=== PATIENT | female | born 1950 | race Caucasian/White ===

== ENCOUNTER → 2017-10-03 03:04 | Outpatient (CLI) | payer OTHER, SELFPAY ==
--- NOTE | 2017-10-03 09:14 | DI.REPORT_ITS ---
SYMPTOM/DIAGNOSIS: EPIGASTRIC PAIN, R10.3 ABDOMEN ULTRASOUND: Comparison is made with 15 May 2007. There is slightly increased liver echogenicity, consistent with mild fatty infiltration. No focal liver lesions or biliary dilatation is seen. The gallbladder is unremarkable, without evidence of stones or wall thickening. A 12 mm cyst is seen at the inferior pole of the right kidney. No hydronephrosis or stones are identified in either kidney. Pancreas, spleen and aorta are unremarkable. No ascites is seen. IMPRESSION: Mild fatty infiltration of the liver.
== END ==
PROVIDERS: PCP Family Medicine; Visit Provider Family Medicine
DX: R10.13 Epigastric pain (principal); K76.0 Fatty (change of) liver, not elsewhere classified; N28.1 Cyst of kidney, acquired
CPT/HCPCS: 76700

== ENCOUNTER 2018-04-06 09:43 | Outpatient (CLI) | payer OTHER, MEDICARE, SELFPAY ==
[2018-04-06 11:53] LABS: ALT 60 U/L (12-78); AST 35 U/L (15-37); Alkaline Phosphatase 92 U/L (46-116); Anion Gap 10.5 mmol/L (3-11); BUN 18 mg/dL (7-18); Bilirubin, Total 0.4 mg/dL (0.2-1.0); CO2 28.5 mmol/L (21.0-32.0); CREATININE 0.61 mg/dL (0.55-1.02); Calcium 9.4 mg/dL (8.5-10.1); Chloride 102 mmol/L (98-107); Cholesterol 245 mg/dL (50-200); Glucose 113 mg/dL (70-100); HDL Cholesterol 58 mg/dL (40-60); LDL CHOLESTEROL 153 mg/dL (<100); Potassium 3.9 mmol/L (3.5-5.1); Sodium 141 mmol/L (136-145); Total Protein 7.6 g/dL (6.4-8.2); Triglyceride 135 mg/dL (30-150); Vitamin B12 617 pg/mL (193-986)
== END 2018-04-06 10:03 ==
PROVIDERS: PCP Family Medicine; Visit Provider Family Medicine
DX: Z00.00 Encounter for general adult medical examination without abnormal findings (principal); I10 Essential (primary) hypertension; E78.5 Hyperlipidemia, unspecified; K21.9 Gastro-esophageal reflux disease without esophagitis
CPT/HCPCS: 36415; 80053; 80061; 83721; 82607

== ENCOUNTER 2018-05-11 06:27 | Day surgery (SDC) | payer OTHER, MEDICARE, SELFPAY ==
[2018-05-11 06:43] VITALS: BP 137/87; PULSE 90; RESP 16; TEMP 36.5; O2SAT 98
[2018-05-11] MEDS: Lidocaine 2% Multi-Dose 50 ML VIAL (07:43)
--- NOTE | 2018-05-11 08:07 | PDOC.DSDIS_ITS ---
Discharge Plan Disposition Patient Disposition: HOME Condition: Good Discharge Details Reason For Visit: Release trigger RRF Attending Provider: Haseeb Ro Primary Care Provider: Rebecca Monsivais Home Meds and New Rx's Prescriptions: New hydrocodone-acetaminophen 5-325 mg tablet 1 tab PO Q6H PRN (Reason: pain) Qty: 7 RF: 0 Continued Lactobacillus acidophilus capsule 10,000 mmu cells PO DAILY RF: 0 loratadine 10 mg tablet 10 mg PO DAILY PRNRF: 0 omeprazole 20 mg tablet,delayed release (DR/EC) 20 mg PO DAILY Qty: 90 RF: 4 cholecalciferol (vitamin D3) 2,000 UNIT tablet 2,000 unit PO DAILY RF: 0 albuterol sulfate [ProAir HFA] 8.5 GM HFA aerosol inhaler 2 puff Inhalation Q4H PRN Qty: 1 RF: 12 fish oil-dha-epa 1 EACH capsule 1 ea PO DAILY RF: 0 ranitidine HCl [Zantac Maximum Strength] 150 MG tablet 150 mg PO daily prn RF: 0 hydrochlorothiazide 25 MG tablet 25 mg PO DAILY Qty: 90 RF: 12 Discharge Instructions Additional Instructions: Bend and straighten R ring finger 10 times/hour when awake to prevent swelling and stiffness. Keep dressings dry and intact for 48 hours. Remove dressings, shower or bathe and get incision wet after 48 hours. Leave incision uncovered when it is dry and sealed. Follow up with in 2 weeks. Hydrocodone for breakthru pain, not relieved by tylenol or ibuprofen. Referrals: Haseeb Ro MD [ [facility] STAFF PHYSICIAN] - (f/u in 2 weeks.) Activity:: Activity as Tolerated Remove Dressings/Wound Care:: 48 hours Shower/Bathe:: 48 hours Diet:: As Tolerated Discharge Orders Discharge Orders: Discharge Order (Routine); Ordered 05/11/18 Ordered By: Haseeb Ro DS: Diagnosis Discharge Diagnosis (1) Trigger finger: Status: Acute
--- NOTE | 2018-05-11 15:20 | ROE_ITS ---
DATE OF PROCEDURE: May 11, 2018 PREOPERATIVE DIAGNOSIS: Trigger right ring finger. POSTOPERATIVE DIAGNOSIS: Same. PROCEDURE: Tendon sheath incision for release of trigger right ring finger. ANESTHESIA: Local infiltration 1% Xylocaine solution and 0.5% Marcaine with epinephrine solution. SURGEON: Haseeb Ro M.D. INDICATIONS: This is a 67-year-old white female with painful locking of her right ring finger. This interferes with her work activities, including typing, because she is right-handed. Because of the failure of the finger to improve over the course of several months, trigger finger release was recomm ended to alleviate her symptoms. The risks and complications of the procedure were explained to the patient in detail preoperatively. PROCEDURE: The patient was taken to the Operating Room on 05/11/18. She was placed supine on the ope rating table. The right hand is prepped and draped free in the usual sterile fashion. Incision was made parallel to the distal palmar flexion crease and about 5 mm distal to it, centered over the flex or sheath of the right ring finger. The incision was made after infiltrating the skin and subcu with 1% Xylocaine solution. About a 2 cm incision was made. Blunt-tipped Littler scissors were then use d to mobilize the soft tissues away from the flexor sheath. The flexor sheath was directly visualize d. A longitudinal incision was made in the midline of the proximal vasile of the flexor sheath. The incision was then extended proximally and distally using blunt-tipped Littler scissors. The patient was then asked to actively flex and extend her ring finger. She could flex and extend the ring fing er fully with no locking or triggering. The wound was irrigated with saline solution. The wound mar gins were infiltrated with 0.5% Marcaine with epinephrine solution. The skin edges were approximated with two interrupted #4-0 Nylon sutures. Sterile dressings were applied followed by a light val sive dressing to the palm. The patient tolerated the procedure well and was discharged to the [facility] in good condition. The patient was discharged home from the Day Surgery Unit when fully recovered from her procedure. S he was given instructions to continue to flex and extend her right ring finger ten times an hour whil e awake to prevent stiffness and swelling. She is to keep the dressings intact and dry for 48 hours. After 48 hours she can remove her dressings, shower or bathe and get her incision wet. She can [place] ve the incision uncovered when it's dry and sealed. She was given a prescription for breakthrough pa in of Hydrocodone with APAP 5/325 one tablet every six hours, if needed. She will take this for pain that's not relieved by Tylenol or ibuprofen. She will follow-up with me in two weeks.
== END 2018-05-11 08:30 | disposition home or self-care (01) ==
PROVIDERS: PCP Family Medicine; Visit Provider Orthopaedic Surgery
PROC: (CPT 26055; principal; 2018-05-11 07:30)
DX: M65.341 Trigger finger, right ring finger (principal)
CPT/HCPCS: 26055

== ENCOUNTER 2019-04-08 10:38 | Outpatient (CLI) | payer OTHER, SELFPAY ==
[2019-04-08 13:44] LABS: ALT 91 U/L (14-59); AST 70 U/L (15-37); Albumin 4.2 g/dL (3.4-5.0); Alkaline Phosphatase 101 U/L (46-116); Anion Gap 7.8 mmol/L (3-11); BUN 13 mg/dL (7-18); Bilirubin, Total 0.5 mg/dL (0.2-1.0); CO2 31.2 mmol/L (21.0-32.0); CREATININE 0.62 mg/dL (0.55-1.02); Calcium 9.9 mg/dL (8.5-10.1); Calculated LDL 159 mg/dL (<100); Chloride 102 mmol/L (98-107); Cholesterol 244 mg/dL (<200); Glucose 110 mg/dL (74-106); HDL Cholesterol 61 mg/dL (40-60); Sodium 141 mmol/L (136-145); TSH (W/Ref FT4) 1.15 uIU/mL (0.36-3.74); Total Protein 7.5 g/dL (6.4-8.2); Triglyceride 121 mg/dL (<150)
[2019-04-08 13:55] LABS: Hemoglobin A1C 6.4 % (3.8-5.6)
== END 2019-04-08 10:58 ==
PROVIDERS: PCP Family Medicine; Visit Provider Family Medicine
DX: I10 Essential (primary) hypertension (principal); R19.7 Diarrhea, unspecified; Z00.00 Encounter for general adult medical examination without abnormal findings; E11.9 Type 2 diabetes mellitus without complications
CPT/HCPCS: 36415; 80053; 80061; 83036; 84443

== ENCOUNTER 2019-06-21 01:29 | Outpatient (CLI) | payer OTHER, SELFPAY ==
--- NOTE | 2019-06-21 06:30 | DI.MAMMO_ITS ---
EXAM: MAMMO SCREENING CLINICAL HISTORY: screening,z12.39 TECHNIQUE: Mammograms were interpreted according to the usual protocol including computer analysis w ith CAD system, tomosynthesis and C-view imaging. COMPARISON: 2009 through 2017 FINDINGS: The breasts are composed of scattered fibroglandular densities, Breast Density category B. No suspicious masses or suspicious microcalcifications are seen. No skin thickening or abnormal axillary lymph nodes are seen. There has been no significant change from prior exams. IMPRESSION: BI-RADS category 1, negative mammogram. Yearly screening mammography is recommended. Breast density category B, scattered fibroglandular densities.
== END 2019-06-21 01:49 ==
PROVIDERS: PCP Family Medicine; Visit Provider Family Medicine
DX: Z12.31 Encounter for screening mammogram for malignant neoplasm of breast (principal)
CPT/HCPCS: 77063; 77067

== ENCOUNTER 2019-10-05 13:02 | Outpatient (REF) | payer MEDICARE, BC, SELFPAY ==
[2019-10-05 13:48] LABS: HCT 42.6 % (36.0-46.0); HGB 14.1 g/dL (11.2-15.7); MCH 28.7 pg (27.0-33.0); MCHC 33.1 % (32.0-36.0); MCV 86.8 fL (80-95); Platelet Count 282 10^3/uL (130-400); RBC 4.91 10^6/uL (3.93-5.22); RDW 13.1 % (11.7-14.6); WBC 5.91 10^3/uL (4.4-10.8)
[2019-10-05 14:30] LABS: ALT 93 U/L (14-59); AST 55 U/L (15-37); Albumin 4.1 g/dL (3.4-5.0); Alkaline Phosphatase 93 U/L (46-116); Anion Gap 10.9 mmol/L (3-11); BUN 12 mg/dL (7-18); Bilirubin, Total 0.4 mg/dL (0.2-1.0); CO2 28.1 mmol/L (21.0-32.0); CREATININE 0.69 mg/dL (0.55-1.02); Calcium 9.6 mg/dL (8.5-10.1); Calculated LDL 158 mg/dL (<100); Chloride 103 mmol/L (98-107); Cholesterol 243 mg/dL (<200); GGT 69 U/L (5-55); Glucose 122 mg/dL (74-106); HDL Cholesterol 58 mg/dL (40-60); Potassium 3.9 mmol/L (3.5-5.1); Sodium 142 mmol/L (136-145); Total Protein 7.5 g/dL (6.4-8.2); Triglyceride 136 mg/dL (<150)
[2019-10-05 14:32] LABS: Hemoglobin A1C 6.2 % (3.8-5.6)
[2019-10-07 04:55] LABS: Vitamin D 25 Total 38.4 ng/ml (30-100)
[2019-10-07 09:57] LABS: HBs Antibody, Qual Negative (See Note); HBs Antibody, Quant 6.1 mIU/mL (See Note); Hepatitis B Core Antibody Negative (Negative); Hepatitis B surface Ag Negative (Negative); Hepatitis C Ab w Rflx HCV PCR Negative (Negative)
== END 2019-10-05 13:22 ==
LOC: LBN 13:02
PROVIDERS: PCP Family Medicine; Visit Provider Family Medicine
DX: E11.9 Type 2 diabetes mellitus without complications (principal); I10 Essential (primary) hypertension; E78.5 Hyperlipidemia, unspecified; K44.9 Diaphragmatic hernia without obstruction or gangrene; M81.0 Age-related osteoporosis without current pathological fracture; R06.02 Shortness of breath; R79.89 Other specified abnormal findings of blood chemistry
CPT/HCPCS: 80053; 80061; 82306; 85027; 86704; 86706; 86803; 87340; 82977; 83036

== ENCOUNTER 2019-10-07 00:06 | Outpatient (CLI) | payer MEDICARE, BC, SELFPAY ==
--- NOTE | 2019-10-07 06:15 | DI.NM_ITS ---
APPROVED REPORT Exam: Exercise Treadmill Patient Location: Out-Patient Room/Bed: Stress Nurse: Yaima Turner RN BMI: 25.88 Baseline Rhythm: Sinus Rhythm Indications: Dyspnea on exertion Medical History Medical History: HTN, Hyperlipidemia, Pre-Diabetes, Asthma Cardiac Medications: Hydrochlorothiazide. Omeprazole. Fish Oil., Allergies: Lisinopril Cardiac Risk Factors: HTN, Hyperlipidemia, Pre-diabetes, Asthma, FHX of CAD Exercise History: Physically active Lung Sounds: Clear to auscultation Heart Sounds: Regular Stress Test Details Test: Exercise stress testing was performed using a Crescencio protocol. Nuclear Acquisition: Rest Tc-99m/Stress Tc-99m 1 day Rest Isotope: Tc-99m Sestamibi. Dose: 10.8 Date: 10/07/2019 Injection Time: 0850 Stress Isotope: Tc-99m Sestamibi. Dose: 32.8 Date: 10/07/2019 Injection Time: 1010 HR Resting HR Supine: 88 bpm Max Heart Rate (APMHR): 150 bpm Resting HR Standin bpm Target HR (85% APMHR): 127 bpm Max HR Achieved: 150 bpm % of APMHR: 100 Recovery HR: 98 bpm HR response to stress: Normal HR response to stress BP Resting BP Supine: 144/80 mmHg Resting BP Standin/82 mmHg Max BP: 170/72 mmHg Recovery BP: 140//78 mmHg BP response to stress: Normal blood pressure response to stress. ECG Resting ECG: Sinus Rhythm Stress ECG: Sinus Tachycardia ST Change: No significant ST segment depressions Arrhythmia: Rare PVC Recovery ECG: Sinus Rhythm Recovery ST Change: Normal Recovery Arrhythmia: None Clinical Reason for Termination: Fatigue Stress Symptoms: General Fatigue Exercise duration: 09 min00 sec Highest Stage Reached: Stage 3: 3.4 mph at 14% grade. Exercise capacity: 10.16 METs Stress ECG Conclusion 1. The patient exercised for 9 minutes (10 minutes) 2. There is no evidence of ischemia on the ECG portion of the exam. 3. Patient no symptoms suggestive of ischemia. Stress Test Summary STAGE Time (mins) Speed (mph) Grade (%) HR BP SYMPTOMS METS Supine 88 144/80 Standing 87 136/82 1 3 1.7 10 117 152/76 4.6 2 6 2.5 12 133 170/72 7 1 min recovery 140 168/70 3 min recovery 106 152/72 6 min recovery 98 140/78 MPI Conclusion The patient's ejection fraction was 72% with stress. There were no wall motion abnormalities. There is no evidence of ischemia on the imaging portion exam. This represents a normal SPECT stress test. Radiologist Interpretation Radiologist agrees with [facility] [employer] [employer]'s Interpretation. Radiologist Interpretation by: Jessica Branch MD
== END 2019-10-07 00:26 ==
PROVIDERS: PCP Family Medicine; Visit Provider Family Medicine
DX: R06.02 Shortness of breath (principal); I10 Essential (primary) hypertension; E78.5 Hyperlipidemia, unspecified; R73.03 Prediabetes; J45.909 Unspecified asthma, uncomplicated; Z82.49 Family history of ischemic heart disease and other diseases of the circulatory system
CPT/HCPCS: 78452; 93016; 93018; 93017

== ENCOUNTER → 2020-02-04 08:08 | Outpatient (BNVA) | payer MEDICARE, BC, SELFPAY | PROVIDERS: PCP Family Medicine; Referring Provider Family Medicine; Visit Provider Student in an Organized Health Care Education/Training Program | DX: M65.331 Trigger finger, right middle finger (principal); I10 Essential (primary) hypertension | CPT/HCPCS: 99214 ==

== ENCOUNTER 2020-02-22 07:14 | Day surgery (SDC) | payer MEDICARE, BC, SELFPAY ==
[2020-02-22 07:20] VITALS: BP 140/92; PULSE 88; RESP 17; TEMP 36.6; O2SAT 98
[2020-02-22] MEDS: Sodium Bicarbonate 50 MEQ/50 ML VIAL (09:21)
--- NOTE | 2020-02-22 09:36 | PDOC.DSDIS_ITS ---
Discharge Plan Disposition Patient Disposition: HOME Condition: Good Discharge Details Reason For Visit: RMF Trigger Attending Provider: Chencho Alford Primary Care Provider: Rebecca Monsivais Home Meds and New Rx's Prescriptions: New acetaminophen 500 mg tablet 500 mg PO Q6H PRN PRN (Reason: pain) Qty: 40 RF: 3 ibuprofen 600 mg tablet 600 mg PO TID PRN (Reason: pain) Qty: 30 RF: 3 Continued loratadine 10 mg tablet 10 mg PO DAILY PRNRF: 0 omeprazole 20 mg tablet,delayed release (DR/EC) 20 mg PO DAILY Qty: 90 RF: 4 albuterol sulfate 90 mcg/actuation HFA aerosol inhaler 2 puff IH Q8H Qty: 6.7 RF: 4 hydrochlorothiazide 25 mg tablet 25 mg PO DAILY Qty: 90 RF: 12 cholecalciferol (vitamin D3) 2,000 UNIT tablet 2,000 unit PO DAILY RF: 0 fish oil-dha-epa 1 EACH capsule 1 ea PO DAILY RF: 0 Discharge Instructions Stand Alone Forms: Rocío Tong Finger Release Referrals: Chencho Alford MD [ [facility] STAFF PHYSICIAN] - Activity:: Elevate Remove Dressings/Wound Care:: 48 hours Shower/Bathe:: 48 hours Discharge Orders Discharge Orders: Discharge Order (Routine); Ordered 02/22/20 Ordered By: Chencho Alford DS: Diagnosis Discharge Diagnosis (1) Trigger finger, right middle finger: Status: Acute
--- NOTE | 2020-02-22 09:59 | W.PM.OP ---
Date of service: 02/22/20 Time of Service: 09:59 Operative Note Operative Note DATE OF PROCEDURE: 02/22/20 PRE-OP DIAGNOSIS: Right Middle Finger Trigger Finger POST-OP DIAGNOSIS: same PROCEDURE: Trigger Finger Release - Right Middle Finger SURGEON: Chencho Alford ANESTHESIA: local PATHOLOGY: none sent COMPLICATIONS: None Patient was transported to: same day Patient's condition: stable Indications: I have seen Genna in clinic for symptoms of a trigger finger. The catching, clicking, locking, and pain limited function. The diagnosis of trigger finger was evident. The symptoms had not responded to conservative measures. I discussed trigger finger release with the patient. I reviewed the risks of the procedure to include, but not limited to, bleeding, infection, pain, stiffness, incomplete release, damage to nerves or vessels, continued catching, recurrence. Despite these risks, the patient elected to proceed. Findings: There was a tightened A1 vasile which was released. The flexor tendons were inspected and the patient was able to move the finger without any catching, clicking, or locking. Procedure Description: Genna was greeted in the preoperative holding area where the correct side was identified and marked. The consent was reviewed with the patient and signed. All questions were answered. Genna was taken back to the operating room. The patient was placed into the supine position on the operating room table with the right arm on an arm board. All bony prominences were well padded. No prophylactic antibiotics were administered since this was a clean, elective hand surgical case. The right arm was then prepped with Chloraprep and draped in a standard fashion with stockinette and extremity drape. A timeout to confirm correct identity, side and site, procedure, allergies, anesthesia, and medical concerns was performed. The surgical site was marked as a longitudinal incision directly over the A1 vasile of the involved digit. This was confirmed with palpation during finger flexion. This area, overlying the metacarpal head, was then anesthetized with 1% Lidocaine. The patient tolerated this well and once the anesthetic had setup, the procedure began. A longitudinal incision was made through skin only, approximately 1cm. The deep tissues were dissected bluntly. Once the A1 vasile and flexor tendons were identified the soft tissue including neurovascular structures were retracted medially and laterally. There were no crossing structures over the A1 vasile. The proximal edge of the vasile was identified and the vasile was incised with tenotomy scissors. There was a release of the tendons once this was fully released. The tendons were then removed from the wound and inspected. Excess synovium was resected. The tendons were then returned and the patient was asked to move the finger into deep flexion and back to extension. There was no recreation of the pre-operative symptoms. The hand was then once more inspected for any A0 vasile or area of possible constriction. The wound was then irrigated and the skin was closed with a 4-0 Nylon. This was dressed with gauze and a Conform dressing. The patient tolerated the procedure well and was returned to the Same Day Surgery area in a stable condition suffering no known complication.
== END 2020-02-22 09:50 | disposition home or self-care (01) ==
PROVIDERS: PCP Family Medicine; Visit Provider Student in an Organized Health Care Education/Training Program
PROC: (CPT 26055; principal; 2020-02-22 09:45)
DX: M65.331 Trigger finger, right middle finger (principal)
CPT/HCPCS: 26055

== ENCOUNTER → 2020-03-02 09:09 | Outpatient (BNVA) | payer MEDICARE, BC, SELFPAY | PROVIDERS: PCP Family Medicine; Referring Provider Family Medicine; Visit Provider Student in an Organized Health Care Education/Training Program | DX: Z47.89 Encounter for other orthopedic aftercare (principal); M65.331 Trigger finger, right middle finger ==

== ENCOUNTER 2020-09-29 02:01 | Outpatient (CLI) | payer MEDICARE, BC, SELFPAY ==
[2020-09-29 13:32] LABS: ALT 68 U/L (14-59); AST 49 U/L (15-37); Albumin 4.1 g/dL (3.4-5.0); Alkaline Phosphatase 88 U/L (46-116); BUN 15 mg/dL (7-18); Bilirubin, Total 0.6 mg/dL (0.2-1.0); CREATININE 0.7 mg/dL (0.55-1.02); Calcium 9.5 mg/dL (8.5-10.1); Calculated LDL 171 mg/dL (<100); Chloride 105 mmol/L (98-107); Cholesterol 255 mg/dL (<200); Glucose 116 mg/dL (74-106); HDL Cholesterol 55 mg/dL (40-60); Potassium 3.5 mmol/L (3.5-5.1); Sodium 137 mmol/L (136-145); Total Protein 7.4 g/dL (6.4-8.2); Triglyceride 147 mg/dL (<150)
[2020-09-29 13:34] LABS: COMMENT (LAB VIEW ONLY) 82.84 mg/dL; Microalb ug/mg Crea 10.4 ug/mg Cr
[2020-09-29 13:44] LABS: Hemoglobin A1C 6.4 % (<5.7)
== END 2020-09-29 02:02 | disposition home or self-care (01) ==
LOC: LOS 02:04
PROVIDERS: PCP Family Medicine; Visit Provider Family Medicine
DX: E11.9 Type 2 diabetes mellitus without complications (principal); E78.5 Hyperlipidemia, unspecified; I10 Essential (primary) hypertension; M81.0 Age-related osteoporosis without current pathological fracture; R79.89 Other specified abnormal findings of blood chemistry
CPT/HCPCS: 36415; 80053; 80061; 82043; 82570; 83036

== ENCOUNTER 2020-12-28 02:11 | Outpatient (CLI) | payer MEDICARE, BC, SELFPAY ==
[2020-12-28 13:04] LABS: Hemoglobin A1C 6.3 % (<5.7)
[2020-12-28 13:17] LABS: BUN 16 mg/dL (7-18); CREATININE 0.7 mg/dL (0.55-1.02); Calcium 9.6 mg/dL (8.5-10.1); Glucose 106 mg/dL (74-106); Total Protein 7.4 g/dL (6.4-8.2)
[2020-12-28 13:18] LABS: AST 62 U/L (15-37); Albumin 4.1 g/dL (3.4-5.0); Alkaline Phosphatase 97 U/L (46-116); Anion Gap 7.9 mmol/L (3-11); Bilirubin, Total 0.6 mg/dL (0.2-1.0); CO2 31.1 mmol/L (21.0-32.0); Chloride 102 mmol/L (98-107); Potassium 3.9 mmol/L (3.5-5.1); Sodium 141 mmol/L (136-145)
[2020-12-28 13:19] LABS: ALT 74 U/L (14-59)
== END 2020-12-28 02:12 | disposition home or self-care (01) ==
PROVIDERS: PCP Family Medicine; Visit Provider Family Medicine
DX: E11.9 Type 2 diabetes mellitus without complications (principal); I10 Essential (primary) hypertension; R79.89 Other specified abnormal findings of blood chemistry
CPT/HCPCS: 36415; 80053; 83036

== ENCOUNTER 2021-05-01 01:27 | Outpatient (CLI) | payer MEDICARE, BC, SELFPAY ==
--- OUTSIDE RECORDS SUMMARY | 2021-05-01 01:28 | XMS_ITS | Encounter Summary ---
:1950 Author Care Team Providers Name Role Phone Rebecca Monsivais Primary Care Provider [phone] [facility] Medical Records Primary Care Provider [phone] [facility] OTHER [phone] Reason for Visit None recorded. Assessment and Plan 1. Obstructive sleep apnea syndr ome Mild CONI with an AHI of 6.9/hr cm. She has been using CPAP 9-12 cm. She tolerates this well. Her AHI is at goal and she continues to benefit from using CPAP with improvement in snoring, night sweats and feeling better rested. Contin ued use of CPAP is recommended. She is encouraged to keep up with the routine maintenance of the machine and to clean and replace parts as indicated. I will see h er back in two years. is asked to call t he clinic for any sleep related questions or concerns. I provided greater than 20 minutes in e care of this patient, more than half the time was spent in [id number] counseling. Discussion Note: None recorded.Patient educational handouts: No information available. Plan of Care Reminders Provider Appointments Return to on or around Chemo Armstrong, Office 03/13/2023 [employer] Lab None ? ? recorded. Referral None ? ? recorded. Procedures None ? ? recorded. Surgeries None ? ? recorded. Imaging None ? ? recorded. Medications Name Start Date ? ? fish oil-dha-epa ? [id number] 1 tab daily hydrochlorothiazide ? 25mg daily losartan 25 mg tablet ? Take 1 tablet every day by oral route. ProAir HFA ? 2 puffs Q4hrs PRN Ranitidine ? 150mg daily PRN Vitamin D3 ? 2000units daily Medications Administered None recorded. Vitals Height Weight BMI 5 ft 2 in 138 lbs 25.2 kg/m2 Results Lab Results None recorded. Allergies Code Code System Name Reaction Severity Onset 66616 RxNorm Lisinopril ? ? ? Problems Name Status Onset Date Source ? Dyspnea Active 12/09/2017 ? Snoring Active 12/09/2017 ? Chest Discomfort Active 12/09/2017 ? Helicobacter Pylori-associated Gastritis Active ? ? Vitamin D Deficiency Active ? ? Hyperlipidemia Active ? ? Obstructive Sleep Apnea Syndrome Active ? ? Hypertensive Disorder Active ? ? Osteoporosis Active ? ? Fatigue Active ? ? Procedures None recorded. Vaccine List None recorded. Social History Tobacco Smoking Status Former Smoker Notes: quit in 1988 Are you currently employed? N Are you blind or do you have N Notes: r eading glasses difficulty seeing? What was the date of your most recent 03/03/2018 tobacco screening? What is your level of alcohol None consumption? Live alone or with others? with others Notes: hus band Language Difficulties No Hard of hearing or deaf in one or N both ears? What is your level of caffeine Notes: 1 cup coffee daily, 2 consumption? cans soda daily Functional Status No Impairment. Past Encounters 03/13/2021 Obstructive Sleep Apnea Syndrome Bernarda Armstrong, [employer]: [address] [place] [phone], Ph. History of Present Illness Note: <p>Genna Patel has a Zoom for CONI follow-up. She has given consent to have a telehealthvisit. Patient is at home, provider is in the office.</p><div>
</div><p>Genna was last seen by me on 05/09/20. She noted symptoms of fatigue, occasional nocturnal choking, sleep fragmentation and frequent night sweats (couple times a night). She had a PSG on 12/10/17 (BMI 24.47). Sleep efficiency was 90%, AHI 6.9/hr, RDI 12.5/hr, REM AHI 22.9/hr, REM RDI 29.5/hr, supine AHI 4/hr, right lateral AHI 4/hr, left lateral AHI 11/hr, sp02 unruly 85%, 1 minute was spent at a saturation <88%, arousal index 10/hr, PLMi 17.4/hr, PLM arousal index 0/hr. EKG NSR. Intermittent snoring was heard throughout the night. Last visit she was using CPAP 9-12 cm with an Jessica View with excellent compliance and reduction in AHI. </p><div>
</div><div>Genna tells me she is using her CPAP most every night. She only misses a night if she is having skin irritation from the mask. The air pressure feels good. She is using the Jessica View and dows well withthis. She gets to bed around 9-10 pm, she falls asleep in up to 15 minutes. She wakes up 2/night unknown reason and she gets back to sleep easily most nights and only occasionaly has trouble getting back to sleep because of acid reflux. She is not napping, she is not snoring, she is not waking choking/gasping and no nocturia. Her night sweats are about twice a week.</div><div>
</div><div>
</div><p>ESS today 04/12</p><div>
</div><div>COMPLIANCE DATA REVIEWED WITH PATIENT: {{DATES 01/31/21=03/01/21#}}, Used {{25* 30}}/30 days, average use {{5 6*}} hours {{number 47#}} minutes a night, mean pressure {{8 9 9.5#}}cm, 90 th percentile pressure {{9 10 10.5#}}cm, time in large air leak {{5 10 2.5#}} minutes, AHI {{1 2 2.5#}}/hour.</div><div>
</div>Review of Systems: ROS as noted in the HPI Review of Systems None recorded. Physical Exam ? Notes: <div>N/A</div>
--- OUTSIDE RECORDS SUMMARY | 2021-05-01 01:28 | XMS_ITS ---
:1950 Author Care Team Providers Name Role Phone JANICE AGUIRRE Primary Care Provider [phone] [facility] REC[facility]DS Primary Care Provider [phone] [facility] OTHER [phone] Allergies Code Code System Name Reaction Severity Status Onset 08038 RxNorm Lisinopril ? ? Active ? Medications Name Status Start Date Stop Date ? ? amoxicillin Completed ? 12/09/2017 500mg- 2 tabs BID clarithromycin Completed ? 12/09/2017 500mg BID fish oil-dha-epa Active ? Not available [id number] 1 tab daily hydrochlorothiazide Active ? Not availabl e 25mg daily losartan 25 mg tablet Active ? Not availa ble Take 1 tablet every day by oral route. omeprazole Completed ? 12/09/2017 20mg daily omeprazole 40 mg capsule,delayed release Completed ? 12/09/2017 Take 1 capsule every day by oral route. ProAir HFA Active ? Not available 2 puffs Q4hrs PRN Ranitidine Active ? Not available 150mg daily PRN Vitamin D3 Active ? Not available 2000units daily zolpidem 5 mg tablet Completed ? 12/30/2017 Take 1-2 PO night of sleep study Problems Name Status Onset Date Source ? Dyspnea Active 12/09/2017 ? Snoring Active 12/09/2017 ? Chest Discomfort Active 12/09/2017 ? Helicobacter Pylori-associated Gastritis Active ? ? Vitamin D Deficiency Active ? ? Hyperlipidemia Active ? ? Obstructive Sleep Apnea Syndrome Active ? ? Hypertensive Disorder Active ? ? Osteoporosis Active ? ? Fatigue Active ? ? Procedures Date Name Performed by ? 12/09/2017 Polysomnogram Information not avai lable Results Lab Results None recorded. Past Encounters 03/13/2021 Obstructive Sleep Apnea Syndrome Bernarda Armstrong [employer]: [address] [place] [phone], Ph. 05/09/2020 Obstructive Sleep Apnea Syndrome Bernarda Armstrong NP: [address] [place] [phone], Ph. Social History Tobacco Smoking Status Former Smoker Notes: quit in 1988 Vaccine List None recorded. Plan of Care Reminders Provider Appointments None ? ? recorded. Lab None ? ? recorded. Referral None ? ? recorded. Procedures None ? ? recorded. Surgeries None ? ? recorded. Imaging None ? ? recorded. Vitals 03/13/2021 01:15PM Office 30 Height Weight BMI 157.48 cm 62.6 kg 25.2 kg/m2 05/09/2020 10:00AM Office 30 Height Weight BMI Blood Pressure 157.48 cm 62.6 kg 25.2 kg/m2 142/86 mm[Hg] 03/03/2018 09:30AM Office 30 Height Weight BMI Blood Pressure 157.48 cm 61.42 kg 24.8 kg/m2 138/82 mm[Hg] 12/30/2017 11:00AM Office 30 Height Weight BMI Blood Pressure 157.48 cm 61.69 kg 24.9 kg/m2 140/82 mm[Hg] 12/09/2017 11:00AM New Patient 45 Height Weight BMI Blood Pressure 157.48 cm 60.69 kg 24.5 kg/m2 130/78 mm[Hg]
[2021-05-01 09:36] LABS: Hemoglobin A1C 6.5 % (<5.7)
[2021-05-01 10:39] LABS: ALT 77 U/L (14-59); AST 50 U/L (15-37); Albumin 4.2 g/dL (3.4-5.0); Alkaline Phosphatase 98 U/L (46-116); Anion Gap 8.1 mmol/L (3-11); BUN 19 mg/dL (7-18); Bilirubin, Total 0.5 mg/dL (0.2-1.0); CO2 29.9 mmol/L (21.0-32.0); CREATININE 0.7 mg/dL (0.55-1.02); Calcium 9.8 mg/dL (8.5-10.1); Chloride 100 mmol/L (98-107); Glucose 116 mg/dL (74-106); Potassium 3.8 mmol/L (3.5-5.1); Sodium 138 mmol/L (136-145); Total Protein 7.9 g/dL (6.4-8.2)
== END 2021-05-01 01:28 | disposition home or self-care (01) ==
LOC: LBO 01:27
PROVIDERS: PCP Family Medicine; Visit Provider Family Medicine
DX: E11.9 Type 2 diabetes mellitus without complications (principal); R79.89 Other specified abnormal findings of blood chemistry
CPT/HCPCS: 36415; 80053; 83036

== ENCOUNTER → 2021-05-16 01:55 | Outpatient (CLI) | payer MEDICARE, BC, SELFPAY ==
--- NOTE | 2021-05-16 06:45 | DI.RAD_ITS ---
Exam(s) RF BARIUM SWALLOW EXAM: RF BARIUM SWALLOW CLINICAL HISTORY: dysphagia - intermittently R13.10 TECHNIQUE: 2D and realtime digital imaging was performed. COMPARISON: CR CHEST 2 VIEWS PA,LAT from 10/02/2015 FINDINGS: Preliminary films of the chest and neck are unremarkable. Barium was ingested and showed grossly nor mal hypo pharyngeal motility. There is normal esophageal motility and mucosal appearance. No esopha geal stricture. 12 millimeter barium tablet passed easily through the esophagus into the stomach. IMPRESSION: Negative barium swallow. RADIATION DOSE DELIVERED: miguelito De La Rosa= 29.9 mGy
[2021-05-16] MEDS: Barium Sulfate 700 MG TAB PO (09:30)
[2021-05-16] MEDS: Simethicone/Sod Bicarb/Cit Ac, 4 gram PACKET 1 PACKET PO (09:31)
[2021-05-16] MEDS: Barium Sulfate 60% W/V 355 ML BTL PO (09:32)
== END ==
PROVIDERS: PCP Family Medicine; Visit Provider Family Medicine
DX: R13.10 Dysphagia, unspecified (principal)
CPT/HCPCS: 74221; J3490

== ENCOUNTER 2021-06-15 00:40 | Outpatient (CLI) | payer MEDICARE, BC, SELFPAY ==
--- OUTSIDE RECORDS SUMMARY | 2021-06-15 00:41 | XMS_ITS ---
:1950 Author Care Team Providers Name Role Phone JANICE AGUIRRE Primary Care Provider [phone] [facility] MEDICAL RECORDS Primary Care Provider [phone] [facility] OTHER [phone] Allergies Code Code System Name Reaction Severity Status Onset 33380 RxNorm Lisinopril ? ? Active ? Medications Name Status Start Date Stop Date ? ? amoxicillin Completed ? 12/09/2017 500mg- 2 tabs BID clarithromycin Completed ? 12/09/2017 500mg BID fish oil-dha-epa Active ? Not available [id number] 1 tab daily hydrochlorothiazide Active ? Not [...] 03/13/2021 Obstructive Sleep Apnea Syndrome Bernarda Armstrong [employer]OR [employer]: [address] [place] [phone], Ph. 05/09/2020 Obstructive Sleep Apnea Syndrome Bernarda Armstrong NP: [address] [place] [phone], Ph. Social History Tobacco Smoking Status Former [...]
--- NOTE | 2021-06-15 08:15 | DI.DEXA_ITS ---
Exam(s) XR DEXA BONE DENSITY W/WO BRETT EXAM: XR DEXA BONE DENSITY W/WO BRETT CLINICAL HISTORY: osteoporosis,m81.0 TECHNIQUE: EZDOCTOR C densitometer COMPARISON: 2014 FINDINGS: Lateral view of the thoracic and lumbar spine shows no evidence of compression fractures. Bone mineral density measurements of the lumbar spine correspond to a total T-score of -3.4, in the osteoporotic range. 6.8 percent decrease compared with 2014 Bone mineral density measurements of the left hip correspond to a total T-score of -2.2. The femora l neck T-score is -2.7, representing a 6.0 Percent decrease compared with 2014. The left forearm bone mineral density measurements correspond to a T-score of the distal 3rd of nega tive 2.9, in the osteoporotic range, unchanged from prior.. IMPRESSION: Osteoporosis of the lumbar spine, left hip and left forearm
--- NOTE | 2021-06-15 15:41 | DI.MAMMO_ITS ---
Exam(s) MAMMO SCREENING EXAM: MAMMO SCREENING CLINICAL HISTORY: screening,z12.39 TECHNIQUE: Mammograms were interpreted according to the usual protocol including computer analysis w TRUSTe CAD system, tomosynthesis and C-view imaging. COMPARISON: 2011 through 2019 FINDINGS: The breasts are composed of scattered fibroglandular densities, Breast Density category B. No suspicious masses or suspicious microcalcifications are seen. No skin thickening or abnormal axillary lymph nodes are seen. There has been no significant change from prior exams. IMPRESSION: BI-RADS Category 1, Negative mammogram Yearly screening mammography is recommended. Breast Density - Category B, scattered fibroglandular densities. A negative radiographic report should not delay biopsy if a dominant or clinically suspicious mass is present. Up to ten percent of cancers are not identified on mammography. A negative report may reinforce clinical impression. Adenosis and dense breasts may obscure an underlying neoplasm. False positive reports average 6 to 10%. Patient will receive a letter notifying them of these results.
== END 2021-06-15 01:00 ==
PROVIDERS: PCP Family Medicine; Visit Provider Family Medicine
DX: Z12.31 Encounter for screening mammogram for malignant neoplasm of breast (principal); M81.0 Age-related osteoporosis without current pathological fracture
CPT/HCPCS: 77063; 77067; 77080

== ENCOUNTER 2021-06-21 02:22 | Outpatient (CLI) | payer MEDICARE, BC, SELFPAY ==
--- NOTE | 2021-06-21 08:30 | DI.US_ITS ---
Exam(s) US THYROID EXAM: US THYROID CLINICAL HISTORY: left thyroid enlargement,GOITER,E04.9 TECHNIQUE: Ultrasound performed using standard protocol. COMPARISON: US ABDOMEN ULTRASOUND (P) from 10/03/2017 FINDINGS: Thyroid ultrasound was performed according to the usual protocol. Right thyroid lobe measures 41 x 1 0 x 10 millimeters and left thyroid lobe measures 43 x 9 x 9 millimeters. The isthmus is about 2 mil limeters in thickness. Thyroid parenchyma is homogeneous throughout. No thyroid mass or nodule identified. IMPRESSION: Normal thyroid ultrasound. DATA REPOSITORY:
== END 2021-06-21 02:42 ==
PROVIDERS: PCP Family Medicine; Visit Provider Family Medicine
DX: E04.8 Other specified nontoxic goiter (principal)
CPT/HCPCS: 76536

== ENCOUNTER 2021-09-04 02:11 | Outpatient (CLI) | payer MEDICARE, BC, SELFPAY ==
--- OUTSIDE RECORDS SUMMARY | 2021-09-04 02:15 | XMS_ITS | Encounter Summary ---
:1950 [place] [address] Care Team Providers Name Role Phone Rebecca Monsivais MD Primary Care Provider Reason for Visit Reason Comments Wound Check Encounter Details Date Type Department Care Team Description 03/25/2012 Follow-Up Dermatology at [facility], Visit for wound check Geri NAVAS (Primary Dx) [address] [place] [address] [address] [phone] [facility]-DERMATOLOGY [place], [place] [address] (Wo rk) Social History Tobacco Use Types Packs/Day Years Used Date Former Smoker Sex Assigned at Date Recorded Not on file documented as of this encounter Progress Notes Hawa Landeros RN - 03/25/2012 3:57 PM EST CC: Wound check HPI: Patient is a 61 y.o. female with history of basal cell carcinoma left paranasal, s/p Mohs, repaired by complex linear repair and full thickness skin graft 01/21/12 who presents for wound check. Patient had Kenalog 5mg/ml injection on 02/26/12. Reports improvement in the scar. ROS: Otherwise well. No other skin complaints. Exam: General: No acute distress Skin: Limited examination of left paranasal shows a well-healed graft and incision. Assessment and Plan 1. Basal cell carcinoma left paranasal s/p Mohs with full thickness skin graft repair. Discussed option of Kenalog [place] injection today, patient declined. Encouraged massage of the area daily. Follow up with myself in 2-3 months. documented in this encounter Plan of Treatment Upcoming Encounters Date Type Specialty Care Team Description 12/24/2021 Office Visit Dermatology Aryan Chris MD [address] [place] [address] DERMATOLOGY [place], [place] [address] (Wo rk) documented as of this encounter Visit Diagnoses Diagnosis Visit for wound check - Primary Encounter for other specified aftercare documented in this encounter Care Teams Certified Emergency Vehicle Technician Relationship Specialty Start Date End Date Rebecca Monsivais MD PCP - General 01/09/[address] [place] [address] documented as of this encounter
--- OUTSIDE RECORDS SUMMARY | 2021-09-04 02:15 | XMS_ITS | Encounter Summary ---
:1950 Author Organization [facility] [place] [address] Care Team Providers Name Role Phone Rebecca Monsivais MD Primary Care Provider Reason for Visit Reason Comments Suture / Staple Removal Encounter Details Date Type Department Care Team Description 01/28/2012 Clinical Support Dermatology at [facility] Visit for suture removal (Primary Dx); Debra Jiang MD BCC (basal cell carcinoma) [address] [facility] [address] [place] [phone] RD-DERMATOLOGY [place] [id number] Social History Tobacco Use Types Packs/Day Years Used Date Former Smoker Sex Assigned at Date Recorded Not on file documented as of this encounter Progress Notes Rg Mon MD - 01/28/2012 3:57 PM EST HPI: Patient is a 61 y.o. female with history of basal cell carcinoma, left paranasal, s/p Mohs repaired by full thickness skin graft with donor site of left cheek repaired by complex linear closure who is presenting for suture removal. Exam: General: No acute distress Skin: Limited examination of left paranasal shows a graft with yellow fibrinous debris noted. Limited examination of the left cheek shows a well healed incision. Assessment and Plan 1. Basal cell carcinoma left paranasal s/p Mohs with full thickness skin graft with partial loss of the graft. Bolster removed, area cleaned with saline, vaseline and bandaid applied, prescription given for Bactroban 2% ointment to apply BID. 2. Left cheek - donor site, s/p complex linear repair. Sutures removed. Vaseline and bandaid applied. Wound care instructions given. Follow up in 1 month Is there another skin cancer that requires treatment? No Has this been scheduled? N/A documented in this encounter Plan of Treatment Upcoming Encounters Date Type Specialty Care Team Description 12/24/2021 Office Visit Dermatology Aryan Chris MD [address] [place] [address] DERMATOLOGY [place], [place] [address] (Wo rk) documented as of this encounter Visit Diagnoses Diagnosis Visit for suture removal - Primary Encounter for removal of sutures BCC (basal cell carcinoma) Basal cell carcinoma of skin, site unspe cified documented in this encounter Care Teams Production Operations Manager Relationship Specialty Start Date End Date Rebecca Monsivais MD PCP - General 01/09/[address] [place] [address] documented as of this encounter
--- OUTSIDE RECORDS SUMMARY | 2021-09-04 02:15 | XMS_ITS | Encounter Summary ---
:1950 [place] [address] Care Team Providers Name Role Phone Rebecca Monsivais MD Primary Care Provider Reason for Visit Reason Comments Follow-up Skin Check Encounter Details Date Type Department Care Team Description 12/17/2018 Office Visit Dermatology at [facility] Basal c ell carcinoma of scalp; Thai NAVAS SK (seborrheic keratosis); [address] [facility] Seborrheic keratosis, inflamed Armin B DERMATOLOGY [place], [place] [id number] [phone] Social History Tobacco Use Types Packs/Day Years Used Date Former Smoker Smokeless Tobacco: Never Used Alcohol Use Standard Drinks/Week Comments No 0 (1 standard drink = 0.6 oz pure alcoho l) Sex Assigned at Date Recorded Not on file documented as of this encounter Progress Notes Aryan Chris MD - 12/17/2018 8:00 AM EDT Problem: 1. New skin lesions of concern 2. History of multiple nonmelanoma cutaneous malignancies 3. History BCC right nasal bridge August 2005 test post shave C&D 4. History of Mohs surgery left nasal sidewall [address] Schmid 5. History of Mohs surgery BCCA frontal parietal scalp September [address] Raj Vail follows up with the last see me in 2009. In the meantime she is was seen at [facility] as noted above. She has a new lesion of concern on the left cutaneous lip. She like to have a general skin checkup. She was getting yearly checks at [facility]. Physical examination reveals a pleasant 68-year-old woman who has a pearly papule 3 mm in diameter on the left cutaneous lip. Otherwise careful examination of the scalp the face the neck the chest the back the hands the arms deforms the thighs and the calves is unremarkable. She has numerous seborrheic keratoses on her back 3 on the right lateral cheek one above the left eyebrow and numerous toscano red hemangiomas on the abdomen and anterior legs. She is very fair skin type II Marroquin pigmentation and is of [place] ethnic descent. Assessment and plan: Rule out BCCA left cutaneous lip 1. After obtaining informed consent site was anesthetized and removed with shave C&D x3 2. After curettage site measured 5 mm in diameter 3. Return to clinic in another year for repeat check. History of multiple nonmelanoma cutaneous malignancies 1. No evidence recurrence at the above noted prior treatment sites. Irritated seborrheic keratoses forehead and right restorationism, and left left posterior calf 1. LN 2??2 applied to each of 3 sites. CC: Rebecca Monsivais MD documented in this encounter Plan of Treatment Upcoming Encounters Date Type Specialty Care Team Description 12/24/2021 Office Visit Dermatology Aryan Chris MD [address] [place] [address] DERMATOLOGY [place], [place] [address] (Wo rk) documented as of this encounter Visit Diagnoses Diagnosis Basal cell carcinoma of scalp Basal cell carcinoma of scalp and skin o f neck SK (seborrheic keratosis) Other seborrheic keratosis Seborrheic keratosis, inflamed Inflamed seborrheic keratosis documented in this encounter Care Teams Police Commanding Officer Relationship Specialty Start Date End Date Rebecca Monsivais MD PCP - General 01/09/[address] [place] [address] (work) documented as of this encounter
--- OUTSIDE RECORDS SUMMARY | 2021-09-04 02:15 | XMS_ITS | Encounter Summary ---
:1950 [place] [address] Care Team Providers Name Role Phone Rebecca Monsivais MD Primary Care Provider Reason for Visit Reason Comments Skin Check Encounter Details Date Type Department Care Team Description 12/20/2019 Office Visit Dermatology at [facility] SK (stephani orrheic keratosis); Thai NAVAS History of basal cell carcinoma; [address] [facility] J Luis Paul DERMATOLOGY [place], [place] [id number] [phone] Social History Tobacco Use Types Packs/Day Years Used Date Former Smoker Smokeless Tobacco: Never Used Alcohol Use Standard Drinks/Week Comments No 0 (1 standard drink = 0.6 oz pure alcoho l) Sex Assigned at Date Recorded Not on file documented as of this encounter Progress Notes Aryan Chris MD - 12/20/2019 10:00 AM EST Problem: 1. New skin lesions of concern 2. History of multiple nonmelanoma cutaneous malignancies 3. History BCC right nasal bridge August 2005 test post shave C&D 4. History of Mohs surgery left nasal sidewall [address] Schmid 5. History of Mohs surgery BCCA frontal parietal scalp September [address] Anthony 6. History of BCCa of left cutaneous lip November 2018 7. History of rosacea Genna follows up for repeat check. She is been doing well. She is noticing numerous new seborrheic keratosis on her back and forehead and legs. She states her grandmother had quite a few seborrheic keratoses, but not her parents. Physical examination reveals a pleasant 69-year-old woman who has a benign examination of the scalp the face the neck the chest the back the hands the arms of forearms the thighs and the calves. There is no evidence of recurrent tumor at any of the prior treatments as noted above. She has a number of stucco keratosis on her forehead cheeks and legs. She has pigmented seborrheic keratosis on her back and flanks in a number of toscano red hemangiomas. There is no concerning malignant lesions today. Shehas a number of skin tags present on the around the base of the neck circumferentially and several also on the presternal chest. Assessment plan: History of multiple nonmelanoma cutaneous malignancies 1. Patient sure about his benign skin examination 2. No evidence recurrence of prior treatment sites 3. Return to clinic in a year for repeat check. Rosacea facial again active 1. In the past patient has used Sulfacet-R 5% lotion and then later successfully used metronidazole cream 0.75%. 2. Prescription will be called in for metronidazole 0.75% cream to [facility] pharmacy in [place]. Dispense 45 g with 5 refills. Plan to face twice daily as needed. Seborrheic keratoses and tags 1. Patient reassured about the benign nature 2. Discussed option of removing these if they become symptomatic patient defers today. Return to clinic in 1 year CC: Rebecca Monsivais MD documented in this encounter Plan of Treatment Upcoming Encounters Date Type Specialty Care Team Description 12/24/2021 Office Visit Dermatology Aryan Chris MD [address] [facility] DERMATOLOGY [place], [place] [address] (Wo rk) documented as of this encounter Visit Diagnoses Diagnosis SK (seborrheic keratosis) Other seborrheic keratosis History of basal cell carcinoma Personal history of other malignant neop lasm of skin Rosacea documented in this encounter Care Teams Surplus Property Disposal Agent Relationship Specialty Start Date End Date Rebecca Monsivais MD PCP - General 01/09/[address] [place] [address] documented as of this encounter
--- OUTSIDE RECORDS SUMMARY | 2021-09-04 02:15 | XMS_ITS | Encounter Summary ---
:1950 [place] [address] Care Team Providers Name Role Phone Rebecca Monsivais MD Primary Care Provider Reason for Visit Reason Comments Skin Check Encounter Details Date Type Department Care Team Description 10/25/2015 Office Visit Dermatology at [facility] Adolfo Vides MD Seborrheic keratoses; [facility] Seborrheic dermatitis of sca lp; [address] Herpes simplex virus infection; [place] [address] [facility] History of basal cell carcin kenia [phone] RD-DERMATOLOGY [place], [place] [address] Social History Tobacco Use Types Packs/Day Years Used Date Former Smoker Alcohol Use Standard Drinks/Week Comments No 0 (1 standard drink = 0.6 oz pure alcoho l) Sex Assigned at Date Recorded Not on file documented as of this encounter Progress Notes Lamar Vides MD - 10/25/2015 10:30 AM EDT DERMATOLOGY - ESTABLISHED PATIENT NOTE Date of service: 10/25/2015 Genna Patel : 1950 CC: skin cancer exam, rash on buttocks Past Skin History: BCC - 11/2011 -MOH's left paranasal, several in the past- scalp,nose ?? HPI: Genna Patel is a 65 y.o. established patient, last seen by Dr. Fernandez on 07/29/14. Here todaywith the following concerns: - She states has a rash on left buttocks, been present for 2 weeks, no treatment tried. She states today it has been a little itchy. She is wondering it it was shingles? She denies it being painful feels it's going away. She did have the shingles vaccine. She has never had this before. - History of BCC left paranasal 2012 moh's Last FSE: 07/29/14 Current sun protection: SPF 30 -50 and hat's Procedure Screening Questions: No Yes Defibrillator/Pacemaker x Artificial Joints x Heart Valves x Blood Thinners ASA 81 mg daily Prophylactic Antibiotics x Social History: Occupation: Retired [employer] Medical History: Past Medical History Diagnosis Date ??? Basal cell carcinoma ??? Hyperlipidemia ??? Hypertension Medications: mupirocin No Known Allergies Review of Systems: - General: Feels well. - Skin: No other skin concerns. Examination: - Constitutional: Patient was alert, well-appearing and in no noticeable distress. - Skin exam: Patient was asked to disrobe to the level of their comfort. A total body skin exam except for the genitalia was performed. This includes examination of the skin of the face, ears, neck, chest, axillae, left and right upper and lower extremities, hands, feet, abdomen, back, and buttocks. The genitalia, perineum, and perianal areas were not examined. Notable findings/Assessment/Plan: 1. Diffuse mild erythema and scaling patchy on scalp Seborrheic dermatitis on scalp- mild, itchy to her. - Discussed treatment by shampooing with Head and shoulders and massaging into the scalp. If this does not help, she may call and I can prescribe a low potency topical steroid. 2. Multiple 0.4-1 cm, brown-black papules/plaques with waxy stuck on appearance Seborrheic keratosis - Patient reassured benign in nature - No treatment needed at this time 3. Erythematous patch with some uniform 2-3 mm macules on left buttocks Herpes simplex vs Herpes zoster This area is resolving phase, healing. I favor HSV 1 but not certain. - Discussed HSV- different pattern some people can have it for many years and harbor it in their system and it comes out for some reason such as medical stress or something else can trigger. In generalif it comes back in 3 months or so it's more likely to be the herpes simplex virus. It can be spreadby open sores. If open, weepy, should be covered to prevent spread. If getting more blisters, redness or it becomes painful treatment can be given to help. RTC: In 1 year for full skin exam or PRN if problems arise Note initiated by SHELLY DOBBS LPN. I am documenting this encounter acting as the scribe for and inthe presence of Lamar Vides I performed the above scribed service and agree with the accuracy of the documentation in this encounter. Reviewed and signed by: Lamar Vides MD Dermatology [facility] documented in this encounter Plan of Treatment Upcoming Encounters Date Type Specialty Care Team Description 12/24/2021 Office Visit Dermatology Aryan Chris MD [address] [facility] DERMATOLOGY [place], [place] [address] (Wo rk) documented as of this encounter Visit Diagnoses Diagnosis Seborrheic keratoses Seborrheic dermatitis of scalp Other seborrheic dermatitis Herpes simplex virus infection Herpes simplex without mention of compli cation History of basal cell carcinoma Personal history of other malignant neop lasm of skin documented in this encounter Care Teams Ecological Economist Relationship Specialty Start Date End Date Rebecca Monsivais MD PCP - General 01/09/[address] [place] [address] documented as of this encounter
--- OUTSIDE RECORDS SUMMARY | 2021-09-04 02:15 | XMS_ITS | Encounter Summary ---
:1950 Author Organization [facility] [place] [address] Care Team Providers Name Role Phone Rebecca Monsivais MD Primary Care Provider Reason for Visit Reason Comments Skin Lesion Encounter Details Date Type Department Care Team Description 12/06/2011 Follow-Up Dermatology Lamar, Skin lesion of face (Primary Dx); [facility] Rebecca Newman [place] [address]-DERMATOLOGY [place] [address] (Wo rk) Social History Tobacco Use Types Packs/Day Years Used Date Former Smoker Sex Assigned at Date Recorded Not on file documented as of this encounter Progress Notes Lamar Vides MD - 12/13/2011 3:39 PM EDT I was the supervising physician working with dermatology resident Dr. Rebecca Newton in the dermatology clinic during this patient visit. The level of Resident supervision for this patient visit was indirect supervision with direct supervision immediately available. (definition: [facility] Policy Statement on Graduate Medical Education, Supervision of Graduate Medical Trainees) I was immediately available to Dr. Newton for questions and discussion regarding this visit. I have reviewed his encounter note details and level of service. Lamar, Rebecca Newman MD - 12/06/2011 2:10 PM EDT DERMATOLOGY - ESTABLISHED PATIENT FOLLOW-UP Date of service: 12/06/2011 Genna Patel : 1950 Dermatology Resident Note: Rebecca Newton MD Chief Problem: Chief Complaint Patient presents with ??? Skin Lesion Ms. Genna Patel is a 61 y.o. female. This is an established patient, last seen by Dr. Aryan dyson on 12-12-2009. HPI: Ms. Patel presents for full skin exam. She is concerned about a new papule on the left nasal side wall that has appeared since her last visit with Dr Dyson. Actively avoids the sun. No other skin complaints. Skin History: basal cell carcinoma. Rosacea Medical History: There is no problem list on file for this patient. Medications: Current outpatient prescriptions ordered prior to encounter Medication Sig Dispense Refill ??? DISCONTD: alendronate (FOSAMAX) 70 mg tablet 70mg, PO, QWEEK Allergies: No Known Allergies Family History: No family history of melanoma or non-melanoma skin cancer No family history of atopy, psoriasis or other skin disease Social History: Review of Systems: - General: Feels well. - Skin: As per HPI; no other skin concerns. Examination: - Constitutional: Patient was alert, well-appearing and in no noticeable distress. - Skin: A full skin examination was performed. This includes the head, neck, face and scalp including behind the ears. The chest, abdomen, back, and axillae, as well as the arms, hands, palms, fingers.Legs, feet, toes and soles were also examined. Buttocks and breasts were also examined with patient consent. Genitalia were not examined. Specific skin findings: 1. 0.2-0.3cm scaly irregular pink papule-forehead 2. 0.4 mm flesh colored papule-left paranasal. Diagnosis/Assessment/Treatment Plan: 1.actinic keratosis-Procedure(s): Destruction of lesion(s) with cryotherapy. Number: 1 Location: as above Discussed procedure and expectations including risks (including risk of hypopigmentation) and benefits. Verbal consent obtained. Frozen with LN2, 15-30 second thaw time, TWICE. There were no complications; the patient tolerated the procedure well. Post-procedure expectations and wound care were reviewed. 2. basal cell carcinoma / fibrosis papule Procedure: Skin biopsy. Location: left paranasal Discussed indications for procedure and expectations including risks and benefits. Verbal consent obtained. Skin prep with alcohol. Local anesthesia with 1% xylocaine, 1/100,000 epinephrine, 0.1 mEq/mLbicarbonate. A sample of the lesion was removed by shave technique to the level of the dermis and submitted to Pathology. Hemostasis obtained (AlCl and/or electrocautery). There were no complications; the pt. tolerated the procedure well. The wound was dressed. Post-procedure expectations, wound care and activity restrictions were reviewed. Discussed mohs procedure if basal cell carcinoma. Follow-up based on pathology results. Follow-up:with dr. Dyson. RTC in 1 year. Instructed to call for questions or concerns. Rebecca Newton MD Resident in Dermatology [facility] Patient seen and evaluated with staff grocery store clerk: Lamar Vides MD Section of Dermatology [facility] documented in this encounter Plan of Treatment Upcoming Encounters Date Type Specialty Care Team Description 12/24/2021 Office Visit Dermatology Aryan Dyson MD [address] [place] [address] DERMATOLOGY [place], [place] [address] (Wo rk) documented as of this encounter Procedures Procedure Name Priority Date/Time Associated Diagnosis Comme [facility] SURGICAL PATHOLOGY Routine 12/06/2011 4:03 PM Res ults for this REPORT EDT procedure are i n the results section. SPECIMEN TO Routine 12/06/2011 2:13 PM Skin lesion of face Re sults for this PATHOLOGY (NON-OR) EDT procedure are in the results section. documented in this encounter Results SURGICAL PATHOLOGY REPORT (12/06/2011 4:03 PM EDT) Component Value Ref Test Analysis Performed At [facility] gist Range Method Time Signature Surgical CERNER Pathology ? [facility]– [place] ? Provider: ?? JD-JAZMYNE, ? Pt. Name: ?? GENNA JOHNSON ?REBECCA I ? Acc #: ?[id number] ? Pt. ? Col Date: ?? 12/06/19 12 ?/Sex: ?1950,(61 years),Female ? Rec Date: ?? 12/06/2011 ?LOC: ?4M ? SURGICAL PATHOLOGY ? ---Pathologic Diagnosis--- ? Skin, left paranasal, shave biopsy: ?Basal cell carci noma with micronodular features, involving peripheral ? and deep biopsy edges. ? CR-0 ? 12/07/11 ? AJE ? 12/08/11 Verified by: ? Renee Vickers MD ? Dermatopatholo gist ? (Electronic Si gnature) ? The attending pathologist whose signature appears o n this report has ? reviewed all diagnostic slides and has edited the fabio ss and/or ? microscopic portion of the report in rendering the fi nal pathologic ? diagnosis. ? ---Microscopic Description--- ? Slides reviewed, microscopic description not recorded . ? ---Gross Description--- ? Labeled/Fixative: ? Labeled with the patient's na me, formalin. ? Qty/Size/Weight: ?Single papule, 0.4 x 0.2 cm, pink-white. ? Sections/Processing: ??Bisected. ??(T1) ??aje/SNS ? ---Clinical Information--- ? Specimen Submitted: ? A - Skin, left paranasal, shave biopsy (1) ? Clinical History/Diagnosis: ? 0.4-mm flesh-colored papule / basal cell carcinoma, f ibrous papule Specimen (Source) Anatomical Collection Method Collection Time Re ceived Time Location / / Volume Laterality 12/06/2011 4:03 PM EDT Rebecca Newman MD PATHOLOGY/CYTOLOGY ORDERABL ES Performing Organization Address City/State/[place] [address] [facility] Specimen to Pathology (NON-OR) (12/06/2011 2:13 PM EDT) Specimen Anatomical Collection Method Collection Time Receive d Time (Source) Location / / Volume Laterality AP Specimen 12/06/2011 2:13 PM 2 2:14 EDT PM EDT Narrative CERNER MILLENNIUM - 12/06/2011 2:14 PM E DT Specimen requisition ordered. ??Separate Pathology report to follow Lamar Vides MD PATHOLOGY/CYTOLOGY ORDERABLE S Performing Organization Address City/State/[place] [address] [facility]ERNER MILLENNI[facility] documented in this encounter Visit Diagnoses Diagnosis Skin lesion of face - Primary Unspecified disorder of skin and subcuta neous tissue Actinic keratosis documented in this encounter Care Teams Applications Packager Relationship Specialty Start Date End Date Rebecca Monsivais MD PCP - General 01/09/[address] [place] [address] [address] [place] [address] documented as of this encounter
--- OUTSIDE RECORDS SUMMARY | 2021-09-04 02:15 | XMS_ITS | Encounter Summary ---
:1950 [place] [address] Care Team Providers Name Role Phone Rebecca Monsivais MD Primary Care Provider Reason for Visit Reason Comments Basal Cell Carcinoma Encounter Details Date Type Department Care Team Description [facility]/21[facility] (basal cell Road carcinoma of skin) [address] [facility] (Primary Dx) [place] [address] [facility]-DER[facility]OLOGY [place], [place] [address] Social History Tobacco Use Types Packs/Day Years Used Date Former Smoker Sex Assigned at Date Recorded Not on file documented as of this encounter Last Filed Vital Signs Vital Sign Reading Time Taken Comments Blood Pressure 152/85 01/21/2012 9:11 AM EST Pulse 82 01/21/2012 9:11 AM EST Temperature - - Respiratory Rate 20 01/21/2012 9:11 AM EST Oxygen Saturation - - Inhaled Oxygen Concentration - - Weight 59 kg (130 lb) 01/21/2012 9:11 AM EST Height 157.5 cm (5' 2) 01/21/2012 9:11 AM EST Body Mass Index 23.78 01/21/2012 9:11 AM EST documented in this encounter Progress Notes Rg Mon MD - 01/21/2012 2:43 PM EST Operative Report Patient name: Genna Patel : 1950 Date: 01/21/2012 Staff Surgeon: Rg Mon MD, PhD Packaging Designer I: Stephanie Lamb, Hawa Landeros, Iraida Scott Patient Support Assistant: Katie Kerns Pre-operative diagnosis: Basal cell carcinoma Post-operative diagnosis: Basal cell carcinoma Location: Left paranasal Procedure: Mohs micrographic surgery Indication for Mohs micrographic surgery: Critical anatomic location Stages: 2 Final defect size: 1.8 x 1.3 cm Stage I The nature and purpose of the procedure, associated risks, possible consequences and complications,and alternative forms of treatment were explained in detail. Informed consent and permission to takephotographs were obtained. The site was confirmed with the patient/authorized off premise service representative/referring physician and a pre-operative time-out was conducted with no unresolved discrepancies noted. Localanesthesia was obtained with 1% lidocaine with 1:100,000 epinephrine. The surgical site was prepped and draped in the usual sterile manner. Clinically apparent tumor was removed by excision with clinical margins and sent for step sectioning. With all visible gross tumor completely excised, the borders of the tumor were excised as a complete layer 2-3mm in thickness. Hemostasis was achieved by electrocoagulation. The excised tissue was oriented and divided into 2 sections, chromacoded, and submitted for frozen sections. The patient tolerated the procedure well and without complications. On microscopic evaluation of the frozen sections, residual tumor was identified on section 1. Stage II The surgical site was re-anesthetized with 1% lidocaine with 1:100,000 epinephrine, re-prepped and redraped in a sterile manner. The residual tumor was re-excised as a complete layer 2-3mm in thickness. Hemostasis was achieved with electrocoagulation. The tissue was oriented and divided into 1 sections, chromacoded, and submitted for frozen sections. The patient tolerated the procedure well and without complications. On microscopic evaluation of the frozen sections, no residual tumor was identified on the deep or outer border of the sections. The final size of the defect after complete tumor removal was 1.8 x 1.3 cm, extending to fat on the left cheek and muscle on the left nose. Rg Mon MD, PhD Repair Operative Report Patient name: Genna Patel : 1950 Date: 01/21/2012 Staff Surgeon: Rg Mon MD, PhD Packaging Designer I: Khushbu Torres Patient Support Assistant: Katie Kerns Clinical Diagnosis: 0.8 x 1.3 cm surgical defect secondary to Mohs microscopically controlled excision of basal cell carcinoma Location: Left cheek Procedure: Complex linear closure of Mohs defect Due to the size and location of the defect resulting from the complete removal of the tumor, the postoperative risk of hemorrhage, infection, and the possibility of serious deformity from scarring, and in order to restore proper function and prevent loss of function, the defect on the left cheek was closed in the following manner. The nature and purpose of the procedure, associated risks, possible consequences, complications andalternative methods of treatment were explained to the patient in detail. An informed consent was obtained. The operative site was anesthetized with 1% lidocaine with 1:100,000 epinephrine. The site was prepped and draped in the usual sterile manner. The edges of the defect were widely undermined at the dermal subcutaneous layer in all directions. The edges could then be approximated without excess tension. Hemostasis was achieved with electrocoagulation. Redundant adjacent tissue was removed as needed. The deep tissues were apposed and sutured with 5-0 Monocryl sutures and the epidermal edges wereapproximated with 5-0 Prolene sutures. The resulting complex linear closure measured 5.0 cm. Rg Mon MD, PhD Repair Report Patient name: Genna Patel : 1950 Date: 01/21/2012 Staff Surgeon: Rg Mon MD, PhD Packaging Designer I: Hawa Torres Janet Davis Clinical Diagnosis: 0.9 x 1.3 cm skin and soft tissue defect status post Mohs excision of basal cellcarcinoma. Location: Left nose Procedure: Full thickness skin graft for repair of Mohs defect Donor site: Inferior Pete's triangle from the left cheek Due to the size and location of the defect resulting from the complete removal of the tumor, the postoperative risk of hemorrhage, infection, and the possibility of serious deformity from scarring, and in order to restore proper function and prevent loss of function, the defect on the nose was closed. The nature and purpose of the procedure, associated risks, possible consequences, complications andalternative methods of treatment were explained to the patient in detail. An informed consent was obtained. Local anesthesia was achieved with 1% lidocaine with 1:100,000 epinephrine at both the site of the defect and the donor site. The patient was prepped and draped at both sites in the usual sterile manner. The Pete's triangle was trimmed to fit the defect. The graft was defatted and placed uponthe defect. The tissue was secured with the placement of several bolster sutures of 4-0 Silk sutures. The graft was then trimmed to match the contour of the defect and sutured to the edges of the defect using 5-0 Chromic suture without causing tenting or tension on the graft. The final graft dimensions were 0.9 x 1.3 cm. The recipient site was cleaned and a white petrolatum ointment applied. A bolster dressing consisting of Xeroform gauze was secured with the bolster sutures tied over the dressing. The left cheek was cleaned and a white petrolatum ointment applied. A Xeroform gauze was placed over the incision. Additional gauze dressing was placed over this and secured with tape. The patient was discharged in good condition.The patient tolerated the procedure well and without complications and was given both verbaland written instructions on post-operative wound care. Follow-up for suture removal was scheduled for one week. The patient was discharged in good condition. Rg Mon MD, PhD documented in this encounter Plan of Treatment Upcoming Encounters Date Type Specialty Care Team Description 12/24/2021 Office Visit Dermatology Aryan Chris MD [address] [facility] DERMATOLOGY [place], [place] [address] (Wo rk) documented as of this encounter Visit Diagnoses Diagnosis BCC (basal cell carcinoma of skin) - [facility] Basal cell carcinoma of skin, site unspe cified documented in this encounter Care Teams Equipment Installer Relationship Specialty Start Date End Date Rebecca Monsivais MD PCP - General 01/09/10 [facility] [address] [place] [address] documented as of this encounter
--- OUTSIDE RECORDS SUMMARY | 2021-09-04 02:15 | XMS_ITS | Encounter Summary ---
:1950 [place] [address] Care Team Providers Name Role Phone Rebecca Monsivais MD Primary Care Provider Reason for Visit Reason Comments Annual Exam Encounter Details Date Type Department Care Team Description 12/22/2020 Office Visit Dermatology at [facility] (stephani orrheic keratosis); [place] [employer] History of basal cell carcinoma; [address] J Luis Paul DERMATOLOGY [place], [place] [id number] [phone] Social History Tobacco Use Types Packs/Day Years Used Date Former Smoker Smokeless Tobacco: Never Used Alcohol Use Standard Drinks/Week Comments No 0 (1 standard drink = 0.6 oz pure alcoho l) Sex Assigned at Date Recorded Not on file documented as of this encounter Progress Notes Aryan Chris MD - 12/22/2020 10:00 AM EDT Problem: 1. ??New skin lesions of concern 2. ??History of multiple nonmelanoma cutaneous malignancies 3. ??History BCC right nasal bridge August 2005 test post shave C&D 4. ??History of Mohs surgery left nasal sidewall [address] Schmid 5. ??History of Mohs surgery BCCA frontal parietal scalp September [address] Anthony 6. History of BCCa of left cutaneous lip November 2018 7. History of rosacea Genna follows up and is now 70. She has been doing well. She has noted a new lesion on the left medial cheek. Physical examination reveals a pleasant 70-year-old woman who has numerous seborrheic keratoses on her back within her scalp and on her arms and torso. She has a new seborrheic keratosis developing on the left medial cheek which is the site that she wants me to look at today. Otherwise careful examination of the head and the neck the chest the back the hands the arms deforms the thighs and the calvesis benign. Her rosacea continues to be a problem with marked erythema of the nose and malar cheeks. Assessment plan: History of multiple nonmelanoma cutaneous malignancies 1. Patient reassured about her benign examination today 2. No evidence of recurrence of prior treatment sites 3. Return to clinic in another year for repeat check. Rosacea facial 1. CPAP mask is irritant as is Covid mask 2. Prescription for metronidazole 0.75% cream not covered by her insurance, she had to pay for [id number] last time. She has been applying it very sparingly 3. Discussed the [employer] website and how she can receive this medicine at a far better hassan using it. Seborrheic keratoses 1. Patient reassured about seborrheic keratoses CC: Rebecca Desouza MD documented in this encounter Plan of Treatment Upcoming Encounters Date Type Specialty Care Team Description 12/24/2021 Office Visit Dermatology Aryan Chris MD [address] [facility] DERMATOLOGY [place], [place] [address] (Wo rk) documented as of this encounter Visit Diagnoses Diagnosis SK (seborrheic keratosis) Other seborrheic keratosis History of basal cell carcinoma Personal history of other malignant neop lasm of skin Rosacea documented in this encounter Care Teams Debrander Relationship Specialty Start Date End Date Rebecca Monsivais MD PCP - General 01/09/[address] [place] [address] [address] [place] [address] documented as of this encounter
--- OUTSIDE RECORDS SUMMARY | 2021-09-04 02:15 | XMS_ITS | Encounter Summary ---
:1950 Author Organization [facility] [place] [address] Care Team Providers Name Role Phone Rebecca Monsivais MD Primary Care Provider Reason for Visit Reason Comments Follow-up Skin Check Encounter Details Date Type Department Care Team Description 07/29/2014 [facility] Seborrheic keratosis, inflamed; Road [facility] History of basal cell carcin kenia; [address] Skin [place] for [place] [address] [facility] [phone] RD-DERMATOLOGY [place] [id number] (Wo rk) Social History Tobacco Use Types Packs/Day Years Used Date Former Smoker Sex Assigned at Date Recorded Not on file documented as of this encounter Patient Instructions Patient InstructionsJalyn Alva LPN - 07/29/2014 2:14 PM EDT Seborrheic Keratoses You have been diagnosed today with Seborrheic Keratosis (SK). These are benign (non-cancerous) growths that can occur almost anywhere on the skin. They are very common. SKs can often be mistaken for a wart or a mole. SKs are usually brown, but can range in color from light pink to black. They can measure anywhere from a fraction of an inch to larger than a half-dollar. One distinguishing feature of an SK is that they usually have a waxy, dcmxw-un-cjl-skin appearance. They have been referred to as barnacles of life, because they resemble the barnacles stuck to a ship. Although it is unclear what causes an SK to develop, it is certain that they are not contagious. SKsdo have the tendency to run in families. Unless irritated, SKs do not require treatment. However, do seek an appointment if an SK starts to grow rapidly, turns black, or bleeds. You were treated today with Liquid Nitrogen. This is the most common treatment for an irritated SK. Liquid nitrogen is extremely cold, and freezes the surface of the skin, causing the lesion to flake off. Treatment with liquid nitrogen can be uncomfortable, but discomfort should subside after a coupleof hours. The area treated will look red and irritated, and it may blister up or turn dark, then fall off. This is normal! You do not need and special treatment for the area, but you may find cold compresses and/or a light application of Vaseline soothing. For best results, do not rub or pick at the healing lesion. Expected healing time is 3-4 weeks. Please contact the clinic at [phone] if the lesion has not fully resolved after 6 weeks. documented in this encounter Progress Notes Jason Cintron MD - 07/29/2014 4:28 PM EDT I was the supervising physician working with dermatology resident Dr. Fernandez in the dermatology clinic during this patient visit. The level of Resident supervision for this patient visit was indirect supervision with direct supervision immediately available. (definition: [facility] GME Policy Statement on [facility] Medical Education, Supervision of Graduate Medical Trainees) I was immediately available to Dr. Fernandez for questions and discussion regarding this visit. I have reviewed her encounter note detailsand level of service. Jason Cintron MD Staff Physician Moriah Fernandez MD - 07/29/2014 1:36 PM EDT DERMATOLOGY - ESTABLISHED PATIENT NOTE Date of service: 07/29/2014 Genna Patel : 1950 Dermatology Resident Note: Moriah Fernandez MD Chief Problem: skin cancer screening Chief Complaint Patient presents with ??? Follow-up ??? Skin Check Ms. Genna Patel is a 63 y.o. female , established to me, last seen 07/28/2013. HPI: Ms. Patel presents for a full skin exam. She has numerous spots of minor concern. She has an itchyspot on her back, that she noticed bled one night. She has noticed increased redness on her central face. Otherwise she is well today. Past Skin History: BCC - 11/2011 -MOH's left paranasal, several in the past- scalp,nose Medical History: There is no problem list on file for this patient. Medications: Current Outpatient Prescriptions Medication Sig Dispense Refill ??? mupirocin (BACTROBAN) 2 % ointment Apply topically 2 times daily. 22 g 0 No current facility-administered medications for this visit. Allergies: No Known Allergies Family History: No family h/o melanoma, or Non Melanoma Skin Cancer No family h/o atopy, psoriasis, or other skin disease Review of Systems: General: Feels well Skin: As per HPI; no other skin concerns Examination: Constitutional: Patient was alert, well-appearing and in no noticeable distress. Skin: A full skin examination was performed. This includes the head, neck, face and scalp including behind the ears. The chest, abdomen, back, and axillae, as well as the arms, hands, palms, fingers. Legs, feet, toes and soles were also examined. Buttocks and breasts were also examined with patient consent. Genitalia were not examined. Specific skin findings: 1.central face with diffuse erythema and telangiectasias 2. Left back - Brown papules with waxy, stuck-on appearance and surrounding patch of erythema. Milia-like cysts, comedone-like openings and/or fissuring on dermoscopy. 3. Multiple atrophic scars, NER Diagnosis/Assessment/Treatment Plan: 1. Rosacea, no pustular component, telangiectasias/central erythema Discussed the etiology and treatment options. Discussed laser and green makeup for reducing redness. Patient will consider PDL in the future, quoted $350 for full face treatment. Reviewed procedure andexpected outcome. Discussed sunprotection and avoidance of triggers. 2. Inflamed seborrheic keratosis (ISK)- - Discussed diagnosis, reassured patient of benign nature. Recommend treating with LN, as lesion is inflamed; patient agreed to this plan. ?? Procedure(s): Destruction of lesion(s) with cryotherapy. Number: 1 Location: as above ?? Discussed procedure and expectations including risks (including risk of hypopigmentation) and benefits. Verbal consent obtained. Frozen with LN2, 15-30 second thaw time, TWICE. There were no complications; the patient tolerated the procedure well. Post-procedure expectations and wound care were reviewed. 3. Hx BCCs ?? Well-healed; no evidence of recurrence. Will continue to monitor clinically Discussed importance of sun protection, sun avoidance strategies, protective clothing, and sunscreen. Recommend a hat. Follow-up: RTC in 1 year. Instructed to call for questions or concerns. Moriah Fernandez MD Resident in Dermatology [facility] staff machine heel seat laster: Che Cintron MD Section of Dermatology [facility] documented in this encounter Plan of Treatment Upcoming Encounters Date Type Specialty Care Team Description 12/24/2021 Office Visit Dermatology Aryan Chris MD [address] [facility] DERMATOLOGY [place], [place] [address] (Wo rk) documented as of this encounter Visit Diagnoses Diagnosis Seborrheic keratosis, inflamed Inflamed seborrheic keratosis History of basal cell carcinoma Personal history of other malignant neop lasm of skin Skin exam for malignant neoplasm Screening for malignant neoplasm of the skin documented in this encounter Care Teams Social Worker Assistant Relationship Specialty Start Date End Date Rebecca Monsivais MD PCP - General 01/09/[address] [place] [address] documented as of this encounter
--- OUTSIDE RECORDS SUMMARY | 2021-09-04 02:15 | XMS_ITS | Clinical Summary ---
:1950 Author Organization [facility] [place] [address] Care Team Providers Name Role Phone Rebecca Monsivais MD Primary Care Provider Allergies Active Allergy Reactions Severity Noted Date Comments Lisinopril Palpitations 07/07/2017 Medications Medication Sig Dispensed Refills Start Date End Date Status hydrochlorothiazide TAKE ONE 0 10/18/2015 Active (HYDRODIURIL) 25 mg Tablet TABLET BY MOUTH EVERY DAY loratadine (CLARITIN) 10 mg Take 10 mg by 0 Active Tablet mouth daily. omeprazole (PRILOSEC) 20 mg Take 20 mg by 0 Active Capsule, Delayed mouth daily. Release(E.C.) metroNIDAZOLE (METROCREAM) Apply to face 45 g 5 0 Active 0.75 % Cream twice daily as needed Active Problems Problem Noted Date Chest pain 10/07/2015 History of basal cell carcinoma 07/29/2014 Seborrheic keratosis, inflamed 07/29/2014 Family History Medical History Relation Comments Heart Disease Father Heart Disease Mother Relation Status Comments Father Mother Social History Tobacco Use Types Packs/Day Years Used Date Former Smoker Smokeless Tobacco: Never Used Alcohol Use Standard Drinks/Week Comments No 0 (1 standard drink = 0.6 oz pure alcoho l) Sex Assigned at Date Recorded Not on file Last Filed Vital Signs Vital Sign Reading Time Taken Comments Blood Pressure 148/85 09/30/2017 8:06 AM EDT Pulse 74 09/30/2017 8:06 AM EDT Temperature 36.7 ??C (98.1 ??F) 10/08/2015 3:35 PM EDT Respiratory Rate 20 10/08/2015 3:35 PM EDT Oxygen Saturation 95% 10/08/2015 3:35 PM EDT Inhaled Oxygen Concentration - - Weight 59.1 kg (130 lb 4.7 oz) 10/07/2015 4:30 PM EDT Height 157.5 cm (5' 2) 10/07/2015 4:30 PM EDT Body Mass Index 23.83 10/07/2015 4:30 PM EDT Plan of Treatment Upcoming Encounters Date Type Specialty Care Team Description 12/24/2021 Office Visit Dermatology Aryan Chris MD [address] [facility] DERMATOLOGY [place], [place] [address] (Wo rk) Health Maintenance Due Date Last Done Comments Covid-19 Vaccine (#1) 1954 Hepatitis C Screening 08/01/1967 Tdap adult 1968 Tetanus vaccine 1968 Breast Cancer Share Decision Needed 1989 Colonoscopy 1994 Breast Cancer screening 08/01/1999 Zoster vaccine (1 of 2) 08/01/1999 Advance Directive 2004 Bone Density Scan 2014 Pneumoccocal Vaccine: 65+ (1 - PCV) 2014 Influenza (Flu) vaccine (1 of 1 - Influenza standard 10/18/2021 series) Insurance Payer Benefit Plan / Subscriber ID Effective Phone Address T ype Group Dates MEDICARE MEDICARE PART [id number] 2019-Pres [phone] [facility] [phone] [employer] BCBS [id number] 2019-Pres [address] [place] GUZMÁN [id number] Advance Directives Latest Code Status on File Code Status Date Activated Date Inactivated Comments Full Code 10/07/2015 4:49 PM 10/08/2015 5:38 PM Does patient have capacity to make decision: Yes Care Teams Napper Fixer Relationship Specialty Start Date End Date Rebecca Monsivais MD PCP - General 01/09/[address] [place] [address]
--- OUTSIDE RECORDS SUMMARY | 2021-09-04 02:15 | XMS_ITS | Encounter Summary ---
:1950 Author Organization [facility] [place] [address] Care Team Providers Name Role Phone Rebecca Monsivais MD Primary Care Provider Reason for Visit Reason Comments Basal Cell Carcinoma Encounter Details Date Type Department Care Team Description 01/08/2012 Office Visit Dermatology at [facility] Rg Mon, BCC (basal cell Road MD carcinoma) (Primary [address] [facility] Dx) [place] [address] [facility]-DERMATOLOGY [place], [place] [address] Social History Tobacco Use Types Packs/Day Years Used Date Former Smoker Sex Assigned at Date Recorded Not on file documented as of this encounter Last Filed Vital Signs Vital Sign Reading Time Taken Comments Blood Pressure 146/84 01/08/2012 2:04 PM EST Pulse 98 01/08/2012 2:04 PM EST Temperature - - Respiratory Rate 20 01/08/2012 2:04 PM EST Oxygen Saturation - - Inhaled Oxygen Concentration - - Weight 59 kg (130 lb) 01/08/2012 2:04 PM EST Height 157.5 cm (5' 2) 01/08/2012 2:04 PM EST Body Mass Index 23.78 01/08/2012 2:04 PM EST documented in this encounter Progress Notes Rg Mon MD - 01/08/2012 2:13 PM EST Chief Complaint: ____BCC History of Present Illness: Referring Physician: Tumor type BCC Location of Skin Cancer: ___left paranasal Duration of Presence: __1 yr Previous Treatment [x] No [ ] Yes When: Symptoms: [ ] pain [ ] bleeding [ ] crusting [ ] other ___none Previous History of Skin Cancer: [ ] none [x] list ____BCCs Family History of Skin Cancer [x] none [ ] melanoma [ ] basal cell [ ] squamous cell [ ] other Review of Systems: Check all that apply regarding other health problems Skin Hematological Eyes/Ears/Nose/Throat [ ] normal [x] normal [x] normal [ ] thick scars/keloids [ ] anemia [ ] glaucoma [ ] poor wound healing [ ] bleeding problems [ ] hearing aid [x] herpes infection/cold sores lip [ ] enlarged lymph nodes [ ] cosmetic surgery [ ] other [ ] other [ ] other Cardiovascular Respiratory GI/Renal [ ] normal [x] normal [x] normal [ ] angina (chest pain) [ ] emphysema [ ] colitis [ ] heart attack (Date____) [ ] COPD [ ] stomach ulcer [ ] artificial heart valve [ ] asthma [ ] kidney disease [ ] pacemaker/defib [ ] other [ ] other [x] HTN New diagnosis, watching [ ] other Musculoskeletal Endocrine Infections [x] normal [x] normal [x] none [ ] arthritis [ ] thyroid disease [ ] HIV/AIDS [ ] artificial joint (Year ____) [ ] diabetes [ ] hepatitis (type ) [ ] other [ ] other [ ] tuberculosis [ ] other Neurological Psychiatric [x] normal [x] normal [ ] stroke [ ] anxiety [ ] seizures [ ] depression [ ] mental status change [ ] other [ ] other Do you take antibiotics prior to having a dental or any other procedure [x] No [ ] Yes Medical Problems (not listed above): Past Medical History Diagnosis Date ??? Basal cell carcinoma Surgical history (not listed above): __hysterectomy Physical Limitations: _none Do You Take [ ] aspirin [ ] Plavix [ ] Coumadin [ ] Other blood thinners/anti- platelet medications __none List Other Medications (prescription and over the counter including vitamins): No current outpatient prescriptions on file prior to encounter. 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 [x] No [ ] Yes Are you nursing? [x] No [ ] Yes Physical Exam Blood pressure 146/84, pulse 98, resp. rate 20, height 157.5 cm (5' 2), weight 58.968 kg (130 lb). General: Pleasant, well-appearing, in no acute distress. Skin:Limited examination of face reveals 6 mm erythematous papule located on the left paranasal. Assessment and Plan 1. Basal Cell Carcinoma - left paranasal Reviewed treament options including wide local excision, Mohs micrographic surgery, electrodesiccation and curettage, and radiation therapy. Reviewed reconstruction options including second intention healing, linear repair, local flap, full thickness graft, and repair by Plastic Surgery or any other physician of the patient's choosing. The patient has elected to proceed with Mohs surgery. The patient has elected to have the post-Mohs defect repaired by us, and understands and acknowledges the risk of scarring. documented in this encounter Miscellaneous Notes Miscellaneous - Provider, Scanning - 02/19/2012 7:53 AM EST Miscellaneous - Provider, Scanning - 02/17/2012 2:56 PM EST documented in this encounter Plan of Treatment Upcoming Encounters Date Type Specialty Care Team Description 12/24/2021 Office Visit Dermatology Aryan Chris MD [address] [place] [address] DERMATOLOGY [place], [place] [address] (Wo rk) documented as of this encounter Visit Diagnoses Diagnosis BCC (basal cell carcinoma) - Primary Basal cell carcinoma of skin, site unspe cified documented in this encounter Care Teams Machine Adjuster Leader Case Trim Relationship Specialty Start Date End Date Rebecca Monsivais MD PCP - General 01/09/[address] [place] [address] documented as of this encounter
--- OUTSIDE RECORDS SUMMARY | 2021-09-04 02:15 | XMS_ITS | Encounter Summary ---
:1950 Author Organization [facility] [place] [address] Care Team Providers Name Role Phone Rebecca Monsivais MD Primary Care Provider Reason for Visit Reason Onset Date Comments Pre Procedure Call 09/24/2017 Encounter Details Date Type Department Care Team Description 09/24/2017 Telephone Dermatology at [facility] Stephanie Lamb, Pre Procedure Call [address] [employer] [place] [address] Social History Tobacco Use Types Packs/Day Years Used Date Former Smoker Alcohol Use Standard Drinks/Week Comments No 0 (1 standard drink = 0.6 oz pure alcoho l) Sex Assigned at Date Recorded Not on file documented as of this encounter Miscellaneous Notes Telephone Encounter - Stephanie Lamb LPN - 09/24/2017 4:29 PM EDT Unable to speak with Genna for her pre-op instructions prior to her Mohs surgery with Dr. Klein. Stephanie Lamb LPN documented in this encounter Plan of Treatment Upcoming Encounters Date Type Specialty Care Team Description 12/24/2021 Office Visit Dermatology Aryan Chris MD [address] [place] [address] RD DERMATOLOGY [place], [place] [address] [facility] [phone] (Wo rk) documented as of this encounter Visit Diagnoses Not on filedocumented in this encounter Care Teams Mash Grinder Relationship Specialty Start Date End Date Rebecca Monsivais MD PCP - General 01/09/[address] [place] [address] documented as of this encounter
--- OUTSIDE RECORDS SUMMARY | 2021-09-04 02:15 | XMS_ITS | Encounter Summary ---
:1950 [place] [address] Care Team Providers Name Role Phone Rebecca Monsivais MD Primary Care Provider Reason for Visit Auth/Cert Specialty Diagnoses / Procedures Referred By Contact Refer red To Contact Diagnoses Chest pain Procedures EMERGENCY OBSVO Referral ID Status Reason Start Date Expiration Date Visits Requ ested Visits Authorized [id number] 1 1 Encounter Details Date Type Department Care Team Description 10/07/2015 - Emergency Emergency Department Aleida Tsai Che st pain, unspecified type (Primary Dx); 10/08/2015 Jessica Peres MD Other chest pain; [facility] Shortness of breath; [facility] DR Elevated white blood cell count, unspeci fied; [facility] EMERGENCY MEDICINE Hyperlipidemia, unspecified hyperlipidem ia type; [place] [id number] Essential hypertension, hypertension wit h unspecified goal; [id number] Personal history of digestiv e disease; Personal history of tobacco use, present ing hazards to health Social History Tobacco Use Types Packs/Day Years Used Date Former Smoker Alcohol Use Standard Drinks/Week Comments No 0 (1 standard drink = 0.6 oz pure alcoho l) Sex Assigned at Date Recorded Not on file documented as of this encounter Last Filed Vital Signs Vital Sign Reading Time Taken Comments Blood Pressure 127/78 10/08/2015 3:35 PM EDT Pulse 87 10/08/2015 3:35 PM EDT Temperature 36.7 ??C (98.1 ??F) 10/08/2015 3:35 PM EDT Respiratory Rate 20 10/08/2015 3:35 PM EDT Oxygen Saturation 95% 10/08/2015 3:35 PM EDT Inhaled Oxygen Concentration - - Weight 59.1 kg (130 lb 4.7 oz) 10/07/2015 4:30 PM EDT Height 157.5 cm (5' 2) 10/07/2015 4:30 PM EDT Body Mass Index 23.83 10/07/2015 4:30 PM EDT documented in this encounter Discharge Instructions Discharge InstructionsSimona Montana, INJECTION MOLDING MACHINE SETTER - 10/08/2015 3:22 PM EDT Images from the original note were not included. [facility] Chest Pain: After Your Visit Your Care Instructions There are many things that can cause chest pain. Some are not serious and will get better on their own in a few days. But some kinds of chest pain need more testing and treatment. Your doctor may have recommended a follow-up visit in the next 8 to 12 hours. If you are not getting better, you may need more tests or treatment. Even though your doctor has released you, you still need to watch for any problems. The doctor carefully checked you, but sometimes problems can develop later. If you have new symptoms or if your symptoms do not get better, get medical care right away. If you have worse or different chest pain or pressure that lasts more than 5 minutes or you passed out (lost consciousness), call 911 or seek other emergency help right away. A medical visit is only one step in your treatment. Even if you feel better, you still need to do what your doctor recommends, such as going to all suggested follow-up appointments and taking medicinesexactly as directed. This will help you recover and help prevent future problems. How can you care for yourself at home? ?? Rest until you feel better. ?? Take your medicine exactly as prescribed. Call your doctor if you think you are having a problem with your medicine. ?? Do not drive after taking a prescription pain medicine. When should you call for help? Call 911 if: ?? You passed out (lost consciousness). ?? You have severe difficulty breathing. ?? You have symptoms of a heart attack. These may include: ?? Chest pain or pressure, or a strange feeling in your chest. ?? Sweating. ?? Shortness of breath. ?? Nausea or vomiting. ?? Pain, pressure, or a strange feeling in your back, neck, jaw, or upper belly or in one or both shoulders or arms. ?? Lightheadedness or sudden weakness. ?? A fast or irregular heartbeat. After you call 911, the dehydrogenation operator head may tell you to chew 1 adult-strength or 2 to 4 low-dose aspirin. Wait for an ambulance. Do not try to drive yourself. Call your doctor today if: ?? You have any trouble breathing. ?? Your chest pain gets worse. ?? You are dizzy or lightheaded, or you feel like you may faint. ?? You are not getting better as expected. ?? You are having new or different chest pain. Where can you learn more? Visit our health information library at [email or web address] You can also view health information on [employer], your personal patient account. Log in or sign up today. Enter A120 in the search box to learn more about Chest Pain: After Your Visit. ?? [id number] [employer] Care instructions adapted under license by [facility]. This care instruction is for use with your licensed healthcare professional. If you have questionsabout a medical condition or this instruction, always ask your healthcare professional. [employer] disclaims any warranty or liability for your use of this information. Content Version: 10.4.906871; Current as of: July 21, 2013 documented in this encounter Medications at Time of Discharge Medication Sig Dispensed Refills Start Date End Date mupirocin (BACTROBAN) 2 Apply topically 2 22 g 0 01/2707/07/2017 % ointmentIndications: times daily. BCC (basal cell carcinoma) documented as of this encounter ED Notes Simona Montana APRN - 10/08/2015 3:58 PM EDT Images from the original note were not included. CLINICAL DECISION UNIT - DISCHARGE SUMMARY Patient Name: Domingo Youngblood Patient Age: 65 y.o. Birthdate: 1950 Admit date: 10/07/2015 Discharge date and time: 10/08/2015 Attending Physician: Radha att. providers found Discharge Diagnoses: Chest pain History of Presentation (from ED Note): 65 y.o. female who presents to the Emergency Department with shortness of breath. Per family and patient patient is a very active individual with a past medical history significant for inflammatory bowel disease who is in her normal state of health until approximately 2 weeks ago when she developed an acute onset shortness of breath. She states that she was on a 30 mile bike ride and at approximately 20 miles she became very fatigued and very short of breath and unable to continue. Patient states that she has continued to be very short of breath with any exertion with an associated substernal chest pressure. She was seen at an outside hospital emergency department and per reporthad a negative workup and was scheduled for an outpatient stress test. Here in the emergency department patient presents because she is continued to become increasingly short of breath and increasinglyunable to perform the activities of daily living including severe shortness of breath while making the bed today. Some associated lightheadedness, no diaphoresis, no arm pain but occasional left fingertingling. Occasional nausea without vomiting. No long distance travel or recent surgery, no calf pain. ?? Patient reports chest pressure with exertion which has become more and more frequent. Currently resting denies shortness of breath, chest pain, palpitations, dizziness. States she just began taking a medication for hypertension, thinks this may be metoprolol. She has not taken this today. ?? Initial presentation concerning for suspected ACS although patient's initial workup in the ED has been unremarkable, she'll be observed overnight in the CDU with a treadmill stress test tomorrow morning. Initial and repeat troponin <0.03. Most recent EKG reveals sinus bradycardia (58bm) of which patient is asymptomatic. DDimer elevated, CTA negative for PE. Medically stable in ED and on transfer to CDU. Exam at Time of Discharge: BP 127/78 (Patient Position: Lying) Pulse 87 Temp 36.7 ??C (98.1 ??F) (Oral) Resp 20 Ht 157.5 cm (5'2) Wt 59.1 kg (130 lb 4.7 oz) SpO2 95% BMI 23.83 kg/m2 Constitutional: oriented to person, place, and time. Appears well-developed and well-nourished. No distress. Head: Normocephalic and atraumatic. Eyes: EOM are normal. Neck: Normal range of motion. Neck supple. No JVD present. No tracheal deviation present. Cardiovascular: Normal rate and regular rhythm. Exam reveals no gallop and no friction rub. No murmur heard. Pulmonary/Chest: Effort normal and breath sounds normal. No respiratory distress. No wheezes. No rales. Exhibits no tenderness. Abdominal: Soft. Exhibits no distension. There is no tenderness. There is no rebound and no guarding. Normal bowel sounds Musculoskeletal: Exhibits no edema or tenderness. Neurological: Alert and oriented to person, place, and time. Skin: Skin is warm and dry. No rash noted. Not diaphoretic. No erythema. No pallor. Emergency Department/Clinical Decision Unit Course: H & PE Monitor EKG Results for DOMINGO YOUNGBLOOD ( ) as of 10/08/2015 16:04 Ref. Range 10/07/2015 11:55 10/07/2015 13:47 10/07/2015 15:13 10/07/2015 18:05 10/07/2015 18:30 10/08/2015 05:45 WBC Latest Ref Range: 4.0 - 10.0 x10(3)/mcL 11.5 (H) RBC Latest Ref Range: 3.93 - 5.22 x10(6)/mcL 5.18 Hemoglobin Latest Ref Range: 11.2 - 15.7 gm/dL 14.8 Hematocrit Latest Ref Range: 34.0 - 45.0 % 43.2 MCV Latest Ref Range: 79.0 - 94.0 fL 83.4 MCH Latest Ref Range: 26.6 - 32.2 pg 28.6 MCHC Latest Ref Range: 32.0 - 36.5 gm/dL 34.3 RDWSD Latest Ref Range: 35.0 - 46.0 fL 38.4 RDWCV Latest Ref Range: 10.9 - 14.4 % 12.7 Platelets Latest Ref Range: 145 - 370 x10(3)/mcL 354 MPV Latest Ref Range: 9.0 - 12.0 fL 10.3 nRBC % Auto Latest Units: % 0.0 nRBC Abs Auto Latest Ref Range: 0.000 - 0.012 x10(3)/mcL 0.000 Neutr Abs (ANC) Latest Ref Range: 1.50 - 6.30 x10(3)/mcL 7.79 (H) Neutrophils % Latest Units: % 67.5 Immature Gran % Latest Units: % 0.30 Lymphocytes % Latest Units: % 25.6 Monocytes % Latest Units: % 5.0 Eosinophils % Latest Units: % 0.7 Basophils % Latest Units: % 0.9 Myra Gran Abs Latest Ref Range: 0.00 - 0.05 x10(3)/mcL 0.04 Lymphocytes Abs Latest Ref Range: 1.0 - 3.6 x10(3)/mcL 3.0 Monocyte Abs Latest Ref Range: 0.2 - 1.0 x10(3)/mcL 0.6 Eosinophils Abs Latest Ref Range: 0.0 - 0.5 x10(3)/mcL 0.1 Basophils Abs Latest Ref Range: 0.0 - 0.2 x10(3)/mcL 0.1 D-Dimer, Quant Latest Ref Range: 0 - 500 FEU ng/ml 575 (H) Sodium Latest Ref Range: 135 - 145 mmol/L 139 Potassium Latest Ref Range: 3.5 - 5.0 mmol/L 3.8 Chloride Latest Ref Range: 98 - 107 mmol/L 98 CO2 Latest Ref Range: 22 - 31 mmol/L 20 (L) Anion Gap Latest Ref Range: 5 - 15 mmol/L 21 (H) BUN Latest Ref Range: 8 - 18 mg/dL 18 Creatinine Latest Ref Range: 0.70 - 1.20 mg/dL 0.85 Estimated GFR Latest Ref Range: >=60 >60 Glucose Lvl Latest Ref Range: 65 - 199 mg/dL 109 Calcium Latest Ref Range: 8.5 - 10.5 mg/dL 10.5 Troponin-T Latest Ref Range: <=0.03 ng/mL <0.03 <0.03 CK, Total Latest Ref Range: 0 - 160 unit/L 59 Chol, Total Latest Ref Range: <=199 mg/dL 217 (H) Triglycerides Latest Ref Range: <=149 mg/dL 178 (H) HDL Latest Ref Range: >=40 mg/dL 44 LDL Cholesterol Latest Ref Range: <=99 mg/dL 137 (H) Chol/HDL Ratio Latest Units: ratio 4.9 CTA IMPRESSION 1. No acute pulmonary embolism identified. 2. No acute pulmonary process. Findings discussed with Dr. Tsai at 2:[address] Ramos Exercise stress echo CONCLUSION: This was a normal echocardiographic stress test. Summary of Important Studies and Lab Data: See above Pending Studies and Lab Data: Follow up with PCP Discharge Condition: good Discharge to: Home with Discharge Medications: Your Medications UNREVIEWED medications - Discuss With Your Provider Dose Details mupirocin 2 % Oint Commonly known as: BACTROBAN Apply topically 2 times daily. Quantity: 22 g Refills: 0 Updated Allergies/ADRs: No Known Allergies Future Appointments and Orders Future Appointments Provider Department Dept Phone 10/25/2015 10:30 AM Lamar Vides MD Dermatology at [facility] [phone] General Instructions [facility] Chest Pain: After Your Visit Your Care Instructions There are many things that can cause chest pain. Some are not serious and will get better on their own in a few days. But some kinds of chest pain need more testing and treatment. Your doctor may have recommended a follow-up visit in the next 8 to 12 hours. If you are not getting better, you may need more tests or treatment. Even though your doctor has released you, you still need to watch for any problems. The doctor carefully checked you, but sometimes problems can develop later. If you have new symptoms or if your symptoms do not get better, get medical care right away. If you have worse or different chest pain or pressure that lasts more than 5 minutes or you passed out (lost consciousness), call 911 or seek other emergency help right away. A medical visit is only one step in your treatment. Even if you feel better, you still need to do what your doctor recommends, such as going to all suggested follow-up appointments and taking medicinesexactly as directed. This will help you recover and help prevent future problems. How can you care for yourself at home? ?? Rest until you feel better. ?? Take your medicine exactly as prescribed. Call your doctor if you think you are having a problem with your medicine. ?? Do not drive after taking a prescription pain medicine. When should you call for help? Call 911 if: ?? You passed out (lost consciousness). ?? You have severe difficulty breathing. ?? You have symptoms of a heart attack. These may include: ?? Chest pain or pressure, or a strange feeling in your chest. ?? Sweating. ?? Shortness of breath. ?? Nausea or vomiting. ?? Pain, pressure, or a strange feeling in your back, neck, jaw, or upper belly or in one or both shoulders or arms. ?? Lightheadedness or sudden weakness. ?? A fast or irregular heartbeat. After you call 911, the dehydrogenation operator head may tell you to chew 1 adult-strength or 2 to 4 low-dose aspirin. Wait for an ambulance. Do not try to drive yourself. Call your doctor today if: ?? You have any trouble breathing. ?? Your chest pain gets worse. ?? You are dizzy or lightheaded, or you feel like you may faint. ?? You are not getting better as expected. ?? You are having new or different chest pain. Where can you learn more? Visit our health information library at [email or web address] You can also view health information on [employer], your personal patient account. Log in or sign up today. Enter A120 in the search box to learn more about Chest Pain: After Your Visit. ?? [id number] [employer]. Care instructions adapted under license by [facility]. This care instruction is for use with your licensed healthcare professional. If you have questionsabout a medical condition or this instruction, always ask your healthcare professional. [employer] disclaims any warranty or liability for your use of this information. Content Version: 104.994591; Current as of: July 21, [address] Rouse to see this patient today. For questions regarding this document or issues relating to this admission, please contact the Clinical Decision Unit through the [facility] Electronic Warfare [employer] . Simona Montana APRN 10/08/15 [id number] Selwyn Rouse MD - 10/08/2015 3:27 PM EDT CLINICAL DECISION UNIT - ED ATTENDING DAY OF DISCHARGE NOTE Reason for CDU Admission: Chest Pain Brief Clinical Summary: 65 y.o. female presented to ED with chest pain concerning for possible ACS. Initial evaluation in the ED did not reveal any objective evidence of cardiac ischemia or an alternative cause to explain the patient's pain. Subsequent course in the CDU also did not reveal any objective evidence of ischemia. Stress imaging was obtained and did not reveal evidence of ischemia. The patient is currently chest pain free with no new complaints. Discharge Vital Signs: BP 122/78 (BP Location (NBP): Left arm, Patient Position: Sitting) Pulse 100 Temp 36.7 ??C (98.1 ??F) (Oral) Resp 18 Ht 157.5 cm (5' 2) Wt 59.1 kg (130 lb 4.7 oz) SpO2 94% BMI 23.83 kg/m2 Medical Decision Making: Chest pain of unclear etiology. ACS has essentially been ruled out given negative serial troponin, non-ischemic serial ECGs and non- ischemic stress imaging. Other life threatening causes of chest pain were considered and felt to be unlikely. There have been no other active clinical issues identified. I have determined that the patient meets criteria for discharge at this time. The discharge plan was reviewed with the patient, they have had an opportunity to ask questions, and are in agreement with the plan. The patient was seen in conjunction with Simona Montana. Selwyn Rouse MD 10/08/15 [id number] Ethel Fitzgerald RN - 10/08/2015 3:[address] Rouse at bedside to discuss discharge plan Ethel Fitzgerald RN - 10/08/2015 1:57 PM EDT Resting, waiting..... Ethel Fitzgerald RN - 10/08/2015 12:33 PM EDT Has returned from stress test, I did good. No pain but I still got the shortness of breath Ethel Fitzgerald RN - 10/08/2015 11:11 AM EDT Off the floor for stress test via w/c with electromechanical technologist Ethel Fitzgerald RN - 10/08/2015 10:58 AM EDT Comfortable, visits with spouse, awaits stress test Ethel Fitzgerald RN - 10/08/2015 7:10 AM EDT Report received, care assumed Ethan Moore MD - 10/08/2015 7:06 AM EDT Patient Name: Domingo Youngblood Patient Age: 65 y.o. Birthdate: 1950 Admit date: 10/07/2015 Attending Physician: Aleida Tsai MD ED Course Comment By Time Report received: 65 yo woman with SOB awaiting stress testing Ethan Moore MD 10/07 0715 Ethan Moore MD 10/10/15 0855 Susie Romeo PA - 10/07/2015 7:35 PM EDT CLINICAL DECISION UNIT - ADMISSION NOTE Admit date: 10/07/2015 Attending Physician: Aleida Tsai MD Brief Summary of Patient Presentation: (from initial H&P) Domingo Youngblood is a 65 y.o. female who presents to the Emergency Department with shortness of breath. Per family and patient patient is a very active individual with a past medical history significant for inflammatory bowel disease who is in her normal state of health until approximately 2 weeks ago when she developed an acute onset shortness of breath. She states that she was on a 30 mile bike ride and at approximately 20 miles she became very fatigued and very short of breath and unable to continue. Patient states that she has continued to be very short of breath with any exertion with an associated substernal chest pressure. She was seen at an outside hospital emergency department and per reporthad a negative workup and was scheduled for an outpatient stress test. Here in the emergency department patient presents because she is continued to become increasingly short of breath and increasinglyunable to perform the activities of daily living including severe shortness of breath while making the bed today. Some associated lightheadedness, no diaphoresis, no arm pain but occasional left fingertingling. Occasional nausea without vomiting. No long distance travel or recent surgery, no calf pain. Patient reports chest pressure with exertion which has become more and more frequent. Currently resting denies shortness of breath, chest pain, palpitations, dizziness. States she just began taking a medication for hypertension, thinks this may be metoprolol. She has not taken this today. Initial presentation concerning for suspected ACS although patient's initial workup in the ED has been unremarkable, she'll be observed overnight in the CDU with a treadmill stress test tomorrow morning. Initial and repeat troponin <0.03. Most recent EKG reveals sinus bradycardia (58bm) of which patient is asymptomatic. DDimer elevated, CTA negative for PE. Medically stable in ED and on transfer to CDU. Patient Active Problem List Diagnosis Code ??? History of basal cell carcinoma Z85.828 ??? Seborrheic keratosis, inflamed L82.0 ??? Chest pain R07.9 No Known Allergies Past Medical History Diagnosis Date ??? Basal cell carcinoma ??? Hyperlipidemia ??? Hypertension Social History Social History ??? Marital status: Spouse name: N/A ??? Number of children: N/A ??? Years of education: N/A Occupational History ??? Not on file. Social History Main Topics ??? Smoking status: Former Smoker ??? Smokeless tobacco: Not on file ??? Alcohol use No ??? Drug use: No ??? Sexual activity: Not on file Other Topics Concern ??? Not on file Social History Narrative Family History Problem Relation Age of Onset ??? Heart Disease Mother ??? Heart Disease Father Focused Exam: BP 110/67 (Patient Position: Sitting) Pulse 66 Temp 36.7 ??C (98.1 ??F) (Oral) Resp 16 Ht 157.5 cm (5' 2) Wt 59.1 kg (130 lb 4.7 oz) SpO2 96% BMI 23.83 kg/m2 PHYSICAL EXAMINATION: GENERAL: WD, WN, WF, NAD, vitals are stable HEENT: NECK: Supple. No carotid bruit bilaterally. No lymphadenopathy or thyromegaly. No JVD. LUNGS: CTA bilaterally, no rhonchi, wheezes, crackles, stridor or rales. HEART: RRR, S1/S2 regular, No S3/S4, no murmur, rub or gallop CHEST: Non-tender ABDOMEN: Soft, NT, ND EXTREMITIES: peripheral pulses 2+ bilaterally, capillary refill <3 sec NEUROLOGIC: A+Ox3 SKIN: [place], warm, dry, no lesions, no edema Recent Results (from the past 72 hour(s)) EKG 12 Lead Result Value Ref Range Ventricular rate 60 BPM Atrial Rate 60 BPM P-R Interval 142 ms QRS Duration 76 ms Q-T Interval 432 ms QTC Calculated (Bezet) 432 ms Calculated P Willard 25 degrees Calculated R Willard 25 degrees Calculated T Willard 47 degrees INTERPRETATION Normal sinus rhythm Normal ECG No previous ECGs available Confirmed by MD Butler Douglas ([id number]) on 10/07/2015 2:40:37 PM Blue Tube HOLD Result Value Ref Range Blue Hold Sample in lab. Cardiac Enzymes Result Value Ref Range Troponin-T <0.03 <=0.03 ng/mL CK, Total 59 0 - 160 unit/L Basic Metabolic Panel (non-fasting) Result Value Ref Range Glucose Lvl 109 65 - 199 mg/dL BUN 18 8 - 18 mg/dL Creatinine 0.85 0.70 - 1.20 mg/dL Sodium 139 135 - 145 mmol/L Potassium 3.8 3.5 - 5.0 mmol/L Chloride 98 98 - 107 mmol/L CO2 20 (L) 22 - 31 mmol/L Anion Gap 21 (H) 5 - 15 mmol/L Calcium 10.5 8.5 - 10.5 mg/dL Estimated GFR >60 >=60 Hemogram Result Value Ref Range WBC 11.5 (H) 4.0 - 10.0 x10(3)/mcL RBC 5.18 3.93 - 5.22 x10(6)/mcL Hemoglobin 14.8 11.2 - 15.7 gm/dL Hematocrit 43.2 34.0 - 45.0 % MCV 83.4 79.0 - 94.0 fL MCH 28.6 26.6 - 32.2 pg MCHC 34.3 32.0 - 36.5 gm/dL Platelets 354 145 - 370 x10(3)/mcL RDWSD 38.4 35.0 - 46.0 fL RDWCV 12.7 10.9 - 14.4 % MPV 10.3 9.0 - 12.0 fL nRBC % Auto 0.0 % nRBC Abs Auto 0.000 0.000 - 0.012 x10(3)/mcL Differential, Automated Result Value Ref Range Neutrophils % 67.5 % Neutr Abs (ANC) 7.79 (H) 1.50 - 6.30 x10(3)/mcL Lymphocytes % 25.6 % Lymphocytes Abs 3.0 1.0 - 3.6 x10(3)/mcL Monocytes % 5.0 % Monocyte Abs 0.6 0.2 - 1.0 x10(3)/mcL Eosinophils % 0.7 % Eosinophils Abs 0.1 0.0 - 0.5 x10(3)/mcL Basophils % 0.9 % Basophils Abs 0.1 0.0 - 0.2 x10(3)/mcL Immature Gran % 0.30 % Myra Gran Abs 0.04 0.00 - 0.05 x10(3)/mcL D-Dimer, Quantitative Result Value Ref Range D-Dimer, Quant 575 (H) 0 - 500 FEU ng/ml EKG 12 Lead Result Value Ref Range Ventricular rate 60 BPM Atrial Rate 60 BPM P-R Interval 174 ms QRS Duration 84 ms Q-T Interval 424 ms QTC Calculated (Bezet) 424 ms Calculated P Willard 65 degrees Calculated R Willard 12 degrees Calculated T Willard 40 degrees INTERPRETATION Normal sinus rhythm Normal ECG When compared with ECG of 07-OCT-2015 11:47, No significant change was found EKG 12 Lead Result Value Ref Range Ventricular rate 58 BPM Atrial Rate 58 BPM P-R Interval 174 ms QRS Duration 82 ms Q-T Interval 420 ms QTC Calculated (Bezet) 412 ms Calculated P Willard 69 degrees Calculated R Willard 30 degrees Calculated T Willard 46 degrees INTERPRETATION Sinus bradycardia Otherwise normal ECG When compared with ECG of 07-OCT-2015 15:13, (unconfirmed) No significant change was found Troponin T Result Value Ref Range Troponin-T <0.03 <=0.03 ng/mL CTA Chest COMPARISON: None ?? FINDINGS: Pulmonary arteries: Normal caliber. No intraluminal filling defects. Other cardiovascular structures: Evaluation of the aorta is limited by timing of contrast, however, the thoracic aorta is normal in course and caliber without evidence of aneurysmal dilatation or dissection. Lungs and airways:? No focal consolidation. Minimal bibasilar atelectasis. There is a small amount of scarring/atelectasis in the anterior right upper lobe. A calcified 4 mm nodule is present in the right middle lobe (series 6, image 134), consistent with a granuloma. Pleura and pericardium: No pleural effusion. The heart is normal in size no pericardial effusion. Mediastinum and hilar structures: No mediastinal, hilar or axillary lymphadenopathy. Limited views of the upper abdomen: The visualized aspects of the upper abdomen are unremarkable. Skeletal structures: No lytic or sclerotic lesions. ?? IMPRESSION 1. No acute pulmonary embolism identified. 2. No acute pulmonary process. Review of ED Course: H&P Chart Review Labs EKG and troponin x2 CTA Chest CDU Protocol Used: Chest Pain Plan: Continuous cardiac monitoring Treadmill stress tomorrow Aspirin daily Fasting lipid in AM Hold metoprolol NPO after MN Susie Romeo PA 10/07/151939 Elsie Umanzor RN - 10/07/2015 4:20 PM EDT Transfer via w/c to CDU. Elsie Umanzor RN - 10/07/2015 4:14 PM EDT Report to Ethel BROWNLEE. Ethel Fitzgerald RN - 10/07/2015 4:00 PM EDT Report received from Elsie CENTENO RN Elsie Umanzor RN - 10/07/2015 1:[address] via stretcher. Too Cortez MD - 10/07/2015 1:03 PM EDT Domingo Youngblood is an 65 y.o. female who presents to the ED with: No chief complaint on file. I saw this patient 10/07/2015 at 1:03 PM HPI Domingo Youngblood is a 65 y.o. female who presents to the Emergency Department with shortness of breath. Per family and patient patient is a very active individual with a past medical history significant for inflammatory bowel disease who is in her normal state of health until approximately 2 weeks ago when she developed an acute onset shortness of breath. She states that she was on a 30 mile bike ride and at approximately 20 miles she became very fatigued and very short of breath and unable to continue. Patient states that she has continued to be very short of breath with any exertion with an associated substernal chest pressure. She was seen at an outside hospital emergency department and per reporthad a negative workup and was scheduled for an outpatient stress test. Here in the emergency department patient presents because she is continued to become increasingly short of breath and increasinglyunable to perform the activities of daily living including severe shortness of breath while making the bed today. Some associated lightheadedness, no diaphoresis, no arm pain but occasional left fingertingling. Occasional nausea without vomiting. No long distance travel or recent surgery, no calf pain. Review of Systems: Review of Systems Constitutional: Positive for activity change and fatigue. Negative for diaphoresis and fever. HENT: Negative for congestion, rhinorrhea and trouble swallowing. Eyes: Negative for visual disturbance. Respiratory: Positive for shortness of breath. Negative for cough and chest tightness. Cardiovascular: Positive for chest pain. Negative for palpitations. Gastrointestinal: Negative for abdominal distention, abdominal pain, constipation, diarrhea, nausea and vomiting. Genitourinary: Negative for dysuria. Musculoskeletal: Negative. Skin: Negative. Neurological: Negative for dizziness, speech difficulty and headaches. Psychiatric/Behavioral: Negative. Patient Vitals for the past 24 hrs: BP Temp Temp src Pulse Resp SpO2 Weight 10/07/15 1200 114/62 - - 55 17 99 % - 10/07/15 1155 112/83 36.7 ??C (98.1 ??F) Oral 55 17 99 % 60.3 kg (133 lb) 10/07/15 1150 112/83 - - - - 92 % - Physical Exam: Physical Exam Constitutional: She is oriented to person, place, and time. She appears well- developed and well-nourished. No distress. Patient is very pleasant and conversational and speaking in complete sentences although appears fatigued and weak. HENT: Head: Normocephalic and atraumatic. Right Ear: External ear normal. Left Ear: External ear normal. Mouth/Throat: Oropharynx is clear and moist. Eyes: Conjunctivae and EOM are normal. Pupils are equal, round, and reactive to light. Right eye exhibits no discharge. Left eye exhibits no discharge. Neck: Normal range of motion. Cardiovascular: Normal rate, regular rhythm, normal heart sounds and intact distal pulses. Exam reveals no gallop and no friction rub. No murmur heard. Pulmonary/Chest: Effort normal and breath sounds normal. No respiratory distress. She has no wheezes. She has no rales. She exhibits no tenderness. Abdominal: Soft. Bowel sounds are normal. She exhibits no distension. There is no tenderness. There is no rebound and no guarding. Musculoskeletal: Normal range of motion. Neurological: She is oriented to person, place, and time. No cranial nerve deficit. Skin: Skin is warm and dry. No rash noted. She is not diaphoretic. No erythema. Psychiatric: She has a normal mood and affect. Nursing note and vitals reviewed. ED Course: - Patient was evaluated and discussed with Dr. Tsai - Medications, allergies and past medical history reviewed Assessment and Plan: Assessment: 65 y.o. female with chest pressure and shortness of breath. Patient's story very concerning for possible ACS but negative troponin and EKG without evidence of new ischemia or arrhythmia at this time. Troponin negative. PE CT negative for PE today. No other identified cardiopulmonary etiology on exam or imaging. No anemia at this time. Slight leukocytosis of 11.5. Unstable angina of concern, plan for admission to CDU for stress echo as patient states she will beable to walk on the treadmill for several minutes. Patient and family amenable to this plan. Too Cortez MD Resident 10/07/15 1744 Associated attestation - Aleida Tsai MD - 10/07/2015 8:21 PM EDT ED ATTENDING ATTESTATION NOTE The patient was seen in conjunction with Dr. Cortez, the resident physician. I have independently performed the hansen portions of the history and physical exam. I have reviewed the nursing notes, vital signs, and all diagnostic studies personally including labs, imaging studies and EKGs. I have discussed the details of the case with the resident and agree with the assessment and plan as described in the resident note above unless noted otherwise below. Brief Summary: No significant past medical history of coronary artery disease. The patient presentedwith acute onset of poor exercise tolerance and shortness of breath which certainly seems exertionaland isn't associated with chest pressure. I think this is fairly high risk for unstable angina. I think it is unlikely that she has acute coronary syndrome now but it is possible that she had a OK 2 weeks ago and has cleared her troponin E anemia. She will stay overnight in the CDU and have a stress test in the morning and have her enzymes cycled overnight. documented in this encounter Miscellaneous Notes ED Triage - Elsie Umanzor RN - 10/07/2015 11:55 AM EDT Pt presents to ED7 w/ c/o sob exacerbated w/ exertion for about 10 days. Recently seen at [facility] for same c/o. Pt's daughter stated sob worsened when trying to make her bed today (pt is normally an active person and hikes w/ her daughter). Took a baby aspirin this am. Vss; a&ox3; w/p/d. EKG at bedside. CCM applied. Denies n/v, h/a and chills. States intermittently w/ chest pressure. Bed in low position, sr up x2, call guthrie in reach and family at bedside. documented in this encounter Plan of Treatment Upcoming Encounters Date Type Specialty Care Team Description 12/24/2021 Office Visit Dermatology Aryan Chris MD [address] [facility] [place], [place] [address] (Wo rk) Scheduled Orders Name Type Priority Associated Order Schedule Diagnoses Echocardiogram Stress Echocardiography STAT Chest pain, On e Time for 1 (Treadmill) unspecified type Occurrences starting 10/08/2015 unti l 10/08/2015 documented as of this encounter Procedures Procedure Name Priority Date/Time Associated Comments Diagnosis STRESS ECHOCARDIOGRAM W Routine 10/08/2015 12:03 Chest pain, Results for this CONTRAST LMTD SPEC PM EDT unspecified type proce dure are in DOPP,COLOR DOPP the results section. LIPID PANEL (REFLEX STAT 10/08/2015 5:45 Resul ts for this DIRECT LDL) AM EDT procedure are i n the results section. TROPONIN Timed 10/07/2015 6:30 Results for this PM EDT procedure are i n the results section. EKG 12-LEAD Routine 10/07/2015 6:05 Results for this PM EDT procedure are i n the results section. EKG 12-LEAD Timed 10/07/2015 3:13 Results for this PM EDT procedure are i n the results section. CT CHEST PULMONARY STAT 10/07/2015 1:47 Result s for this EMBOLISM W CONTRAST PM EDT procedur e are in the results section. HEMOGRAM STAT 10/07/2015 11:55 Results for this AM EDT procedure are i n the results section. DIFFERENTIAL, AUTOMATED STAT 10/07/2015 11:55 Results for this AM EDT procedure are i n the results section. D-DIMER, QUANTITATIVE STAT 10/07/2015 11:55 Re sults for this AM EDT procedure are i n the results section. BLUE TUBE HOLD STAT 10/07/2015 11:55 Results f or this AM EDT procedure are i n the results section. CARDIAC ENZYMES STAT 10/07/2015 11:55 Results for this ([facility]) AM EDT procedure are i n the results section. CBC (WITH DIFF) STAT 10/07/2015 11:55 AM EDT BASIC METABOLIC PANEL STAT 10/07/2015 11:55 Re sults for this (NON-FASTING) AM EDT procedure are in the results section. EKG 12-LEAD STAT 10/07/2015 11:47 Results for this AM EDT procedure are i n the results section. documented in this encounter Results STRESS ECHOCARDIOGRAM W CONTRAST LMTD SPEC DOPP,COLOR DOPP (10/08/2015 12:03 PM EDT) P athologist Signature EF 65 [employer] SYSTEM Specimen (Source) Anatomical Location Collection Method / Collectio n Time Received Time / Laterality Volume 10/08/2015 Narrative [facility] - 10/08/2015 2:50 PM EDT Procedure: ?Stress Echocardiogram Patient: ?RYLIE LANE P ? (Age): 1950(65y) Med Rec#: ? [id number] ?Sex: ?F ? [place] ? [facility] [place]Ht / Wt: ??157(cm)/59(kg) Pt. Loc: ?ED ?BSA: ?1.59 Study Date: ?? 10/08/2015 ?Pt. Type: Tape: ? Referring: Aleida Tsai Reading: Crescencio Robin ([id number]) Financial Services Consultant: Juan Campa Range Feeder: Antwan Tovar Diagnosis: *ICD-10-PCS Chest pain, unspecified (R0 7.9) CPT Codes: *Stress Echo (45638) *Color Doppler (95028) *Doppler LTD (77135) *ECG Interpretation (44133) *Optison (53063VR) Stage ? BP ?HR ? Rest ?134/88 ?96 ? Peak ?154/80 ?166 ? Recovery ?122/76 ?100 ? SUMMARY: 1. REST: ECG shows sinus rhythm with no pathologic Q waves and no ST depression. There is normal global left ventricular systolic function. Ejection fraction is estimated to be 65% . There are no left ventricular segmental wall motion abnormalities. 2. STRESS: The patient achieved a level of 11 METs.The patient did not express feelings of chest discomfort. Th e blood pressure response was normal. There were no significant ST seg ment changes. Echo imaging showed appropriate augmentation of all w all segments with exercise. 3. CONCLUSION: This was a normal echocar diographic stress test. Findings Rest: Study Quality: ? Adequate Left Ventricle: ? The left ventricul ar chamber size is normal. ?Left ventricular wall thickness is normal. ?There is normal global left ventri cular systolic function. ??Ejection fraction is estimated to be 65%. ?There are no left ventricular segm ental wall motion abnormalities. ?Left ventricular diastolic functio n is normal. Right Ventricle: ? The right ventric le is normal in size. ?Right ventricular global systolic function is probably normal. ?The estimated pulmonary artery sys tolic pressure is 22 mmHg. ?The estimated right atrial pressur e is 3 mmHg. Aortic Valve: ? The aortic valve is tricuspid. ?Systolic excursion of the aortic v alve is normal. ?There is no evidence of aortic paulina ve stenosis. ?There is no evidence of aortic reg urgitation. Mitral Valve: ? The mitral valve [place] flets appear normal. ?There is no evidence of mitral reg urgitation. Tricuspid Valve: ? The tricuspid paulina ve is probably normal. ?There is trace tricuspid regurgita tion present. Pericardium: ? The pericardium appea rs normal and there is no evidence of a pericardial effusion. Aorta: ? The aortic root is normal i n size. ?The ascending aorta is normal in s ize. Stress: ? EKG: normal sinus rhythm. ?The patient's oxygen saturation wa s 99%. ?The patient is taking a beta block er. ?The patient is taking a nitrate. ?The patient is on an NELSON inhibitor . ?The patient is taking aspirin. Misc: ? The cardiac valves appear st ructurally and functionally normal. ?Optison contrast (one 3 ml vial) w as used to enhance endocardial definition. Excess contrast was discarde d. ?Stress echo, limited spectral Dopp ler, color Doppler and ECG interpretation performed. Findings Peak: Predicted Values:The patient achieved a maximum heart rate of 166 which is 108% of the maximum predicted heart r ate (154 beats/min). ??The target heart rate was achieved. Stress: ? Patient followed a Crescencio p rotocol. ?The patient exercised into stage 4 . ?The total exercise duration was:9: 42 mins. ?The study was terminated because o f fatigue. ?The study was terminated because o f dyspnea.09/26 SOB at peak exercise. ?The patient did not express feelin gs of chest discomfort. ?The patient experienced shortness of breath. ?The blood pressure response was no rmal. ?Exercise capacity was excellent. ?The patient achieved a level of 11 METS. ?There were no arrhythmias. ?There were no significant ST segme nt changes. ?This was a negative electrocardiog raphic stress test for ischemia. ?This was a negative echocardiograp hic stress test. ?The patient's oxygen saturation wa s 99%. Chambers 2D ?Value ?Units (Range) ? IVSd (2D) ? 0.8 ?cm ? LVPWd (2D) ?0.6 ?cm ? IVS:LVPW ratio (2D) 1.3 ?ratio ? LVIDd (2D) ?4 ?cm ? LVIDs (2D) ?2.3 ?cm ? LVIDd (2D) index ?2.5 ?cm/m2 ? LVIDs (2D) index ?1.5 ?cm/m2 ? LV FS (2D) ?42 ? % ? EF Teichholz (2D) ?? 73 ? % ? Ao root diameter (2D2.9 ?cm (2.1 - 3.6) ? Ascending Ao ?3.1 ?cm (2 - 3.5) ? Volumes/Mass ?Value ?Units (Range) ? LV mass (2D) ?83.4 ? g ? LV mass (2D) index ??52.4 ? g/m2 ? Diastolic/Systolic Function ?Value ?Units (Range) ? MV E-wave Vmax ?0.8 ?m/sec ? MV deceleration aspf312 ?msec ? MV A-wave Vmax ?0.8 ?m/sec ? MV E:A ratio ?0.9 ?ratio ? LV septal e' Vmax ?? 0.1 ?m/sec ? LV lateral e' Vmax ??0.1 ?m/sec ? LV E:e' septal ratio9.9 ?ratio ? LV E:e' lateral rati6.6 ?ratio ? Tricuspid Valve ?Value ?Units (Range) ? TR Vmax ? 2.2 ?m/sec ? TR peak gradient ?19 ? mmHg ? RAP ? 3 ?mmHg ? RVSP ?22 ? mmHg ? Measurement Trending Name ? 10/08/2015 ? LVIDd (2D) ? 3. 97 LVIDs (2D) ? 2. 32 Wall Motion: Segment Name ?Rest ?Peak ? Base-Anteroseptal ?? Normal ?Normal ? Base-Anterior ? Normal ?Normal ? Base-Anterolateral ??Normal ?Normal ? Base-Posterolateral Normal ?Normal ? Base-Inferior ? Normal ?Normal ? Base-Inferoseptal ?? Normal ?Normal ? Mid-Anteroseptal ?Normal ?Normal ? Mid-Anterior ?Normal ?Normal ? Mid-Anterolateral ?? Normal ?Normal ? Mid-Posterolateral ??Normal ?Normal ? Mid-Inferior ?Normal ?Normal ? Mid-Inferoseptal ?Normal ?Normal ? [place]-Septal ? Normal ?Normal ? [place]-Anterior ? Normal ?Normal ? [place]-Lateral ?Normal ?Normal ? [place]-Inferior ? Normal ?Normal ? [place]-Tip ?Normal ?Normal ? This report has been electronically sign ed by: _ Crescencio Robin M.D. ? 10/08/2015 14:50:31 Images reviewed and interpretation verif ied [facility] Cardiac Ultrasound Laboratory Procedure Note Crescencio Robin MD - 10/08/2015Formatti ng of this note might be different from the original. Procedure: Stress Echocardiogram Patient: RYLIE Win (Age): [birth year](65y) Med Rec#: [id number] Sex: F [place] [facility] [place] Ht / Wt: 157(cm)/59(kg) Pt. Loc: ED BSA: 1.59 Study Date: 10/08/2015 Pt. Type: Tape: Referring: Aleida Tsai Reading: Crescencio Robin ([id number]) Financial Services Consultant: Juan Campa Range Feeder: Antwan Tovar Diagnosis: *ICD-10-PCS Chest pain, unspecified (R0 7.9) CPT Codes: *Stress Echo (96812) *Color Doppler (65109) *Doppler LTD (52484) *ECG Interpretation (35039) *Optison (62950IM) Stage BP HR Rest 134/88 96 Peak 154/80 166 Recovery 122/76 100 SUMMARY: 1. REST: ECG shows sinus rhythm with no pathologic Q waves and no ST depression. There is normal global left ventricular systolic function. Ejection fraction is estimated to be 65% . There are no left ventricular segmental wall motion abnormalities. 2. STRESS: The patient achieved a level of 11 METs.The patient did not express feelings of chest discomfort. Th e blood pressure response was normal. There were no significant ST seg ment changes. Echo imaging showed appropriate augmentation of all w all segments with exercise. 3. CONCLUSION: This was a normal echocar diographic stress test. Findings Rest: Study Quality: Adequate Left Ventricle: The left ventricular vida mber size is normal. Left ventricular wall thickness is norm al. There is normal global left ventricular systolic function. Ejection fraction is estimated to be 65%. There are no left ventricular segmental wall motion abnormalities. Left ventricular diastolic function is normal. Right Ventricle: The right ventricle is normal in size. Right ventricular global systolic funct ion is probably normal. The estimated pulmonary artery systolic pressure is 22 mmHg. The estimated right atrial pressure is 3 mmHg. Aortic Valve: The aortic valve is tricus pid. Systolic excursion of the aortic valve is normal. There is no evidence of aortic valve st enosis. There is no evidence of aortic regurgit ation. Mitral Valve: The mitral valve leaflets appear normal. There is no evidence of mitral regurgit ation. Tricuspid Valve: The tricuspid valve is probably normal. There is trace tricuspid regurgitation present. Pericardium: The pericardium appears nor mal and there is no evidence of a pericardial effusion. Aorta: The aortic root is normal in size . The ascending aorta is normal in size. Stress: EKG: normal sinus rhythm. The patient's oxygen saturation was 99% . The patient is taking a beta pola. The patient is taking a nitrate. The patient is on an NELSON inhibitor. The patient is taking aspirin. Misc: The cardiac valves appear structur ally and functionally normal. Optison contrast (one 3 ml vial) was us ed to enhance endocardial definition. Excess contrast was discarde d. Stress echo, limited spectral Doppler, color Doppler and ECG interpretation performed. Findings Peak: Predicted Values:The patient achieved a maximum heart rate of 166 which is 108% of the maximum predicted heart r ate (154 beats/min). The target heart rate was achieved. Stress: Patient followed a Crescencio protoco l. The patient exercised into stage 4. The total exercise duration was:9:42 mi ns. The study was terminated because of fat igue. The study was terminated because of dys pnea.8/10 SOB at peak exercise. The patient did not express feelings of chest discomfort. The patient experienced shortness of br eath. The blood pressure response was normal. Exercise capacity was excellent. The patient achieved a level of 11 METS . There were no arrhythmias. There were no significant ST segment ch anges. This was a negative electrocardiographi c stress test for ischemia. This was a negative echocardiographic s tress test. The patient's oxygen saturation was 99% . Chambers 2D Value Units (Range) IVSd (2D) 0.8 cm LVPWd (2D) 0.6 cm IVS:LVPW ratio (2D) 1.3 ratio LVIDd (2D) 4 cm LVIDs (2D) 2.3 cm LVIDd (2D) index 2.5 cm/m2 LVIDs (2D) index 1.5 cm/m2 LV FS (2D) 42 % EF Teichholz (2D) 73 % Ao root diameter (2D2.9 cm (2.1 - 3.6) Ascending Ao 3.1 cm (2 - 3.5) Volumes/Mass Value Units (Range) LV mass (2D) 83.4 g LV mass (2D) index 52.4 g/m2 Diastolic/Systolic Function Value Units (Range) MV E-wave Vmax 0.8 m/sec MV deceleration [id number] msec MV A-wave Vmax 0.8 m/sec MV E:A ratio 0.9 ratio LV septal e' Vmax 0.1 m/sec LV lateral e' Vmax 0.1 m/sec LV E:e' septal ratio9.9 ratio LV E:e' lateral rati6.6 ratio Tricuspid Valve Value Units (Range) TR Vmax 2.2 m/sec TR peak gradient 19 mmHg RAP 3 mmHg RVSP 22 mmHg Measurement Trending Name 10/08/2015 LVIDd (2D) 3.97 LVIDs (2D) 2.32 Wall Motion: Segment Name Rest Peak Base-Anteroseptal Normal Normal Base-Anterior Normal Normal Base-Anterolateral Normal Normal Base-Posterolateral Normal Normal Base-Inferior Normal Normal Base-Inferoseptal Normal Normal Mid-Anteroseptal Normal Normal Mid-Anterior Normal Normal Mid-Anterolateral Normal Normal Mid-Posterolateral Normal Normal Mid-Inferior Normal Normal Mid-Inferoseptal Normal Normal Salem-Septal Normal Normal Salem-Anterior Normal Normal Salem-Lateral Normal Normal Salem-Inferior Normal Normal [place]-Tip Normal Normal This report has been electronically sign ed by: _ Crescencio Robin M.D. 10/08/2015 14:50 :31 Images reviewed and interpretation sy iealberto [facility] Cardiac Ultrasound Laboratory Aleida Tsai MD ECHO ORDERABLES Performing Organization Address City/State/ZIP Code Phon e Number [facility] (ABNORMAL) Lipid panel (fasting) (10/08/2015 5:45 AM EDT) P athologist Signature Chol, Total 217 (H) <=199 [facility] mg/dL [facility] Comment: Recommendations of the NCEP Adult Treatm ent Panel for the following risk cutoff thresholds for the [place] popul[place] n: Desirable: <200 mg/dL Borderline High: 200-239 mg/dL High: > or = 240 mg/dL Triglycerides 178 (H) <=149 mg/dL [facility] Comment: Reference Range: Normal triglycerides: ??<150 mg/dL Borderline high: ??150-199 mg/dL High: ??200-499 mg/dL Very high: ??>wh=726 mg/dL JUANJO 2001; 285(19):5329-6519 HDL 44 >=40 mg/dL [facility] Comment: Reference range: ??Low HDL: ?? < 40 mg/dL ??Normal: ?40-60 mg/dL ??Desirable: > 60 mg/dL JUANJO 2001; 285(19):9513-7709 LDL Cholesterol 137 (H) <=99 mg/dL [facility] Comment: Reference range: ?? Optimal: ?<100 mg/dL ?? Near Optimal/Above Optimal: ?? 100-1 29 mg/dL ?? Borderline high: ?130-159 mg/dL ?? High: ? 160-189 mg/dL ?? Very high: ?>rr=197 mg/dL JUANJO 2001: 285(19):0716-9820 Chol/HDL Ratio 4.9 ratio [facility] Comment: A Cholesterol to HDL ratio below 4:1 is desirable. ??Studies suggest that increased CAD risk occurs at ratios abov e 5 for females and above 6 for men. ? [place] [employer] Association ??(htt p://www.americanheart.org) ? Renee Int Med, 1994; 121:641 ? AM J Med, 1998; 105(1A):48S Specimen Anatomical Collection Method Collection Time Receive d Time (Source) Location / / Volume Laterality Blood specimen 10/08/2015 5:45 AM 016 5:50 (specimen) EDT AM EDT Resulting Agency Comment Spec In Lab Aleida Tsai MD CHEMISTRY ORDERABLES Performing Organization Address City/State/[place] [address] Troponin T (10/07/2015 6:30 PM EDT) athologist Signature Troponin-T <0.03 <=0.03 [facility] ng/mL [facility] Comment: 0.03 ng/mL: Represents the 99th percenti le upper reference limit for normals. >0.03 ng/mL: Elevated cardiac troponin T level indicative of myocardial damage. Diagnosis of acute, evolving or recent M I requires a typical rise and gradual fall of cTnT with at least ONE of the fo llowing: a) Ischemic symptoms b) Development of pathologic Q waves on the ECG c) ECG changes indicative of eschemia (S -T segment elevation/depression) d) Coronary artery intervention Serial bloods should be obtained for bob ting on admission, at 6 to 9 hrs and again at 12 to 24 hrs if earlier samples are negative and the clinical index of suspicion is high. Reference: [Myocardial infarction redefined? a consensus document of the Joint Society of Cardiology/[place] College o f [employer] Committee for the redefinition of myocardial infarction. ? ?Journal of the [place] College [employer]iology 2000; 36: 959-969] Specimen Anatomical Collection Method Collection Time Receive d Time (Source) Location / / Volume Laterality Blood specimen 10/07/2015 6:30 PM 016 6:32 (specimen) EDT PM EDT Resulting Agency Comment Spec In Lab Aleida Tsai MD CHEMISTRY ORDERABLES Performing Organization Address City/[facility]/[place] [address] HOSPITAL [address] EKG 12 Lead (10/07/2015 6:05 PM EDT) Component Value Ref Range Test Analysis Performed Pathologis t Method Time At Signature Ventricular rate 58 BPM MUSE SYSTEM Atrial Rate 58 BPM MUSE SYSTEM P-R Interval 174 ms MUSE SYSTEM QRS Duration 82 ms MUSE SYSTEM Q-T Interval 420 ms MUSE SYSTEM QTC Calculated 412 ms MUSE SYSTEM (Bezet) Calculated P Willard 69 degrees MUSE SYSTEM Calculated R Willard 30 degrees MUSE SYSTEM Calculated T Willard 46 degrees MUSE SYSTEM INTERPRETATION Sinus bradycardia MUSE SY STEM Otherwise normal ECG When compared with ECG of 07-OCT-2015 15:13, (unconfirmed) No significant change was found Confirmed by MD Lilly Rajbir S ([id number]) on 10/08/2015 7:47:56 AM Specimen Anatomical Collection Method Collection Time Receive d Time (Source) Location / / Volume Laterality 10/07/2015 6:05 PM 6 7:47 EDT AM EDT Aleida Tsai MD ECG ORDERABLES Performing Organization Address City/State/ZIP Code Phon e Number MUSE SYSTEM EKG 12 Lead (10/07/2015 3:13 PM EDT) Component Value Ref Range Test Analysis Performed Pathologis t Method Time At Signature Ventricular rate 60 BPM MUSE SYSTEM Atrial Rate 60 BPM MUSE SYSTEM P-R Interval 174 ms MUSE SYSTEM QRS Duration 84 ms MUSE SYSTEM Q-T Interval 424 ms MUSE SYSTEM QTC Calculated 424 ms MUSE SYSTEM (Bezet) Calculated P Willard 65 degrees MUSE SYSTEM Calculated R Willard 12 degrees MUSE SYSTEM Calculated T Willard 40 degrees MUSE SYSTEM INTERPRETATION Normal sinus rhythm MUSE SYSTEM Normal ECG When compared with ECG of 07-OCT-2015 11:47, No significant change was found Confirmed by MD Lilly Rajbir S ([id number]) on 10/08/2015 7:47:41 AM Specimen Anatomical Collection Method Collection Time Receive d Time (Source) Location / / Volume Laterality 10/07/2015 3:13 PM 6 7:47 EDT AM EDT Aleida Tsai MD ECG ORDERABLES Performing Organization Address City/State/ZIP Code Phon e Number MUSE SYSTEM CT Chest Pulmonary Embolism With Contrast (10/07/2015 1:47 PM EDT) Anatomical Region Laterality Modality Chest Computed Tomography Specimen (Source) Anatomical Location Collection Method / Collectio n Time Received Time / Laterality Volume Impressions 10/07/2015 2:17 PM EDT 1. ??No acute pulmonary embolism identified. 2. ??No acute pulmonary process. Findings discussed with Dr. Tsai at 2: [address] Ramos. I have personally reviewed the image(s) and the residents interpretation and agree with the findings, Oscar Carvajal at 10/07/2015 2:17 PM Narrative 10/07/2015 2:17 PM EDT EXAMINATION: CT CHEST PULMONARY EMBOLISM WITH CONTRAST CLINICAL HISTORY: SOB, hypoxia TECHNIQUE: Helical CT angiogram of the c hest was performed after intravenous contrast administration of 95cc of Omnip aque 350. ??Thin-section reconstructions as well as coronal and sagittal MIP refo rmatted images were generated to aid in evaluation. COMPARISON: None FINDINGS: Pulmonary arteries: Normal caliber. ??No intraluminal filling defects. Other cardiovascular structures: Evaluat ion of the aorta is limited by timing of contrast, however, the thoracic aorta is normal in course and caliber without evidence of aneurysmal dilatation or dis section. ? Lungs and airways:? No focal consolidati on. Minimal bibasilar atelectasis. There is a small amount of scarring/atelectasi s in the anterior right upper lobe. A calcified 4 mm nodule is present in the right middle lobe (series 6, image 134), consistent with a granuloma. Pleura and pericardium: No pleural effus ion. The heart is normal in size no pericardial effusion. ? Mediastinum and hilar structures: No med iastinal, hilar or axillary lymphadenopathy. ? Limited views of the upper abdomen: The visualized aspects of the upper abdomen are unremarkable. Skeletal structures: No lytic or sclerot ic lesions. Procedure Note Oscar Carvajal MD - 10/07/2015Forma tting of this note might be different from the original. EXAMINATION: CT CHEST PULMONARY EMBOLISM WITH CONTRAST CLINICAL HISTORY: SOB, hypoxia TECHNIQUE: Helical CT angiogram of the c hest was performed after intravenous contrast administration of 95cc of Omnip aque 350. Thin-section reconstructions as well as coronal and sagittal MIP refo rmatted images were generated to aid in evaluation. COMPARISON: None FINDINGS: Pulmonary arteries: Normal caliber. No i ntraluminal filling defects. Other cardiovascular structures: Evaluat ion of the aorta is limited by timing of contrast, however, the thoracic aorta is normal in course and caliber without evidence of aneurysmal dilatation or dis section. ? Lungs and airways:? No focal consolidati on. Minimal bibasilar atelectasis. There is a small amount of scarring/atelectasi s in the anterior right upper lobe. A calcified 4 mm nodule is present in the right middle lobe (series 6, image 134), consistent with a granuloma. Pleura and pericardium: No pleural effus ion. The heart is normal in size no pericardial effusion. ? Mediastinum and hilar structures: No med iastinal, hilar or axillary lymphadenopathy. ? Limited views of the upper abdomen: The visualized aspects of the upper abdomen are unremarkable. Skeletal structures: No lytic or sclerot ic lesions. IMPRESSION 1. No acute pulmonary embolism identifie d. 2. No acute pulmonary process. Findings discussed with Dr. Tsai at 2: [address] Ramos. I have personally reviewed the image(s) and the residents interpretation and agree with the findings, Oscar Carvajal at 10/07/2015 2:17 PM Ethan Moore MD IMG CT ORDERABLES (ABNORMAL) D-Dimer, Quantitative (10/07/2015 11:55 AM EDT) athologist Signature D-Dimer, Quant 575 (H) 0 - 500 [facility] FEU ng/ml [facility] Comment: Specimen drawn more than one hour prior to testing. ??Results may not be reliable for heparin monitoring. ??(May be falsely low) The D-Dimer assay is used to aid in the diagnosis of deep vein thrombosis and pulmonary embolism. A normal D-Dimer res ult (less than 500 FEU ng/ml) has a negative predictive value of approximate ly 95% for the exclusion of acute PE and DVT when there is low to moderate pr etest probability. Specimen Anatomical Collection Method Collection Time Receive d Time (Source) Location / / Volume Laterality Blood specimen No Charge / 10/07/2015 11:55 6 (specimen) Unknown AM EDT 12:07 PM EDT Resulting Agency Comment Spec In Lab Aleida Tsai MD HEMATOLOGY ORDERABLES Performing Organization Address City/State/[place] [address] (ABNORMAL) Differential, Automated (10/07/2015 11:55 AM EDT) [facility] Method Time Signature Neutrophils % 67.5 % [facility] Neutr Abs (ANC) 7.79 (H) 1.50 - [facility] 6.30 [facility] x10(3)/[facility] LABORATORY Lymphocytes % 25.6 % [facility] Lymphocytes Abs 3.0 1.0 - 3.6 [facility] x10(3)/[facility] LABORATORY Monocytes % 5.0 % [facility] Monocyte Abs 0.6 0.2 - 1.0 [facility] x10(3)/[facility] LABORATORY Eosinophils % 0.7 % [facility] Eosinophils Abs 0.1 0.0 - 0.5 [facility] x10(3)/[facility] LABORATORY Basophils % 0.9 % [facility] Basophils Abs 0.1 0.0 - 0.2 [facility] x10(3)/[facility] LABORATORY Immature Gran % 0.30 % [facility] Comment: Immature granulocytes(IG's)percentage an d absolute count will include metamyelocytes, myelocytes, and promyelo cytes. Blood smears from CBCs yielding IG's will be scanned manually for concor dance. If this scan disagrees with the automated IG or if promyelocytes are not ed, a manual differential will be performed. Myra Gran Abs 0.04 0.00 - 0.05 x10(3)/[facility] MAR Y [facility] Specimen Anatomical Collection Method Collection Time Receive d Time (Source) Location / / Volume Laterality Blood specimen 10/07/2015 11:55 6 (specimen) AM EDT 12:07 PM EDT Resulting Agency Comment Spec In Lab Aleida Tsai MD HEMATOLOGY ORDERABLES Performing Organization Address City/State/[place] [address] (ABNORMAL) Hemogram (10/07/2015 11:55 AM EDT) Analysis Performed At Patho logist Time Signature WBC 11.5 (H) 4.0 - 10.[address] [facility] [facility] [address] x[facility](3[facility] LABORATORY RBC 5.18 3.93 - JESSICA FANY 5.22 [facility] x10(6)/[facility] LABORATORY Hemoglobin 14.8 11.2 - [facility] 15.[facility] gm/dL [facility] Hematocrit 43.2 34.0 - [facility] 45.0 % [facility] MCV 83.4 79.0 - [facility] 94.0 [facility] LABORATORY MCH 28.6 26.6 - [facility] 32.2 pg [facility] MCHC 34.3 32.0 - JESSICA FANY 36.5 gm/dL [facility] Platelets 354 145 - 370 [facility] x10(3)/[facility] LABORATORY RDWSD 38.4 35.0 - [facility] 46.0 [facility] LABORATORY RDWCV 12.7 10.9 - [facility] 14.4 % [facility] MPV 10.3 9.0 - 12.[address] [facility] nRBC % Auto 0.0 % [facility] nRBC Abs Auto 0.000 0.000 - [facility] 0.012 [facility] x10(3)/[facility] LABORATORY Specimen Anatomical Collection Method Collection Time Receive d Time (Source) Location / / Volume Laterality Blood specimen 10/07/2015 11:55 6 (specimen) AM EDT 12:07 PM EDT Resulting Agency Comment Spec In Lab Aleida Tsai MD HEMATOLOGY ORDERABLES Performing Organization Address City/State/[place] [address] (ABNORMAL) Basic Metabolic Panel (non-fasting) (10/07/2015 11:55 AM EDT) P athologist Signature Glucose Lvl 109 65 - 199 [facility] mg/dL [facility] Comment: Diabetes: >=200 mg/dL plus symp toms BUN 18 8 - 18 mg/dL [facility] Creatinine 0.85 0.70 - 1.20 mg/dL [facility] Comment: Please note that the pediatric reference intervals supplied above were not validated at [facility]. Results from pediatri c patients should be interpreted in conjunction to the patient's age, height and muscle mass. Sodium 139 135 - 145 mmol/L [facility] Potassium 3.8 3.5 - 5.0 mmol/L [facility] Comment: Please note: ??Patients with WBC >100,00 0 may have falsely elevated Potassium levels. ??For accurate Potassium quantif ication in these patients send serum separator tube (gold top) for subsequent determinations. ??Contact the Clinical Chemistry Laboratory if there are any qu estions. Chloride 98 98 - 107 mmol/L [facility] CO2 20 (L) 22 - 31 mmol/L [facility] Anion Gap 21 (H) 5 - 15 mmol/L [facility] Calcium 10.5 8.5 - 10.5 mg/dL [facility] Estimated GFR >60 >=60 [facility] Comment: This estimated GFR (eGFR) value was calc ulated using the MDRD equation which has been validated on patients between t he ages of 18 and 70. The MDRD should not be used to assess kidney function in patients < 18 years of age or in patients with extremes of body mass, or in patients with acute kidney failure. This value should be multiplied by 1.2 f or patients. For further information please copy and past e the following links into your internet browser. http://Bouju/DHnkdep http://Bouju/DHMCnkf Specimen Anatomical Collection Method Collection Time Receive d Time (Source) Location / / Volume Laterality Blood specimen 10/07/2015 11:55 6 (specimen) AM EDT 12:07 PM EDT Resulting Agency Comment Spec In Lab Aleida Tsai MD CHEMISTRY ORDERABLES Performing Organization Address City/[facility]/ZIP Code Phon e Number [place] [id number] Cardiac Enzymes (10/07/2015 11:55 AM EDT) P athologist Signature Troponin-T <0.03 <=0.03 [facility] ng/mL [facility] Comment: 0.03 ng/mL: Represents the 99th percenti le upper reference limit for normals. >0.03 ng/mL: Elevated cardiac troponin T level indicative of myocardial damage. Diagnosis of acute, evolving or recent M I requires a typical rise and gradual fall of cTnT with at least ONE of the fo llowing: a) Ischemic symptoms b) Development of pathologic Q waves on the ECG c) ECG changes indicative of eschemia (S -T segment elevation/depression) d) Coronary artery intervention Serial bloods should be obtained for bob ting on admission, at 6 to 9 hrs and again at 12 to 24 hrs if earlier samples are negative and the clinical index of suspicion is high. Reference: [Myocardial infarction redefined? a consensus document of the Joint Society of Cardiology/[place] [employer] Committee for the redefinition of myocardial infarction. ? ?Journal of the [place] [employer] 2000; 36: 959-969] CK, Total 59 0 - 160 unit/L [facility] Specimen Anatomical Collection Method Collection Time Receive d Time (Source) Location / / Volume Laterality Blood specimen 10/07/2015 11:55 6 (specimen) AM EDT 12:07 PM EDT Resulting Agency Comment Spec In Lab Aleida Tsai MD CHEMISTRY ORDERABLES Performing Organization Address City/[facility]/[place] [address] Blue Tube HOLD (10/07/2015 11:55 AM EDT) P athologist Signature Blue Hold Sample in [facility]. [facility] Specimen Anatomical Collection Method Collection Time Receive d Time (Source) Location / / Volume Laterality Blood specimen 10/07/2015 11:55 201 6 (specimen) AM EDT 12:07 PM EDT Aleida Tsai MD HEMATOLOGY ORDERABLES Performing Organization Address City/State/[place] [address] EKG 12 Lead (10/07/2015 11:47 AM EDT) [facility] gist Method Time Signature Ventricular rate 60 BPM MUSE SYSTEM Atrial Rate 60 BPM MUSE SYSTEM P-R Interval 142 ms MUSE SYSTEM QRS Duration 76 ms MUSE SYSTEM Q-T Interval 432 ms MUSE SYSTEM QTC Calculated 432 ms MUSE SYSTEM (Bezet) Calculated P Willard 25 degrees MUSE SYSTEM Calculated R Willard 25 degrees MUSE SYSTEM Calculated T Willard 47 degrees MUSE SYSTEM INTERPRETATION Normal sinus rhythm MUSE SYSTEM Normal ECG No previous ECGs available Confirmed by MD Butler Douglas ([id number]) on 10/07/2015 2:40:37 PM Specimen Anatomical Collection Method Collection Time Receive d Time (Source) Location / / Volume Laterality 10/07/2015 11:47 10/07/2015 2:40 AM EDT PM EDT Narrative This result has an attachment that is no t available. Aleida Tsai MD ECG ORDERABLES Performing Organization Address City/State/ZIP Code Phon e Number MUSE SYSTEM documented in this encounter Visit Diagnoses Diagnosis Chest pain, unspecified type - Primary Shortness of breath Elevated white blood cell count, unspeci fied Hyperlipidemia, unspecified hyperlipidem ia type Essential hypertension, hypertension wit h unspecified goal Personal history of digestive disease Personal history of unspecified digestiv e disease Personal history of tobacco use, present ing hazards to health documented in this encounter Admitting Diagnoses Diagnosis Chest pain Chest pain, unspecified documented in this encounter Administered Medications Inactive Administered Medications - up to 3 most recent administrations Medication Order MAR Action Action Date Dose Rate Site aspirin chewable tablet 324 mg Given 10/07/2015 12:34 PM EDT 243 mg 324 mg, Oral, DAILY, First dose on 10/07/15 at 1144, Until Discontinued, Unless allergic or given BOOM BOSS. If partial dose administered BOOM BOSS administer remaining MG for a total dose of 325 mg/day., Routine iohexol (OMNIPAQUE) 350 mg/mL solution Given 10/07/2015 1:38 PM EDT 14,000 mg 14,000 mg 14,000 mg (40 mL), Intravenous, ONCE PRN, 1 dose, Starting on 10/07/15 at 1337, Until 10/07/15 at 1338, Per Protocol, Warning Vesicant/Irritant Medication , Routine perflutren protein-A microspheres (OPTIS ON) 0.22 mg/mL injection 3 mL 3 mL, Intravenous, ONCE PRN, 1 dose, Starting on Sun at 1203, Until 10/08/15 at 1738, for enhancement of sub-optimal echo i halies, Echo Lab (Intra-Procedure), Routine sodium chloride 0.9% 1,000 mL IV bolus Given 10/07/2015 7:58 PM EDT 4000 mL/hr at 4,000 mL/hr, Intravenous, ONCE, 1 dose, On 10/07/15 at 1942 documented in this encounter Active and Recently Administered Medications Times are shown in EDT. Scheduled Medication Order 10/06/2015 10/07/2015 10/08/2015 aspirin chewable tablet 324 mg 1234 (Giv en - Provider: Elsie Umanzor RN - Comment: pt took aspirin 81mg at home. aspirin 81mg x3 admin as per Dr Cortez to equal total 324mg) 0900 (Due) 324 mg, Oral, DAILY, First dose on Sat at 1144, Until Discontinued, Unless allergic or given BOOM BOSS. If partial dose administered BOOM BOSS administer remaining MG for a total dose of 325 mg/day., Routine aspirin tablet 325 mg 0000 (Not Given - Provider: Anton Trivedi RN - Reason: Contraindicated) 325 mg, Oral, ONCE, 1 dose, 10/08/15 at 0000, STAT sodium chloride 0.9% 1,000 mL IV bolus (COMPLETED) 195 (Given - Provider: Anton Trivedi, TORRIE) at 4,000 mL/hr, Intravenous, ONCE, 1 dose, 10/07/15 at 1942 PRN Medication Order 10/06/2015 10/07/2015 10/08/2015 acetaminophen (TYLENOL) tablet 650 mg 650 mg, Oral, EVERY 4 HOURS PRN, Startin g 10/07/15 at 1649, Until 10/08/15 at 1738, Pain, Maximum dose of acetaminophen is 4000 mg from all sources in 24 hours., STAT iohexol (OMNIPAQUE) 350 mg/mL solution 14,000 mg (COMPLETED) 1338 (Given - Provider: Elliott Gee) 14,000 mg (40 mL), Intravenous, ONCE PRN , 1 dose, Starting 10/07/15 at 1337, Until 10/07/15 at 1338, Per Protocol, Warning Vesicant/Irritant Medication , Routine nitroGLYcerin (NITROSTAT) SL tablet 0.4 mg 0.4 mg, Sublingual, EVERY 5 MIN PRN, 3 d oses, Starting 10/07/15 at 1649, Until 10/08/15 at 1738, Chest pain, SL nitroglycerin may be repeated every 5 minutes as needed up to 3 doses, STAT perflutren protein-A microspheres (OPTISON) 0.22 mg/mL injection 3 mL 3 mL, Intravenous, ONCE PRN, 1 dose, Sta rting 10/08/15 at 1203, Until 10/08/15 at 1738, for enhancement of sub-optimal echo images, Echo Lab (Intra- Procedure), Routine documented in this encounter Care Teams Aeronautical Engineer Relationship Specialty Start Date End Date Rebecca Monsivais MD PCP - General 01/09/[address] [place] [address] documented as of this encounter
--- OUTSIDE RECORDS SUMMARY | 2021-09-04 02:15 | XMS_ITS | Encounter Summary ---
:1950 Author Organization [facility] Address [address] [place] [address] Care Team Providers Name Role Phone Unknown, Provider Primary Care Provider Encounter Details Date Type Department Care Team Description 10/06/2019 Lab Requisition [facility] Outr Resulting Lab, Pathology & Laboratory Provider [facility] [address] [place] [address] Social History Tobacco Use Types Packs/Day Years Used Date Never Assessed Sex Assigned at Date Recorded Not on file documented as of this encounter Plan of Treatment Not on filedocumented as of this encounter Procedures Procedure Name Priority Date/Time Associated Diagnosis Comme nts CHRONIC HEPATITIS Routine 10/05/2019 9:00 EDT Res ults for this PROFILE, UNKNOWN procedure a re in TYPE the results section. documented in this encounter Results CHRONIC HEPATITIS PROFILE, UNKNOWN TYPE (10/05/2019 9:00 EDT) Hep B Surface Ag Negative Negative [facility] Hep B Surface Ab, 6.1 See Note mIU/mL [facility] Quantitative Comment: [facility] Reference Range for Hep B Surface Ab, Quant: SERVICES Positive: >= 10.0 mIU/mL Negative: ??< 10.0 mIU/mL Patient is presumed to not be immune to infection with Hepatitis B Virus. Hep B Surface Ab, Negative See Note [facility] Qualitative Comment: [facility] Reference Range for Hep B Surface Ab, Qual: SERVICES Unvaccinated: ??Negative Vaccinated: ??Positive Hepatitis B Core Negative Negative [facility] Ab, Total [facility] Hep C Antibody Negative Negative [facility] Specimen Blood - Venous blood (substance) Performing Organization Address City/State/ZIP Code Phon e Number [facility] [address] [place] [address] SERVICES documented in this encounter Visit Diagnoses Not on filedocumented in this encounter Care Teams Salesperson Books Relationship Specialty Start Date End Date Unknown, Provider, PCP - General 10/09/15 documented as of this encounter
--- OUTSIDE RECORDS SUMMARY | 2021-09-04 02:15 | XMS_ITS | Encounter Summary ---
:1950 Author Organization [facility] [place] [address] Care Team Providers Name Role Phone Rebecca Monsivais MD Primary Care Provider Encounter Details Date Type Department Care Team Description 12/20/2019 Refill Dermatology at [facility] Ella Levy, MADIHA [address] [place] [address] Social History Tobacco Use Types Packs/Day Years Used Date Former Smoker Smokeless Tobacco: Never Used Alcohol Use Standard Drinks/Week Comments No 0 (1 standard drink = 0.6 oz pure alcoho l) Sex Assigned at Date Recorded Not on file documented as of this encounter Plan of Treatment Upcoming Encounters Date Type Specialty Care Team Description 12/24/2021 Office Visit Dermatology Aryan Chris MD [address] DERMATOLOGY [place], [place] [address] (Wo rk) documented as of this encounter Visit Diagnoses Not on filedocumented in this encounter Care Teams Hydrochloric Acid Operator Relationship Specialty Start Date End Date Rebecca Monsivais MD PCP - General 01/09/[address] [place], [place] [id number] documented as of this encounter
--- OUTSIDE RECORDS SUMMARY | 2021-09-04 02:15 | XMS_ITS | Encounter Summary ---
:1950 Author Organization [facility] [address] Care Team Providers Name Role Phone Rebecca Monsivais MD Primary Care Provider Encounter Details Date Type Department Care Team Description 09/30/2017 Procedure visit Dermatology at [facility], Basal cell carcinoma Geri NAVAS of scalp [address] [facility] [id number] [place] [address] [phone] Social History Tobacco Use Types Packs/Day Years [...] Pulse 74 09/30/2017 8:06 AM EDT Temperature - - Respiratory Rate - - Oxygen Saturation - - Inhaled Oxygen Concentration - - Weight - - Height - - Body Mass Index - - documented in this encounter Patient Instructions Patient InstructionsStephanie Lamb LPN - 09/30/2017 8:30 AM EDT Your staff surgeon today was Maico Klein MD. Your wound(s) was repaired by [id number] stitches called a primary repair. Instructions are as below. Please keep as a reference: After Surgery 1. Avoid tobacco, smoking/vapors, cigars, and cannabis (marijuana) for at least 3 weeks after your surgery. These prevent proper healing and lead to worse scarring. Cutting back on tobacco is helpful if you cannot abstain completely. 2. Do not drink alcohol for roughly 3 days as this can slow healing or cause bleeding. 3. Do not participate in athletic activities for 1 week, unless you were told a different timeline during your visit. Athletic activity is a relative term, but this is considered to be anything that could potentially raise your heartrate or blood pressure. Elevating your heart rate and blood pressure increases the risk of swelling, bleeding, wound opening, and it could lead to worse scarring. Walkingat a leisurely pace is fine for most people, but not if you are walking for the purpose of exercise.When in doubt, take it easy or call us. 4. Do not lift anything heavier than 10 pounds until your sutures are removed. 5. Some registered public surveyor may need to be delayed or delegated such as vacuuming, mowing the lawn, snow shoveling, or caring for young children that need to be carried/lifted. Working any major muscle groups increases your heart rate and can increasing bleeding. 6. Avoid swimming, hot tubs, and direct water pressure for 3 weeks after surgery. You may shower, however, once your initial bandage comes off in 48 hours. 7. Avoid antibiotic ointments such as triple antibiotic creams. Stick with your wound care instructions, please. 8. Whenever possible, it is helpful to take photographs with your camera or cell phone of any problems or concerns you see with your wound. We often ask for photos when you call with questions. 9. Starting 2 months following surgery, you can begin firm massage to any areas of firm scar along your incision to soften the scar and reduce bumpiness. Do this 3 times per day, 3 minutes each time. Do not start massage before 2 months. 10. Your wound will appear almost completely healed soon after sutures are removed (about 1 week), but incisions can remain bright red for several weeks. Then the scarring and healing process continuesunder the skin for 6 months until to 2 years. The scar may become less red, less firm, and more subtle during this time; please note that the rate of improvement varies depending on the person. Most redness, discoloration, bumpiness resolves by 6 months, and most patients will look presentable within a few weeks after surgery. 11. Keep your follow-up appointments and make sure to continue to have your skin checked, as often as is recommended by your system operation superintendent, for new skin cancers. This is once per year for most patients. 12. Your can expect your scar to be red for several weeks with gradual fading of the redness. Your scar will also be raised and lumpy until the dissolvable sutures under the skin get absorbed by your body which can take 3-4 months. The scar will flatten eventually. a. If you have a skin condition called rosacea, the redness can last long-term, or you can get an increased appearance of red vessels to the skin. The appearance of vessels slightly improves, but tendsto respond well to laser treatments. 13. Occasionally, about 20% of the time on the face, the stitches under the skin can spit out of the incision to the surface. It can start out looking like a pimple or blemish directly on your incision. Sometimes you can feel something poking through the incision. it can look also minic a small areaof infection, so please let us know before you go to another provider for antibiotics. This means that the suture may need to be trimmed or removed when you return for your wound check. This typically occurs a few weeks after surgery if it does occur. 14. To optimize your scar, and best cosmetic result, please avoid direct sunlight to your incision for the first 6 months following surgery. UV ray exposure to your incision may cause the redness to last longer, or to cause permanent darkening of your scar. You can avoid sun by covering your incision w ith a bandage when outdoors, wearing broad-rimmed hats, and wearing SPF 30 to 50 sunscreen (broad spectrum). 15. Sometimes after your sutures are removed, your incision may still be healing for 1 more week. Because of this, avoid make-up and sunscreen until approximately 2 weeks after surgery. You can begin sooner if your skin edges look completely sealed. 16. Any time you have skin surgery or any type of surgery, you can experience mild sensation loss (numbness) in the area of surgery. Massage starting at 8 weeks after surgery can help. 17. Swelling and bruising is common, and expected, especially if your surgery site was on the forehead, cheeks, temples, nose, or eyelids. . Sometimes it can be quite profound, where the eyelids swell shut, or getting black eyes. This is especially true if you are on blood thinners such as aspirin. Swelling and bruising will peak at about 48 hours after surgery. Bruising and swelling will graduallyresolve. You can use ice packs or a bag of frozen peas for 15-20 minutes, 20 minutes off, up to 3-4 times daily to areas of swelling on the face. Use caution not to put the icy item directly onto your incision, or directly in contact with your skin as this can damage skin. Avoid prolonged use more than 20 minutes. The best way to use ice packs is over the bandage, or using a light cloth/paper towel barrier between the ice pack and your skin. You can ice for as many days as needed until swelling has resolved. Eyelid and lip swelling is typically the last type of swelling to resolve. Wound Care ??? Gently remove your initial bandage (after 48 hours from surgery). It is normal to have swelling and bruising. ??? Begin wound care as below. ??? If your initial bandage only stayed on for 24 hours (for example, falls off sooner), this is okay. Resume your wound care and bandaging instructions as below. ??? Change your bandage once a day (and whenever it becomes wet or soaks through) until your suturesare removed. If you have absorbable sutures, you do wound care for 1 week and then stop. ??? For bandage changes: o Wash hands with soap and water, or use gloves that you can purchase at a local pharmacy or drug store. o Clean the surgical area with cotton-tipped swabs or soft gauze dipped in soapy water (recommend liquid soap in clean room temperature water). Roll the cotton swab over the incision with soapy water, then with plain water, and then gently pat dry. Do not scrub the area with a washcloth. Do not put direct shower water pressure onto your wound. Do not pick off any scabs. It is okay to allow soapy water to run over your wound in the shower, however. o If you cannot remove any bloody or crusted areas, you may soak the area with wet gauze first for 15 to 20 minutes to help soften it o Pat the area dry with clean gauze or cotton swabs. Do not rub. o Use a cotton swab to apply a generous layer of petrolatum over the incision lines and any open-wound areas. o Make sure your tube or jar of petrolatum is new or unused to prevent prior contamination from entering your wound. Avoid double dipping. o After applying petrolatum, use a clean nonstick gauze or other nonstick dressing, such as Telfa. This may be purchased over the counter at a drug store. Do not use regular gauze as it will stick to your wound and can peel off healing skin with bandage changes. o Secure the bandage with paper tape or a bandage. Band-aids are okay, but typically have more adhesive that can irritate the skin compared to paper tape. This can be purchased at a drug store. o Continue this wound care daily until stitches are removed. This is typically for 5-7 days. If you had absorbable stitches used, you will do wound care for 1 week then stop. Keep in mind that if you do not want to use a bandage at all due to difficulty, allergies, irritation of skin, cost, time, or inconvenience --- you can certainly avoid bandages altogether. However, itis imperative that you continue with topical petrolatum ointment or Aquaphor (plain, fragrance-free). This may need to be applied several times daily if it gets wiped off, washed off, or dries out. Things to purchase for wound care: -Nonstick gauze -A tube or tub of petrolatum jelly (fragrance-free, no dye, not lotion) -paper tape -cotton swabs -gloves (optional) -Dial or other antibacterial liquid soap If you have specific questions or instructions, it can be written/typed by your nurse or doctor here: Antibiotics: If you were given antibiotic prescription, it is important to start them the evening of your surgerydate. However, most patients do not need antibiotics after surgery. For pain: Most patients of different ages do not require pain medications. If you do feel soreness, throbbing or sharp pains, start by taking over the counter extra strength acetaminophen (up to 3000 mg in a 24 hour period). Generally, we like you to avoid NSAIDS (non-steroid anti-inflammatory drugs such as ibuprofen) for the first 48 hours after surgery as this can increase risk of bleeding. However, if acetaminophen is not helping with pain, you can alternate acetaminophen with iburpofen or other NSAID. Icepacks over your bandage without getting your bandage wet can also help with pain and swelling. Frozen peas work well as ice packs. THIS IS AN EXAMPLE OF A PAIN TREATMENT SCHEDULE: 1) You can take 500 mg acetaminophen one tablet by mouth at 6:00pm. This is over the counter. 2) You can take 400 mg of ibuprofen two hours later, at 8:00 pm, or other NSAID such as naproxen, aslong as it does not interact with your other medications and your other doctors have not told you toavoid this. This is over the counter. Check to see how many milligrams (mg) each of your ibuprofen tablets are. Most of the time, ibuprofen comes in 200 mg tablets, so 400 mg would mean taking two of these tablets or capsules. 3) You can take 500 mg of acetaminophen at 10:00 pm. Keep track of your total acetaminophen in a 24 hour period as your maximum should be 3000 mg total in a 24 hour period of this medication. 4) At midnight, you can take another 400 mg of ibuprofen. 5) you can continue on this schedule over the next 2 days, making sure to keep tabs of your total acetaminophen. If you are still in pain after trying the above, please call us. When to call your surgeon: ??? Fever of 100.4 degrees Fahrenheit or higher ??? Bleeding not controlled with direct firm pressure to your wound. Bleeding is most common in the first 48 hours. ??? Pain that is worsening and not relieved by over the counter medications such as acetaminophen (up to 3000 mg in a 24 hour period) ??? Wound reopening after stitching ??? Pus or bad odor from your wound ??? Worsening redness and warmth around your wound ??? If you think your surgery site is infected, please call us before seeking care or antibiotics from other providers ??? Please call us before seeking care in an emergency room or primary care. ??? If you do call, please leave your full name, phone number, date of , date of surgery, and medical record number if you have it. If after hours, please call the plastic cnc machine operator or [phone] and ask for the system operation superintendent on-call. If you have any non-urgent questions or concerns, please feel free to call my office or contact me through our patient portal, [employer], at [email or web address] How to contact us during business hours Dermatology at [facility]: Mohs scheduling or Mohs follow-up appointments: [phone] documented in this encounter Progress Notes Maico Klein MD - 09/30/2017 8:30 AM EDT Mohs consultation and preoperative note (H&P) Patient Name: Genna Patel Age: 67 y.o. Date of : 1950 Today's Date: 09/30/2017 REFERRING PROVIDER: Maryse Ashley MD CC: Mohs micrographic surgery for treatment of a cutaneous tumor HPI: Genna Patel is a 67 y.o. female presenting for biopsy-proven basal cell carcinoma, nodular and infiltrative types, location on the 3.5 cm posterior to the frontal hairline. The dermatologic preoperative information sheet was reviewed with pertinent positive and negative as below. DERMATOLOGIC PRE-OPERATIVE EVALUATION AND REVIEW OF SYSTEMS (Check those that apply) Yes No Yes No [x] [] Prior skin cancer(s)Basal Cell,scalp,Nose-Mohs, Chest,face [] [x] Organ transplant (type/year) [] [x] History of melanoma? [] [x] History of radiation to head/neck areas for skin cancer [] [x] Heart disease? [] [x] Cardiac stents [] [x] Valve replacement (which valves and year) [] [x] Pacemaker [] [x] Defibrillator [] [x] Joint replacement or scheduled for one soon (how long ago) [] [x] Hearing aids [] [x] Cochlear, cosmetic, or other implants? [x] [] Hypertension (controlled) [x] [] Lung Disease/COPD/asthma? And If yes, do you have difficultylying flat due to breathing?Exercise induced Asthma. [] [x] Dementia/stroke [] [x] Liver disease [] [x] Other cancers [] [x] Hepatitis or HIV [] [x] Diabetes (Type 1 or 2) [] [x] Bleeding disorder [] [x] History of reaction to suture or glue [] [x] Fibromyalgia or extreme sensitivity to pain [] [x] Personal history of addiction to alcohol, drugs, or prescription medications [] [x] Basal cell nevus syndrome (ie genetic syndromes that predispose to skin cancer) [] [x] Have you EVER had a prior prosthetic joint infection [] [x] Any drugs that suppress your immune system such as prednisone that you are taking regularly [] [x] Other (scarring issues, relevant anesthesia allergies, needle phobia, anxiety, etc): [] [x] History of congenital heart defects where a prosthetic device was placed (at or childhood) BLOOD THINNERS: None Yes No [] [x] NSAIDS [x] [] Fish oil/Multivitamin/Vit E/?? supplements?? (discontinue 1 week before and after surgery) [] [x]???natural?? medicines not prescribed by a physician (discontinue 1 week before and after) SOCIAL HISTORY: Occupation: Retired operations support analyst programer Distance driven today: 85 miles Makes Own Decisions-yes Who is accompanying patient today (and relationship to patient): Sister -Tiffany Lennon Hearing aid or other devices:no Who lives with patient (i.e. spouse, children, fpc/half-way) Relevant travel history or future plans: no Prior bed tanning use no Does patient need any assistive devices: no Sunscreen use:All the time Tobacco use ( former smoker): Alcohol use No Marital status: Highest grade completed-12 yrs Is the patient literate no History of bed tanning no Any physical limitations-no PAST MEDICAL HISTORY Past Medical History: Diagnosis Date ??? Basal cell carcinoma ??? Hyperlipidemia ??? Hypertension PAST SURGICAL HISTORY No past surgical history on file. ALLERGIES: Allergies Allergen Reactions ??? Lisinopril Palpitations MEDICATIONS: Current Outpatient Prescriptions on File Prior to Visit Medication Sig Dispense Refill ??? loratadine (CLARITIN) 10 mg Tablet Take 10 mg by mouth daily. ??? omeprazole (PRILOSEC) 20 mg Capsule, Delayed Release(E.C.) Take 20 mg by mouth daily. ??? hydrochlorothiazide (HYDRODIURIL) 25 mg Tablet TAKE ONE TABLET BY MOUTH EVERY DAY 0 No current facility-administered medications on file prior to visit. VITAL SIGNS: BP 148/85 (BP Location (NBP): Left arm, Patient Position: Sitting, BP Cuff Sizes: Adult (25-34 cm)) Pulse 74 PHYSICAL EXAMINATION: General: patient is awake, alert, oriented and in no acute distress. Skin: Focused examination of surgical site(s) performed which shows an erythematous scar corresponding with recent biopsy site. PHYSICIAN REVIEW OF REPORTS, RECORDS, IMAGES: 1) Biopsy slide(s) was/were requested and reviewed today by the Mohs surgeon prior to surgery and I agree with diagnosis in the associated pathology report. 2) The accompanying pathology report(s) associated with aforementioned biopsy slide(s) were/was alsoreviewed. Assessment: Genna Patel is a 67 y.o. female presenting for: 1. Biopsy-proven basal cell carcinoma, nodular and infiltrative, located on the 3.5 cm posterior to the frontal hairlline. Clinically there is significant residual tumor on exam. Plan: 1. Findings from the biopsy report, my independent review of the histopathology from the biopsy slides, today's clinical exam, and other pertinent details were reviewed with patient today. All questions were answered. 2. Discussed treatment options based on the above findings. We recommended Mohs micrographic surgeryfor treatment of this tumor. Mohs micrographic surgery was indicated due to patient, site and/or tumor characteristics (see operative report for specific indication). 3. We discussed risks, benefits, and alternative treatment options to the Mohs micrographic surgery procedure and pertinent information including but not limited to the following: ?? Risks include bleeding, infection, scar, recurrence, incomplete tumor removal or inability to cure with surgery alone if the tumor features are more aggressive than the initial pathology indicates. Occasionally, additional adjuvant treatments may be recommended. Additional risks include large wound, prolonged wound and healing, pain, swelling, bruising, increased appearance of vessels or worseningerythema of baseline skin; more rarely risks include damage to underlying structures such as nerves,cartilage, or muscle which could lead to temporary or permanent loss of sensation or motor function. ?? Benefit is precise tumor removal ?? If reconstruction is performed, it is specific to the patient and defect. ?? Discussed that the shape, size, depth of the wound is often not known until the tumor is cleared and thus the reconstruction options are sometimes not known until after tumor clearance. Occasionally, referrals to other providers may be recommended for reconstruction based on patient preference and need. ?? Reviewed the pros and cons of common reconstructions used for this tumor type, size, and location, and that reconstruction may lead to change in appearance. ?? Natural history of scar was discussed, including that the scar will continue to mature for 1-2 years. Recommended avoidance of special ointments or scar creams, and avoidance of direct sun exposure to the scar for optimal recovery. ?? Reviewed that there are some aspects of cosmesis that are dependent on patient's characteristics such as age, skin laxity/texture factors, inflammatory skin diseases such as rosacea, prior surgery/radiation, degree of actinic damage, smoking status, strength of the patient's immune system, diligentwound care, medications, and genetics. ?? Having Mohs surgery may lead to physical limitations for optimal healing, such as restricted physical activity and heavy lifting. 4. The nature of sun-induced photo-aging and skin cancers was discussed. Recommended sun avoidance when possible, especially peak hours of sun 10 am to 2pm, protective clothing such as wide-brimmed hats and long-sleeved clothing, and the use of SPF broad-spectrum sunscreen SPF 50 or higher. 5. Signs and symptoms of skin cancer reviewed. Patient to report any new, changing, or symptomatic lesions and follow up with his or her system operation superintendent or other skin provider. 6. Discussed avoiding direct sun exposure to scars for best cosmetic result. Summary of Procedure(s): 1. Please see operative report for complete details. Briefly, the tumor cleared in two stages. The final defect was repaired by Complex linear closure . Suture removal in 1 week. Maico Klein MD Mohs Micrographic Surgery and Dermatologic Oncology Section of Dermatology, Department of Surgery Maico Klein MD - 09/30/2017 8:30 AM EDT Mohs micrographic Surgery Operative Report Patient name: Genna Patel : 1950 Date: 09/30/2017 Staff Surgeon: Maico Klein MD Nursing/Comparator Operator(s): Stephanie Lamb, Radha Mcallister, Jody Driver, Tea Koo, Irais EllisegandDana, Mark San Hosiery Bagger (s): Samantha Rubin Pre-operative diagnosis: Basal cell carcinoma,nodular and inflitrative Post-operative diagnosis: Basal cell carcinoma,nodular and inflitrative Location/Site: posterior to frontal hairline Procedure: Mohs micrographic surgery Indication(s) for Mohs micrographic surgery: Anatomic location for tissue canservation Stages: 2 Preoperative size of tumor: 1.3 x 1.1 cm Final defect size: 1.9 x 1.8 cm Stage I The nature and purpose of the procedure, associated risks, possible consequences and complications,and alternative forms of treatment were explained in detail. We reviewed the possible repairs based on the clinical appearance of tumor but discussed that often the repair options may not be known until the tumor has lino extirpated. Informed consent and permission to take photographs were obtained. The site was confirmed with the patient/authorized containers sales representative/referring physician and/or a photograph form time of biopsy. A pre-operative time-out (procedural pause) was conducted with no unresolved d iscrepancies noted. Local anesthesia was obtained with 1% lidocaine with 1:100,000 epinephrine. The surgical site was prepped and draped in the usual sterile manner. Clinically apparent tumor was removed by curette. With all visible gross tumor completely excised, the borders of the tumor and 2-3 mm margins were excised as a complete layer. Hemostasis was achieved by electrocoagulation. The excised tissue was oriented and divided into two sections, chromacoded, and submitted for frozen sections. The patient tolerated the procedure well and without complications. On microscopic evaluation of the frozen sections, residual tumor was identified as basal cell carcinoma,nodular and infiltrative on section A1 (see section number on map). Stage II The surgical site was re-anesthetized with 1% lidocaine with 1:100,000 epinephrine, re-prepped and redraped in a sterile manner. The residual tumor was re-excised as a complete layer 2-3mm in thickness using the Mohs map to delineate area of residual tumor. Hemostasis was achieved with electrocoagulat ion. The tissue was oriented and divided into 1 sections, chromacoded, and submitted for frozen sections. The patient tolerated the procedure well and without complications. On microscopic evaluation of the frozen sections, no residual tumor was identified on the deep or outer border of the sections. The final size of the defect after complete tumor removal was 1.9 x 1.8 cm, extending to fat.. Maico Klein MD Repair Operative Report (Complex Linear Repair) Patient name: Genna Patel : 1950 Clinical Diagnosis: 1.9 x 1.8 cm surgical defect secondary to Mohs microscopically controlled excision Location/Site: posterior to frontal hairline Indication: repair of wound for muslim of function/anatomy Procedure: Complex linear layered closure of Mohs defect Due to the size and location of the defect resulting from the complete removal of the tumor, the postoperative risk of hemorrhage, infection, and the possibility of serious deformity from scarring, and in order to restore proper function and prevent loss of function, the defect was closed in the following manner. The [...] deep tissues were apposed and sutured with 4-0 Monocryl sutures and the epidermal edges were approximated with 5-0 prolene running and/or interrupted sutures. The resulting complex linear closure measured 4.7cm. The central portion was left to heal by second intention due to high tension. The surgical site was cleaned and white petrolatum with a gauze pressure dressing applied. The patient tolerated the procedure well and without complications and was given both verbal and written instruction on postoperative wound care. Follow up 1 week. The patient was discharged in good condition. Total local anesthesia with 1% lidocaine with 1:100,000 epi used: 13.5cc Bupivacaine 0.25% with 1:100,000 epinephrine: 2.0cc Staff Surgeon: Maico Klein MD Mohs Micrographic Surgery and Dermatologic Oncology Section of Dermatology, Department of Surgery documented in this encounter Plan of Treatment Upcoming Encounters Date Type Specialty Care Team Description 12/24/2021 Office Visit Dermatology Aryan Chris MD [address] [place] [address] DERMATOLOGY [place], [place] [address] (Wo rk) documented as of this encounter Visit Diagnoses Diagnosis Basal cell carcinoma of scalp Basal cell carcinoma of scalp and skin o f neck documented in this encounter Care Teams Mandrel Maker Relationship Specialty Start Date End Date Rebecca Monsivais MD PCP - General 01/09/10 [address] [place] [address] documented as of this encounter
--- OUTSIDE RECORDS SUMMARY | 2021-09-04 02:15 | XMS_ITS | Encounter Summary ---
:1950 Author Organization [facility] [place] [address] Care Team Providers Name Role Phone Rebecca Monsivais MD Primary Care Provider Reason for Visit Reason Comments Skin Check Encounter Details Date Type Department Care Team Description 07/07/2017 [facility] Ne oplasm of uncertain behavior of skin; Geri NAVAS SK (seborrheic keratosis) [address] [place] [address] [facility] [place], [place] [address] Social History Tobacco Use Types Packs/Day Years Used Date Former Smoker Alcohol Use Standard Drinks/Week Comments No 0 (1 standard drink = 0.6 oz pure alcoho l) Sex Assigned at Date Recorded Not on file documented as of this encounter Patient Instructions Patient InstructionsGanesh Oliva LPN - 07/07/2017 2:45 PM EDT Treatment and Wound Care Instructions Your treatment today: You have had a shave biopsy of your skin, which is a removal of tissue for examination under a microscope. This wound will heal without stitches. Allow 3-6 weeks for the wound to heal. If bleeding occurs, hold firm pressure against the wound for 15 minutes. If bleeding continues, calls the office or go to your local emergency room. Please allow 1-2 weeks for the biopsy results to return. Your physician or nurse will contact you with the results by phone or letter; follow-up will be discussed at that time. Wound Care Instructions: You will need to keep the dressing placed over the wound dry and intact for 24 hours. Afterwards, perform the following wound care daily: ?? Wash your hands before changing the dressing. ?? Remove the bandage and clean the area with mild soap and water, then gently pat the area dry. ?? Apply a small amount of Vaseline to the area, then cover the wound with a band-aid. Change your dressing daily until the wound is fully healed. ?? A small amount of yellow drainage is part of normal healing. The area might appear as a small depression with redness around the edge of the wound. This is normal. ?? Please contact the office you you notice any of the following signs of infection: increased tenderness, pain, drainage, or redness that becomes hot or hard around the wound. If you have further questions or concerns, please call the office at [phone]. If it is after 5PM, or a holiday or weekend, please call [phone] and ask for the Probation Agent on-call. documented in this encounter Progress Notes Maryse Ashley MD - 07/07/2017 2:45 PM EDT Images from the original note were not included. DERMATOLOGY ESTABLISHED PATIENT CLINIC NOTE Date of service: 07/07/2017 Genna Patel : 1950 Provider: Maryse Ashley MD Chief Complaint Patient presents with ??? Skin Check SKIN HISTORY: BCC - 11/2011 -MOH's left paranasal, several in the past- scalp,nose PATIENT PREFERENCES Preferred name: Genna Preferred contact method with results: My-[facility] Genna Patel is a 66 y.o. year old female. Established patient to [facility] Dermatology, new to ne. Last seen by Dr. Vides on 10/25/15. Patient presents to the clinic today for a full skin examination. ADR: No Known Allergies MEDS: Current Outpatient Prescriptions Medication Sig Dispense Refill ??? hydrochlorothiazide (HYDRODIURIL) 25 mg Tablet TAKE ONE TABLET BY MOUTH EVERY DAY 0 ??? mupirocin (BACTROBAN) 2 % ointment Apply topically 2 times daily. (Patient not taking: Reported on 10/25/2015) 22 g 0 No current facility-administered medications for this visit. ROS General: feeling well Skin: denies other skin complaints EXAM General: NAD, pleasant, cooperative Skin: Patient was asked to disrobe to the level of their comfort. A total body skin exam except for areas covered by underwear was performed. This includes examination of the skin of the face, ears, neck, chest, axillae, left and right upper and lower extremities, hands and feet, abdomen, and except the areas covered by underwear were not examined. Significant skin findings: A. 3.5 cm posterior to the frontal hairline: 1.4 cm telangectatic pink papule with a pearly border [Figure A] Figure A Photo(s) taken?? by Frieda Soto, Clinical Scribe, with patient's verbal permission for use for clinical and education purposes. ?? B. Torso and extremities: Scattered 0.4-0.6 cm pink-brown papules/plaque with waxy stuck-on appearance ASSESSMENT/PLAN: A. BCC Procedure: Skin biopsy by shave technique Location: 3.5 cm posterior to the frontal hairline Discussed indications for procedure and expectations including risks and benefits. Verbal consent obtained. Skin prep with alcohol. Local anesthesia with 1% xylocaine, 1/100,000 epinephrine. A sample of the lesion was removed by shave technique to the level of the dermis and submitted to Pathology. Hemostasis obtained (AlCl and/or electrocautery). There were no complications; the pt. tolerated the procedure well. The wound was dressed. Post-procedure expectations, wound care and activity restrictions were reviewed. Follow-up based on pathology results. Plan to refer to MOHS B. Seborrheic Keratoses -Reassured about benign nature and natural history. FOLLOW UP: Return to clinic in 6 months for full skin exam, or sooner if needed. Reminder placed in the system to schedule. Patient instructed to call with questions or concerns. Additional follow up based on pathology results. I am documenting this encounter acting as the scribe for and in the presence of Dr. Ashley.: GANESH OLIVA LPN and Frieda Soto, Clinical Scribe I performed the above scribed service and agree with the accuracy of the documentation in this encounter. Maryse Ashley MD Section of Dermatology [facility] documented in this encounter Plan of Treatment Upcoming Encounters Date Type Specialty Care Team Description 12/24/2021 Office Visit Dermatology Aryan Chris MD [address] [facility] DERMATOLOGY [place], [place] [address] (Wo rk) documented as of this encounter Procedures Procedure Name Priority Date/Time Associated Diagnosis Comme nts SURGICAL PATHOLOGY Routine 07/07/2017 3:39 PM Res ults for this REPORT EDT procedure are i n the results section. SPECIMEN TO Routine 07/07/2017 3:39 PM Neoplasm of Results f or this PATHOLOGY EDT uncertain behavior procedure are in of skin the results section. documented in this encounter Results Surgical Pathology Report (07/07/2017 3:39 PM EDT) Component Value Ref Test Analysis Performed At [facility] Range Method Time Signature Surgical [id number] ? Location: [facility] Report The signing pathologist has (i) examined the relevant preparation(s) for the [facility] specimen(s) and (ii) rendered or confirmed the diagnosis(es) . HOSPITAL LAB[facility]ATORY . ?Surgic al Pathology DIAGNOSIS A. Skin, 3.5cm posterior to the frontal hairline, shave ?biopsy: - Basal cell carcinoma, nodu lar and infiltrative type, present at the peripheral edge and base of the specimen Electronically signed by: ??Giuseppe NAVAS, Alfred England Verified: ??07/09/2017 ?Dermatopathologist Performed at: ??-[facility] Dept. of Pathology, [place], [place] CLINICAL INFORMATION Specimen Submitted: A - Skin, 3.5 cm posterior to the frontal hairline, kenyetta hines (1) Clinical History and Diagnosis: 1.4 cm telangiectatic pink papule with a pearly border; rule out BCC SPECIMEN PROCESSING A - Labeled/Fixative: 3.5 cm posterior to the frontal hairli ne, formalin. Quantity/Size: Single, 0.5 x 0.4 x 0.1 cm. Tissue Description: Shave of de leon-white and blue dyed skin. Sections/Processing: Inked and bisected. (T1) ??apb Specimen (Source) Anatomical Collection Method Collection Time Re ceived Time Location / / Volume Laterality 07/07/2017 3:39 PM EDT Maryse Ashley MD PATHOLOGY/CYTOLOGY ORDERABLE S Performing Organization Address City/[facility]/[place] [address] Specimen to Pathology (07/07/2017 3:39 PM EDT) Specimen Anatomical Collection Method Collection Time Receive d Time (Source) Location / / Volume Laterality AP Specimen 07/07/2017 3:39 PM 8 6:24 EDT PM EDT Narrative [facility] - 07/07/2017 6:24 PM EDT Specimen requisition ordered. ??Separate Pathology report to follow Resulting Agency Comment Spec In Lab Maryse Ashley MD PATHOLOGY/CYTOLOGY ORDERABLE S Performing Organization Address City/State/[place] [address] documented in this encounter Visit Diagnoses Diagnosis Neoplasm of uncertain behavior of skin SK (seborrheic keratosis) Other seborrheic keratosis documented in this encounter Care Teams Senior Staff Consultant Relationship Specialty Start Date End Date Rebecca Monsivais MD PCP - General 01/09/[address] [place] [address] documented as of this encounter
--- OUTSIDE RECORDS SUMMARY | 2021-09-04 02:15 | XMS_ITS | Encounter Summary ---
:1950 [place] [address] Care Team Providers Name Role Phone Rebecca Monsivais MD Primary Care Provider Reason for Visit Reason Comments Skin Check Encounter Details Date Type Department Care Team Description 07/28/2013 Follow-Up Dermatology at Rolando Love MD Skin exam for malignant neoplasm (Primar y Dx); [facility] Seborrheic keratosis, inflam ed; [address] [place] [address] [facility] [phone] RD-DERMATOLOGY [place], [place] [address] (Wo rk) Social History Tobacco Use Types Packs/Day Years Used Date Former Smoker Sex Assigned at Date Recorded Not on file documented as of this encounter Progress Notes Maryse Louis MD - 07/28/2013 4:58 PM EDT I was the supervising physician working with dermatology resident Dr. Fernandez in the dermatology clinic during this patient visit. The level of Resident supervision for this patient visit was indirect supervision with direct supervision immediately available. (definition: [facility] GME Policy Statement on [facility] Medical Education, Supervision of Graduate Medical Trainees) I was immediately available to Dr. Fernandez for questions and discussion regarding this visit. I have reviewed her encounter note detailsand level of service. MARYSE LOUIS MD Staff Physician Moriah Fernandez MD - 07/28/2013 1:30 PM EDT DERMATOLOGY - NEW PATIENT NOTE Date of service: 07/28/2013 Genna Patel : 1950 Dermatology Resident Note: Moriah Fernandez MD Chief Problem: skin cancer screening Chief Complaint Patient presents with ??? Skin Check Ms. Genna Patel is a 62 y.o. female. This is a new patient to me seen previously by Dr. Newton on 12/06/11. HPI: Ms. Patel presents for a full skin exam. She has a spot that is new on her left forearm, it itches, denies bleeding. No other specific concerns. She wears a hat and sunscreen. Past Skin History: BCC - 11/28 -MOH's, several in the past rosacea Medical History: There is no problem list on file for this patient. Medications: Current Outpatient Prescriptions Medication Sig Dispense Refill ??? mupirocin (BACTROBAN) 2 % ointment Apply topically 2 times daily. 22 g 0 Allergies: No Known Allergies Family History: No [...] were not examined. Specific skin findings: 1. Left forearm - 3 mm papule with waxy stuck on appearance with pruritus 2. Multiple 0.4-0.6cm brown papules with waxy, stuck-on appearance on back, breasts, right poplitealfossa. Milia-like cysts, comedone-like openings and/or fissuring on dermoscopy. 3. Multiple 0.2-0.4cm bright red, well-demarcated papules on thighs, trunk 4. Multiple atrophic scars, NER Diagnosis/Assessment/Treatment Plan: 1. Inflamed seborrheic keratosis- Discussed diagnosis, reassured patient of benign nature. Recommendtreating with LN, as lesion is inflamed; patient agreed to this plan. Procedure Note: Procedure: Destruction of lesion(s) with cryotherapy. Number:1 Location: as above Discussed procedure and expectations including risks (including risk of hypopigmentation) and benefits. Verbal consent obtained. Frozen with LN2, 15-30 second thaw time, TWICE. There were no complications; the patient tolerated the procedure well. Post-procedure expectations and wound care were reviewed. 2. Seborrheic keratoses- Reassured of benign nature. 3. Alexander Angiomas- Reassured of benign nature. Follow-up: RTC in 1 year. Instructed to call for questions or concerns. Moriah Fernandez MD Resident in Dermatology [facility] staff beveling and edging machine operator: Maryse Louis MD Section of Dermatology [facility] documented in this encounter Plan of Treatment Upcoming Encounters Date Type Specialty Care Team Description 12/24/2021 Office Visit Dermatology Aryan Chris MD [address] [place] [address] DERMATOLOGY [place], [place] [address] (Wo rk) documented as of this encounter Visit Diagnoses Diagnosis Skin exam for malignant neoplasm - Prima ry Screening for malignant neoplasm of the skin Seborrheic keratosis, inflamed Inflamed seborrheic keratosis Alexander angioma Nevus, non-neoplastic documented in this encounter Care Teams College Sports Assistant Relationship Specialty Start Date End Date Rebecca Monsivais MD PCP - General 01/09/[address] [place] [address] documented as of this encounter
--- OUTSIDE RECORDS SUMMARY | 2021-09-04 02:15 | XMS_ITS | Encounter Summary ---
:1950 [place] [address] Care Team Providers Name Role Phone Rebecca Monsivais MD Primary Care Provider Reason for Visit Reason Comments Wound Check Encounter Details Date Type Department Care Team Description 02/26/2012 Follow-Up Dermatology at [facility] Rg Mon, Visit for wound check Road (Primary Dx) [address] [place] [address] [address] [phone] [facility]-DERMATOLOGY [place], [place] [address] (Wo rk) Social History Tobacco Use Types Packs/Day Years Used Date Former Smoker Sex Assigned at Date Recorded Not on file documented as of this encounter Progress Notes Rg Mon MD - 02/26/2012 2:32 PM EST CC: Wound check HPI: Patient is a 61 y.o. female with history of basal cell carcinoma, left paranasal, s/p Mohs, repaired by complex linear repair and full thickness graft on 01/21/2012 who presents for wound check. Denies complications. Happy with cosmetic outcome. ROS: Otherwise well. No other skin complaints. Exam: General: No acute distress Skin: Limited examination of left paranasal shows a well-healed graft. Examination of left cheek shows a well healed incision line. Mild hypertrophy noted. Assessment and Plan 1. Basal cell carcinoma, left paranasal s/p Mohs with full thickness skin graft repair. Mild hypertrophy, discussed option of [place] Kenalog today, patient agreed. Procedure: Kenalog 5 mg/mL injected intralesionally, total 0.7 mL. Discussed indication for this procedure and potential side effects including ulceration and skin atrophy. Follow up: 1 month documented in this encounter Plan of Treatment Upcoming Encounters Date Type Specialty Care Team Description 12/24/2021 Office Visit Dermatology Aryan Chris MD [address] [facility] DERMATOLOGY [place], [place] [address] (Wo rk) documented as of this encounter Visit Diagnoses Diagnosis Visit for wound check - Primary Encounter for other specified aftercare documented in this encounter Care Teams Outbound Sales Executive Relationship Specialty Start Date End Date Rebecca Monsivais MD PCP - General 01/09/[address] [place] [address] documented as of this encounter
--- OUTSIDE RECORDS SUMMARY | 2021-09-04 02:15 | XMS_ITS | Encounter Summary ---
:1950 Author Organization [facility] [place] [address] Care Team Providers Name Role Phone Rebecca Monsivais MD Primary Care Provider Reason for Visit Reason Onset Date Comments Pre Procedure Call 09/29/2017 Encounter Details Date Type Department Care Team Description 09/29/2017 Telephone Dermatology at [facility] Stephanie Lamb, Pre Procedure Call [address] [place] [address] Social History Tobacco Use Types Packs/Day Years Used Date Former Smoker Alcohol Use Standard Drinks/Week Comments No 0 (1 standard drink = 0.6 oz pure alcoho l) Sex Assigned at Date Recorded Not on file documented as of this encounter Miscellaneous Notes Telephone Encounter - Stephanie Lamb LPN - 09/29/2017 4:44 PM EDT Unable to reach Genna for pre-op instructions for mohs surgery with Dr. Klein. Some information given per message. Stephanie Lamb LPN documented in this encounter Plan of Treatment Upcoming Encounters Date Type Specialty Care Team Description 12/24/2021 Office Visit Dermatology Aryan Chris MD [address] [place] [address] RD DERMATOLOGY [place], [place] [address] (Wo rk) documented as of this encounter Visit Diagnoses Not on filedocumented in this encounter Care Teams Certified Legal Investigator Relationship Specialty Start Date End Date Rebecca Monsivais MD PCP - General 01/09/[address] [place] [address] documented as of this encounter
--- OUTSIDE RECORDS SUMMARY | 2021-09-04 02:15 | XMS_ITS | Encounter Summary ---
:1950 Author Organization [facility] [place] [address] Care Team Providers Name Role Phone Rebecca Monsivais MD Primary Care Provider Reason for Visit Reason Comments Suture / Staple Removal Encounter Details Date Type Department Care Team Description 10/07/2017 [facility] Neoplasm of uncertain behavior of skin; Road Visit for suture removal [address] [facility] [address] [place], [place] [phone] [address] Social History Tobacco Use Types Packs/Day Years Used Date Former Smoker Smokeless Tobacco: Never Used Alcohol Use Standard Drinks/Week Comments No 0 (1 standard drink = 0.6 oz pure alcoho l) Sex Assigned at Date Recorded Not on file documented as of this encounter Progress Notes Maico Klein MD - 10/07/2017 2:15 PM EDT Images from the original note were not included. Dermatologic Surgery Post-Operative Wound Check Patient: Genna Patel Today's Date: 10/07/2017 Date of : 1950 Chief complaint: [] Wound check [x] Suture removal History of Present Illness: Genna Patel is a 67 y.o. female presents today for status post Mohs micrographic surgery for basal cell carcinoma, nodular and infiltrative, with surgery date 09/30/17, repaired by complex linear repair, located on the posterior to frontal hairline. Today, the patient reports contentment with the scar. Patient denies post- operative course complications and had an uneventful post-op course. Genna is requesting to have a concerning lesion on her right thigh examined today. Present for several months, has become irritated. Examination: Focused examination performed of the surgical site. This reveals a well healed incision. Examinationof the right thigh reveals a 0.8cm verrucous papule. Assessment: 1. Normal healing post-surgical site without any signs/symptoms of infection. 2. Seborrheic keratosis vs. Wart Plan: 1. May discontinue wound care at this point. 2. If any areas still healing, recommend continuing thin layer of Vaseline until skin has completelysealed over. 2. Bandage is optional from hereon (if going to be exposed to dirt outdoors). 3. Around 8 weeks post-operative, patient may begin firm massage to any parts of the scar that may feel firm to touch. This will feel firm for 3-4 months until sutures dissolve under the skin. 4. Sutures were removed today. Procedure: 1. Procedure: Skin biopsy by shave technique, rule out squamous cell carcinoma versus verruca vs SK. Location: Right thigh Discussed indications for procedure and expectations including risks and benefits. Verbal consent obtained. Skin prep with alcohol. Local anesthesia with 1% xylocaine, 1/100,000 epinephrine. A sample of the lesion was removed by shave technique to the level of the dermis and submitted to Pathology. Hem ostasis obtained (AlCl and/or electrocautery). There were no complications; the pt. tolerated the procedure well. The wound was dressed. Post-procedure expectations, wound care and activity restrictions were reviewed. Follow-up based on pathology results. documented in this encounter Plan of Treatment Upcoming Encounters Date Type Specialty Care Team Description 12/24/2021 Office Visit Dermatology Aryan Chris MD [address] [place] [address] DERMATOLOGY [place] [phone] (Wo rk) documented as of this encounter Procedures Procedure Name Priority Date/Time Associated Diagnosis Comme nts SURGICAL PATHOLOGY Routine 10/07/2017 2:03 PM Res ults for this REPORT EDT procedure are i n the results section. SPECIMEN TO Routine 10/07/2017 2:03 PM Neoplasm of Results f or this PATHOLOGY EDT uncertain behavior procedure are in of skin the results section. documented in this encounter Results Surgical Pathology Report (10/07/2017 2:03 PM EDT) Component Value Ref Test Analysis Performed At [employer] gist Range Method Time Signature Surgical [id number] ? Location: [facility] Report The signing pathologist has (i) examined the relevant preparation(s) for the [facility] specimen(s) and (ii) rendered or confirmed the diagnosis(es) . HOSPITAL LABORATORY . ?Surgic al Pathology DIAGNOSIS A. Skin, right thigh, shave ?? biopsy: - Verruca vulgaris, irritated and mildly inflamed. Electronically signed by: ??Andreina Arceo MD Verified: ??10/09/2017 ?Dermatopathologist Performed at: ??-[facility] Dept. of Pathology, [place], [place] CLINICAL INFORMATION Specimen Submitted: A - Skin, right thigh, shave biopsy (1) Clinical History and Diagnosis: 0.8 cm verrucous papule/SK vs. wart SPECIMEN PROCESSING A - Labeled/Fixative: Right thigh, formalin. Quantity/Size: Single, 0.7 x 0.6 x 0.2 cm. Tissue Description: Prasad-whit e papule with a delicate papillary-appearing surface. Sections/Processing: Inked and trisected. (T1) ??pps Specimen (Source) Anatomical Collection Method Collection Time Re ceived Time Location / / Volume Laterality 10/07/2017 2:03 PM EDT Maico Klein MD PATHOLOGY/CYTOLOGY ORDERABLE S Performing Organization Address City/State/ZIP Code Phon e Number [facility] [place] [phone] Specimen to Pathology (10/07/2017 2:03 PM EDT) Specimen Anatomical Collection Method Collection Time Receive d Time (Source) Location / / Volume Laterality AP Specimen 10/07/2017 2:03 PM 8 4:16 EDT PM EDT Narrative [facility] - 10/07/2017 4:16 PM EDT Specimen requisition ordered. ??Separate Pathology report to follow Resulting Agency Comment Spec In Lab Maico Klein MD PATHOLOGY/CYTOLOGY ORDERABLE S Performing Organization Address City/State/ZIP Code Phon e Number [place] [phone] documented in this encounter Visit Diagnoses Diagnosis Neoplasm of uncertain behavior of skin Visit for suture removal Encounter for removal of sutures documented in this encounter Care Teams Neurology Epilepsy Physician Relationship Specialty Start Date End Date Rebecca Monsivais MD PCP - General 01/09/[address] [place] [address] documented as of this encounter
--- OUTSIDE RECORDS SUMMARY | 2021-09-04 02:15 | XMS_ITS | Encounter Summary ---
:1950 Author Organization [place] [address] Care Team Providers Name Role Phone Rebecca Monsivais MD Primary Care Provider Encounter Details Date Type Department Care Team Description 01/22/2012 Telephone Dermatology at [facility] Rebecca Newton I, [address], [place] [address] [facility] [phone] [facility] [place] [phone] (Wo rk) Social History Tobacco Use Types Packs/Day Years Used Date Former Smoker Sex Assigned at Date Recorded Not on file documented as of this encounter Miscellaneous Notes Telephone Encounter - Rebecca Newton MD - 01/22/2012 7:57 AM EST Genna Patel was called on 1st day post-operatively for follow up. Ms. Patel reports the dressing is clean, dry and intact. There is no reported drainage or signs of infection. Ms. Patel reportsgood pain control. There was a brief conversation addressing the expected course, and signs of infection or other potential complications were discussed. Ms. Patel denies any other questions or concerns at this time. Ms. Patel is scheduled for follow up, and has been encouraged to call with any questions or concerns that arise prior to this appointment. documented in this encounter Plan of Treatment Upcoming Encounters Date Type Specialty Care Team Description 12/24/2021 Office Visit Dermatology Aryan Chris MD [address] [facility] DERMATOLOGY [place], [place] [address] (Wo rk) documented as of this encounter Visit Diagnoses Not on filedocumented in this encounter Care Teams Newsroom Intern Relationship Specialty Start Date End Date Rebecca Monsivais MD PCP - General 01/09/[address] [place] [address] documented as of this encounter
--- OUTSIDE RECORDS SUMMARY | 2021-09-04 02:15 | XMS_ITS | Clinical Summary ---
:1950 Author Organization [facility] Address [address] [place] [address] Care Team Providers Name Role Phone Unknown, Provider Primary Care Provider Social History Tobacco Use Types Packs/Day Years Used Date Never Assessed Sex Assigned at Date Recorded Not on file Plan of Treatment Health Maintenance Due Date Last Done Comments Fall Risk Screening 2014 Care Teams Auto Polisher Relationship Specialty Start Date End Date Unknown, ProviderMD PCP - General 10/09/15
[2021-09-04 09:53] LABS: COMMENT (LAB VIEW ONLY) 25.93 mg/dL
[2021-09-04 10:23] LABS: Hemoglobin A1C 6.2 % (<5.7)
== END 2021-09-04 02:12 | disposition home or self-care (01) ==
PROVIDERS: PCP Family Medicine; Visit Provider Family Medicine
DX: E11.9 Type 2 diabetes mellitus without complications (principal)
CPT/HCPCS: 36415; 82043; 82570; 83036

== ENCOUNTER 2022-06-13 08:57 | Outpatient (CLI) | payer MEDICARE, BC, SELFPAY ==
[2022-06-13 12:37] LABS: Hemoglobin A1C 6.1 % (<5.7)
[2022-06-13 12:59] LABS: ALT 42 U/L (14-59); AST 28 U/L (15-37); Albumin 4.1 g/dL (3.4-5.0); Alkaline Phosphatase 94 U/L (46-116); Anion Gap 8.8 mmol/L (3-11); BUN 19 mg/dL (7-18); Bilirubin, Total 0.5 mg/dL (0.2-1.0); CO2 29.2 mmol/L (21.0-32.0); CREATININE 0.8 mg/dL (0.55-1.02); Calcium 9.6 mg/dL (8.5-10.1); Calculated LDL 156 mg/dL (<100); Chloride 101 mmol/L (98-107); Cholesterol 252 mg/dL (<200); Estimated GFR 78.24 (mL/min/1.73m2); Glucose 116 mg/dL (74-106); HDL Cholesterol 61 mg/dL (40-60); Potassium 3.4 mmol/L (3.5-5.1); Sodium 139 mmol/L (136-145); Total Protein 8.2 g/dL (6.4-8.2); Triglyceride 179 mg/dL (<150)
== END 2022-06-13 08:58 | disposition home or self-care (01) ==
LOC: LOS 08:58
PROVIDERS: PCP Family Medicine; Referring Provider Family Medicine; Visit Provider Family Medicine
DX: E11.9 Type 2 diabetes mellitus without complications (principal); E78.5 Hyperlipidemia, unspecified; I10 Essential (primary) hypertension
CPT/HCPCS: 36415; 80053; 80061; 83036

== ENCOUNTER 2022-12-31 15:23 | Outpatient (REF) | payer MEDICARE, BC, SELFPAY ==
[2022-12-31 16:10] LABS: Microalb ug/mg Crea 21.9 ug/mg Cr
== END 2022-12-31 15:24 | disposition home or self-care (01) ==
LOC: LBN 15:23
PROVIDERS: PCP Family Medicine; Visit Provider Family Medicine
DX: E11.9 Type 2 diabetes mellitus without complications (principal)
CPT/HCPCS: 82043; 82570

== ENCOUNTER → 2023-01-01 01:27 | Outpatient (CLI) | payer MEDICARE, BC, SELFPAY ==
--- NOTE | 2023-01-01 07:15 | DI.RAD_ITS ---
Exam(s) XR LUMBAR SPINE COMPLETE EXAM: XR LUMBAR SPINE COMPLETE CLINICAL HISTORY: right sciatica,rt leg and hip pain. TECHNIQUE: 2D digital imaging was performed. Five views. COMPARISON: CR XR DEXA BONE DENSITY W/WO BRETT from 06/15/2021 FINDINGS: BONES: No fracture or destructive lesion. Vertebral body heights are maintained. There is sacralizat ion of the bilateral L5 transverse processes. There are mild facet degenerative changes at L3-4 and L4-5. DISKS: Intervertebral disc spaces are maintained. ALIGNMENT: Lumbar spinal alignment is within normal limits. SOFT TISSUE: Normal. IMPRESSION: Transitional type vertebral body at the lumbosacral junction. Facet joint degenerative changes. DATA REPOSITORY: RADIATION DOSE DELIVERED:
--- NOTE | 2023-01-01 07:15 | DI.RAD_ITS ---
Exam(s) XR HIP RT COMPLETE AP PELVIS EXAM: XR HIP RT COMPLETE AP PELVIS CLINICAL HISTORY: right sciatica,rt leg and hip pain, m25.551,m79.604. TECHNIQUE: 2D digital imaging was performed. Two views COMPARISON: No exams were available for comparison FINDINGS: BONES: No acute fracture is present. No bony destructive lesion is seen. JOINTS: No dislocation present. Hip joint spaces are maintained. Minimal acetabular spurring bilat erally. SI joints and pubic symphysis are unremarkable. SOFT TISSUE: Normal. IMPRESSION: No acute abnormality. DATA REPOSITORY: RADIATION DOSE DELIVERED:
== END ==
PROVIDERS: PCP Family Medicine; Visit Provider Family Medicine
DX: M25.551 Pain in right hip (principal); M79.604 Pain in right leg
CPT/HCPCS: 72110; 73502

== ENCOUNTER → 2023-07-17 02:10 | Outpatient (CLI) | payer MEDICARE, BC, SELFPAY ==
--- NOTE | 2023-07-17 07:45 | DI.DEXA_ITS ---
Exam(s) XR DEXA BONE DENSITY W/WO BRETT EXAM: XR DEXA BONE DENSITY W/WO BRETT CLINICAL HISTORY: osteoporosis, POSTMENOPAUSAL STATUS, Z78.0 TECHNIQUE: COMPARISON: CR XR DEXA BONE DENSITY W/WO BRETT from 06/15/2021 FINDINGS: Lateral Spine Image: Unremarkable. No compression deformities identified. Left hip: Total T-Score: -1.8. Compares to -2.2 on the prior examination. Total Z-Score: -0.1 T- and Z-scores: Findings are consistent with osteopenia. There is osteoporosis in the femoral neck with a T-score of -2.8. Lumbar Spine: Total T-Score: -3.6. This compares to -3.4 on the prior examination. Total Z-Score: -1.2 T- and Z-scores: Findings are consistent with osteoporosis. IMPRESSION: Osteoporosis in the lumbar spine and femoral neck.
--- NOTE | 2023-07-17 12:38 | DI.MAMMO_ITS ---
Exam(s) MAMMO SCREENING EXAM: MAMMO SCREENING CLINICAL HISTORY: screening, Z12.39 TECHNIQUE: Bilateral full field digital CC and MLO mammographic images were obtained with 3D tomosyn thesis and utilizing computer aided detection (CAD). COMPARISON: Available for comparison. FINDINGS: Masses/Architectural Distortion: There is a nodular opacity seen in the upper central left breast pre sent on prior examinations (03/03/2015). No new nodules are seen. No areas of architectural distorti on are seen. Microcalcifications: No suspicious pleomorphic-type are seen. Skin Thickening/Nipple Retraction: None. IMPRESSION: 1. No significant interval change with no specific features of malignancy noted. 2. Unless there is more urgent need, screening mammography is recommended, as per [employer] guidelines. BI-RADS Category 2 - Benign Findings Breast Density - Category B - Scattered areas of fibroglandular density Breast density category C or D implies that the patient has dense breast tissue. Dense breast tissue is very common and is not abnormal but dense breast tissue can make it harder to find cancer on a ma mmogram. Also, dense breast tissue may increase their breast cancer risk. This information about the result of the mammogram report was provided to the patient to raise their awareness. Use this report when you speak with the patient about their risks for breast cancer, which includes their family hist ory. At that time, you may recommend for more screening tests (Ultrasound or MRI) as they might be us eful based on their risk. A negative radiographic report should not delay biopsy if a dominant or clinically suspicious mass is present. Up to ten percent of cancers are not identified on mammography. A negative report may reinforce clinical impression. Adenosis and dense breasts may obscure an underlying neoplasm. False positive reports average 6 to 10%. Patient will receive a letter notifying them of these results.
== END ==
PROVIDERS: PCP Family Medicine; Visit Provider Family Medicine
DX: Z12.31 Encounter for screening mammogram for malignant neoplasm of breast (principal); Z78.0 Asymptomatic menopausal state; Z13.820 Encounter for screening for osteoporosis; M81.0 Age-related osteoporosis without current pathological fracture
CPT/HCPCS: 77063; 77067; 77080

== ENCOUNTER 2023-08-06 04:40 | Outpatient (RCR) | payer MEDICARE, BC, SELFPAY ==
[2023-08-06] MEDS: Denosumab 60 MG/ML SYR SC (11:04)
== END 2023-08-17 23:59 | disposition home or self-care (01) ==
LOC: INF 04:40
PROVIDERS: PCP Family Medicine; Visit Provider Family Medicine
DX: M81.0 Age-related osteoporosis without current pathological fracture (principal)
CPT/HCPCS: 96372; J0897

== ENCOUNTER 2024-02-19 02:59 | Outpatient (RCR) | payer MEDICARE, BC, SELFPAY ==
[2024-02-19] MEDS: Denosumab 60 MG/ML SYR SC (10:53)
== END 2024-03-19 23:59 | disposition home or self-care (01) ==
LOC: INF 02:59
PROVIDERS: PCP Family Medicine; Visit Provider Family Medicine
DX: M81.0 Age-related osteoporosis without current pathological fracture (principal)
CPT/HCPCS: 96372; J0897

== ENCOUNTER 2024-07-15 03:14 | Outpatient (CLI) | payer MEDICARE, BC, SELFPAY ==
[2024-07-15 11:23] LABS: ALT 51 U/L (14-59); AST 49 U/L (15-37); Albumin 4.4 g/dL (3.4-5.0); Alkaline Phosphatase 85 U/L (46-116); Anion Gap 9.3 mmol/L (3-11); BUN 16 mg/dL (7-18); Bilirubin, Total 0.6 mg/dL (0.2-1.0); CO2 30.7 mmol/L (21.0-32.0); CREATININE 0.6 mg/dL (0.55-1.02); Calcium 10.1 mg/dL (8.5-10.1); Calculated LDL 111 mg/dL (<100); Chloride 99 mmol/L (98-107); Cholesterol 202 mg/dL (<200); Estimated GFR 94.13 (mL/min/1.73m2); Glucose 106 mg/dL (74-106); HDL Cholesterol 59 mg/dL (>or=50); Potassium 3.5 mmol/L (3.5-5.1); Sodium 139 mmol/L (136-145); Total Protein 8.5 g/dL (6.4-8.2); Triglyceride 163 mg/dL (<150); Vitamin B12 563 pg/mL (193-986)
== END 2024-07-15 03:15 | disposition home or self-care (01) ==
LOC: LBO 03:14
PROVIDERS: PCP Family Medicine; Visit Provider Family Medicine
DX: K44.9 Diaphragmatic hernia without obstruction or gangrene (principal); K29.60 Other gastritis without bleeding; I10 Essential (primary) hypertension
CPT/HCPCS: 36415; 80053; 80061; 82607

== ENCOUNTER 2024-07-29 09:41 | Outpatient (REF) | payer MEDICARE, BC, SELFPAY ==
[2024-07-29 11:54] LABS: COMMENT (LAB VIEW ONLY) 140.23 mg/dL; Microalb ug/mg Crea 10.1 ug/mg Cr
== END 2024-07-29 09:42 | disposition home or self-care (01) ==
LOC: LBN 09:41
PROVIDERS: PCP Family Medicine; Visit Provider Family Medicine
DX: E11.9 Type 2 diabetes mellitus without complications (principal)
CPT/HCPCS: 82043; 82570

== ENCOUNTER 2024-08-17 01:53 | Outpatient (CLI) | payer MEDICARE, BC, SELFPAY ==
--- NOTE | 2024-08-17 07:30 | DI.MAMMO_ITS ---
Exam(s) MAMMO SCREENING EXAM: MAMMO SCREENING CLINICAL HISTORY: screening,Z12.39 TECHNIQUE: Mammograms were interpreted according to the usual protocol including computer analysis with CAD system, tomosynthesis and C-view imaging. COMPARISON: 2015 through 2023 FINDINGS: The breasts are composed of scattered fibroglandular densities, Breast Density category B. No suspicious masses or suspicious microcalcifications are seen. No skin thickening or abnormal axillary lymph nodes are seen. There has been no significant change from prior exams. IMPRESSION: BI-RADS Category 1, Negative mammogram Yearly screening mammography is recommended. Breast Density - Category B - There are scattered areas of fibroglandular density. Breast density Category C or D implies that the patient has dense breast tissue. Dense breast tissue can make it harder to find cancer on a mammogram. Dense breast tissue is also associated with an increased risk of breast cancer. This information about the result of the mammogram report was provided to the patient to raise their awareness. Use this report when you speak with the patient about their risks for breast cancer, which includes their family history. At that time, you may recommend additional screening tests (Ultrasound or MRI) as these tests may add significant information. A negative radiographic report should not delay biopsy if a dominant or clinically suspicious mass is present. Up to ten percent of cancers are not identified on mammography. A negative report may reinforce clinical impression. Adenosis and dense breasts may obscure an underlying neoplasm. False positive reports average 6 to 10%. Patient will receive a letter notifying them of these results.
== END 2024-08-17 02:13 ==
PROVIDERS: PCP Family Medicine; Visit Provider Family Medicine
DX: Z12.31 Encounter for screening mammogram for malignant neoplasm of breast (principal); R92.323 Mammographic fibroglandular density, bilateral breasts
CPT/HCPCS: 77063; 77067

== ENCOUNTER → 2024-10-11 10:02 | Outpatient (BNVA) | payer MEDICARE, BC, SELFPAY | PROVIDERS: PCP Family Medicine; Referring Provider Family Medicine; Visit Provider Student in an Organized Health Care Education/Training Program | DX: M65.332 Trigger finger, left middle finger (principal) | CPT/HCPCS: 99204 ==

== ENCOUNTER 2024-12-01 17:40 | Outpatient (REF) | payer MEDICARE, BC, SELFPAY ==
--- NOTE | 2024-12-01 07:44 | SKI_PTH ---
PATIENT: Genna Patel LOC: [facility] U#:[id number] AGE/SX: 74/F ROOM: RE12/01/[address]: Darío Fraire MD : 1950 BED: DIS: 12/01/2024 SPEC #: [id number] RECD: 12/01/24 18:10 STATUS: GABBY REAristeo #: [id number] MAURIZIO: 12/01/24 07:[address]: Darío Fraire DEPT: Surgical Specimen RECD BY: Frieda Luevano ENTERED: 12/01/24 18:11 SP TYPE: SKI OTHR DR: Rebecca Monsivais MD, DC Tissues: 1 - SKIN BIOPSY(SHAVE/PUNCH) Procedures: GROSS AND MICRO LEVEL 5 Comments: [id number]
== END 2024-12-01 17:41 | disposition home or self-care (01) ==
LOC: LBN 17:40
PROVIDERS: PCP Family Medicine; Visit Provider Otolaryngology
DX: D21.9 Benign neoplasm of connective and other soft tissue, unspecified (principal); R22.1 Localized swelling, mass and lump, neck
CPT/HCPCS: 88305; 88307

== ENCOUNTER 2024-12-07 06:11 | Day surgery (SDC) | payer MEDICARE, BC, SELFPAY ==
[2024-12-07 06:22] VITALS: BP 121/95; PULSE 96; RESP 16; TEMP 36.7; O2SAT 96
--- NOTE | 2024-12-07 07:01 | W.PM.DSUDISC ---
Date of service: 12/07/24 Discharge Plan Disposition Patient Disposition: Home Condition: Good Discharge Details Reason For Visit: Left middle trigger finger Attending Provider: Chencho Alford Primary Care Provider: Rebecca Monsivais Home Meds and New Rx's Prescriptions: Continued loratadine 10 mg tablet 10 mg PO DAILY PRN losartan 100 mg tablet 100 mg PO DAILY Qty: 90 4RF atorvastatin 10 mg tablet 10 mg PO DAILY Qty: 90 4RF hydrochlorothiazide 25 mg tablet 25 mg PO DAILY Qty: 90 3RF cholecalciferol (vitamin D3) 2,000 UNIT tablet 2,000 unit PO DAILY Patient Comments: 03/25/16- Taking 2000 units daily per HOANG. aj 01/29/16- Told to increased to [address] Ramos fish oil-dha-epa 1 EACH capsule 1 ea PO DAILY omeprazole 20 mg capsule,delayed release(DR/EC) 20 mg PO DAILY Qty: 90 4RF potassium chloride 20 mEq tablet extended release 20 meq PO DAILY Qty: 90 5RF Discharge Instructions Stand Alone Forms: Rocío Tong Finger Release Referrals: Chencho Alford MD [ [facility] STAFF PHYSICIAN, Orthopaedic Surgical] Activity:: Elevate Remove Dressings/Wound Care:: 48 hours Shower/Bathe:: 48 hours Diet:: As Tolerated Discharge Orders Discharge Orders: Discharge Order (Routine); Ordered 12/07/24 Ordered By: Pamella Ellison
[2024-12-07] MEDS: Lidocaine 1% Multi-Dose W/EPI 1/100,000 50 ML VIAL (07:28)
[2024-12-07] MEDS: Sodium Bicarbonate 50 MEQ/50 ML VIAL (07:28)
[2024-12-07 07:42] VITALS: BP 105/86; PULSE 86; RESP 16; TEMP 37.1; O2SAT 93
--- NOTE | 2024-12-07 07:44 | W.PM.OP ---
Operative Note Operative Note PRE-OP DIAGNOSIS: Left Middle Finger Trigger Finger POST-OP DIAGNOSIS: same PROCEDURE: Trigger Finger Release - Left Middle Finger SURGEON: Chencho Alford ANESTHESIA TYPE: Local By Surgeon Refer to Anesthesia Record ESTIMATED BLOOD LOSS: 0 PATHOLOGY: none sent COMPLICATIONS: None Patient was transported to: same day Patient's condition: stable Indications: I have seen Genna in clinic for symptoms of a trigger finger. The catching, clicking, locking, and pain limited function. The diagnosis of trigger finger was evident. The symptoms had not responded to conservative measures. I discussed trigger finger release with the patient. I reviewed the risks of the procedure to include, but not limited to, bleeding, infection, pain, stiffness, incomplete release, damage to nerves or vessels, continued catching, recurrence. Despite these risks, the patient elected to proceed. Findings: There was a tightened A1 vasile which was released. The flexor tendons were inspected and the patient was able to move the finger without any catching, clicking, or locking. There is some notable fraying of the flexor tendons and associated synovitis. Procedure Description: Genna was greeted in the preoperative holding area where the correct side was identified and marked. The consent was reviewed with the patient and signed. All questions were answered. She was taken back to the operating room. The patient was placed into the supine position on the operating room table with the left arm on an arm board. All bony prominences were well padded. No prophylactic antibiotics were administered since this was a clean, elective hand surgical case. The left arm was then prepped with Chloraprep and draped in a standard fashion with stockinette and extremity drape. A timeout to confirm correct identity, side and site, procedure, allergies, anesthesia, and medical concerns was performed. The surgical site was marked as a longitudinal incision directly over the A1 vasile of the involved digit. This was confirmed with palpation during finger flexion. This area, overlying the metacarpal head, was then anesthetized with 1% Lidocaine. The patient tolerated this well and once the anesthetic had setup, the procedure began. A longitudinal incision was made through the distal flexor crease, approximately 1cm. The deep tissues were dissected bluntly. Once the A1 vasile and flexor tendons were identified the soft tissue including neurovascular structures were retracted medially and laterally. There were no crossing structures over the A1 vasile. The proximal edge of the vasile was identified and the vasile was incised with tenotomy scissors. There was a release of the tendons once this was fully released. The tendons were then removed from the wound and inspected. Excess synovium was resected. There was notable fraying of the tendons although no tendon laceration. The tendons were then returned and the patient was asked to move the finger into deep flexion and back to extension. There was no recreation of the pre-operative symptoms. The hand was then once more inspected for any A0 vasile or area of possible constriction. The wound was then irrigated and the skin was closed with a 4-0 Nylon. This was dressed with gauze and a Conform dressing. The patient tolerated the procedure well and was returned to the Same Day Surgery area in a stable condition suffering no known complication. Date of Procedure: 12/07/24
== END 2024-12-07 07:56 | disposition home or self-care (01) ==
PROVIDERS: PCP Family Medicine; Visit Provider Student in an Organized Health Care Education/Training Program
PROC: (CPT 26055; principal; 2024-12-07 07:30)
DX: M65.332 Trigger finger, left middle finger (principal)
CPT/HCPCS: 26055; J2004

== ENCOUNTER → 2024-12-16 09:10 | Outpatient (BNVA) | payer MEDICARE, BC, SELFPAY | PROVIDERS: PCP Family Medicine; Referring Provider Family Medicine; Visit Provider Physician Assistant | DX: Z47.89 Encounter for other orthopedic aftercare (principal); M65.332 Trigger finger, left middle finger | CPT/HCPCS: 99024 ==